=== PATIENT | female | born 1940 | race Caucasian/White ===

== ENCOUNTER → 2016-04-28 | Outpatient (CLI) | payer MEDICARE ==
[~2016-04-28] MED LIST: ATEN50TA2 PO; BUSP1TAB PO; CALC500T19 PO; CALC600T7 PO; FURO40TA2 PO; GLUC750C4 PO; LEVO25TA5 PO; PHEN200C PO; SPIR25TA2 PO; VIT D3
--- NOTE | 2016-04-28 14:57 | REP ---
WHOLE BODY BONE SCAN: Following the intravenous administration of 21.9 millicuries technetium 99m MDP, the patient's whole body is imaged in the anterior and posterior projections, with additional oblique images of the thoracic and pelvis regions performed as well as lateral views of the calvarium, knees and feet. There is increased periarticular uptake in both shoulders, elbows, wrists, knees, and ankles compatible with arthritic changes. There is curvature of the thoracolumbar spine. There is no scintigraphic evidence of osseous metastases. There is no definite evidence of Paget's disease. Renal and bladder activity are seen. IMPRESSION: Increased periarticular uptake in multiple joints compatible with arthritic changes. No compelling scintigraphic evidence of osseous metastases or Paget's disease. Signed by Rommel Szymanski MD 04/28/2016 04:15 P
== END ==
LOC: M RAD 09:56
PROVIDERS: ATTEND Internal Medicine Rheumatology
DX: R79.89 Other specified abnormal findings of blood chemistry (principal)
CPT/HCPCS: 78306; A9503

== ENCOUNTER → 2016-05-16 | Outpatient (CLI) | payer MEDICARE ==
[~2016-05-16] MED LIST changes: +GASTROGRAFIN SOLUTION 30ML (Q9963) As Ordered ONE; +ISOVUE-370 76% 100ML VIAL (Q9967) As Ordered ONE
--- NOTE | 2016-05-16 12:41 | REP ---
CT of the abdomen, multiphase imaging of the pelvis is excluded: Scanning is initially performed without IV contrast. This is followed by dual phase IV contrast enhanced scanning initially during the portal venous phase of enhancement and later during the delayed equilibrium phase of enhancement. There is bowel contrast on all phases of the study. Comparison is the abdominal ultrasound 04/22/2010. The visualized lung dixon are unremarkable. The hepatic parenchyma is homogeneous on all phases of the study. The hepatic parenchyma is similar density to the spleen. There is no CT evidence of hepato steatosis. No focal hepatic masses or cysts are identified. There is no intrahepatic or extrahepatic biliary duct dilatation. The pancreas is normal size and unremarkable. The spleen measures 14 centimeters craniocaudad. This is in the upper normal size range. Normal is 12-15 cm. The splenic parenchyma is homogeneous. The adrenals are unremarkable. The kidneys are unremarkable except for a small subcapsular cortical cyst in the left kidney measuring up to 15 mm at the upper pole posteriorly. The abdominal aorta is unremarkable except for occasional calcified atheroma. There are occasional normal-sized periaortic lymph nodes. The visualized bowel is unremarkable. There is apparent wall thickening of the gastric antrum. This is nonspecific and could be artifact from under distension or could represent inflammation or neoplasm. Please correlate clinically. Impression: The liver is unremarkable. Spleen is upper normal size but otherwise unremarkable. There is a left renal cyst. There is apparent thickening of the gastric antral wall, nonspecific, artifact from under distension versus inflammation versus neoplasm. There are no comparison studies. Signed by Rommel Soria MD 05/16/2016 12:32 P
== END ==
LOC: M RAD 11:06
PROVIDERS: ATTEND Internal Medicine Rheumatology
DX: R79.89 Other specified abnormal findings of blood chemistry (principal); N28.1 Cyst of kidney, acquired
CPT/HCPCS: 74170; Q9963; Q9967

== ENCOUNTER → 2016-08-01 | Outpatient (REF) | payer MEDICARE ==
[~2016-08-01] MED LIST changes: -GASTROGRAFIN SOLUTION 30ML (Q9963) As Ordered ONE; -ISOVUE-370 76% 100ML VIAL (Q9967) As Ordered ONE
[2016-08-01 13:26] LABS: BASO % 0.3 % (0.0-1.0); EOS % 0.4 % (0.0-3.0); LYMPH # 0.9 K/mm3 (1.5-4.5); LYMPH % 20.5 % (24.0-44.0); MEAN CORPUSCULAR HEMOGLOBIN 32.3 pg (27.0-33.0); MEAN CORPUSCULAR HGB CONC 33.1 g/dl (32.0-36.5); MEAN CORPUSCULAR VOLUME 97.6 fl (80.0-96.0); MONO # 0.4 K/mm3 (0.0-0.8); MONO % 9.5 % (0.0-5.0); NEUTROPHILS % 68.2 % (36.0-66.0); RED CELL DISTRIBUTION WIDTH 17.4 % (11.5-14.5); WHITE BLOOD COUNT 4.3 K/mm3 (4.0-10.0)
== END ==
LOC: M LABDRAW1 12:15
PROVIDERS: ATTEND Physician Assistant
DX: M05.79 Rheumatoid arthritis with rheumatoid factor of multiple sites without organ or systems involvement (principal); R79.89 Other specified abnormal findings of blood chemistry; Z79.899 Other long term (current) drug therapy

== ENCOUNTER → 2016-09-22 | Outpatient (REF) | payer MEDICARE ==
[2016-09-22 12:28] LABS: BASO % 0.8 % (0.0-1.0); EOS % 0.4 % (0.0-3.0); LYMPH # 0.9 K/mm3 (1.5-4.5); LYMPH % 19.7 % (24.0-44.0); MEAN CORPUSCULAR HEMOGLOBIN 33.5 pg (27.0-33.0); MEAN CORPUSCULAR HGB CONC 32.4 g/dl (32.0-36.5); MEAN CORPUSCULAR VOLUME 103.4 fl (80.0-96.0); MONO # 0.4 K/mm3 (0.0-0.8); MONO % 9.4 % (0.0-5.0); NEUTROPHILS # 2.8 K/mm3 (1.8-7.7); RED CELL DISTRIBUTION WIDTH 14.4 % (11.5-14.5)
[2016-09-22 14:49] LABS: ALBUMIN 3.5 GM/DL (3.2-5.2); CREATININE FOR GFR 1.02 MG/DL (0.55-1.02); GLOMERULAR FILTRATION RATE 55.8 (>39)
== END ==
LOC: M LABDRAW1 11:41
PROVIDERS: ATTEND Internal Medicine Rheumatology
DX: M05.79 Rheumatoid arthritis with rheumatoid factor of multiple sites without organ or systems involvement (principal); Z79.899 Other long term (current) drug therapy

== ENCOUNTER → 2016-11-12 | Outpatient (REF) | payer MEDICARE ==
[2016-11-12 12:13] LABS: BASO % 0.5 % (0.0-1.0); EOS % 0.5 % (0.0-3.0); LYMPH # 0.5 10^3/uL (1.5-4.5); LYMPH % 13.2 % (24.0-44.0); MEAN CORPUSCULAR HEMOGLOBIN 33.2 pg (27.0-33.0); MEAN CORPUSCULAR HGB CONC 32.7 g/dl (32.0-36.5); MEAN CORPUSCULAR VOLUME 101.5 fl (80.0-96.0); MONO # 0.4 10^3/uL (0.0-0.8); MONO % 10.5 % (0.0-5.0); NEUTROPHILS % 74.3 % (36.0-66.0); PLATELET COUNT, AUTOMATED 153 10^3/uL (150-450); RED CELL DISTRIBUTION WIDTH 13.2 % (11.5-14.5); WHITE BLOOD COUNT 4.1 10^3/uL (4.0-10.0)
[2016-11-12 12:19] LABS: ADD MANUAL DIFFER NO; DIFF SLIDE NUMBER 171
[2016-11-12 12:31] LABS: ALBUMIN/GLOBULIN RATIO 0.73 (1.00-1.93); ALKALINE PHOSPHATASE 246 U/L (45-117); ALT/SGPT 48 U/L (12-78); ANION GAP 7 MEQ/L (8-16); AST/SGOT 28 U/L (15-37); BILIRUBIN,TOTAL 0.3 MG/DL (0.2-1.0); BLOOD UREA NITROGEN 28 MG/DL (7-18); CALCIUM LEVEL 9.1 MG/DL (8.8-10.2); CARBON DIOXIDE LEVEL 29 MEQ/L (21-32); CHLORIDE LEVEL 104 MEQ/L (98-107); GLOMERULAR FILTRATION RATE > 60.0 (>39); GLUCOSE, FASTING 90 MG/DL (83-110); SODIUM LEVEL 140 MEQ/L (136-145); TOTAL PROTEIN 7.1 GM/DL (6.4-8.2)
== END ==
LOC: M LABDRAW1 10:05
PROVIDERS: ATTEND Family Medicine
DX: E03.9 Hypothyroidism, unspecified (principal); M05.79 Rheumatoid arthritis with rheumatoid factor of multiple sites without organ or systems involvement

== ENCOUNTER → 2016-11-12 | Outpatient (REF) | payer MEDICARE ==
[2016-11-12 12:16] LABS: ALBUMIN 3.2 GM/DL (3.2-5.2); ALKALINE PHOSPHATASE 262 U/L (45-117); ALT/SGPT 46 U/L (12-78); AST/SGOT 29 U/L (15-37); BLOOD UREA NITROGEN 26 MG/DL (7-18); CREATININE FOR GFR 0.85 MG/DL (0.55-1.02); GLOMERULAR FILTRATION RATE > 60.0 (>39)
[2016-11-12 12:22] LABS: BASO % 0.2 % (0.0-1.0); EOS % 0.5 % (0.0-3.0); IMMATURE GRANULOCYTE % 0.9 % (0-0); LYMPH # 0.6 10^3/uL (1.5-4.5); LYMPH % 13.6 % (24.0-44.0); MEAN CORPUSCULAR HGB CONC 32.6 g/dl (32.0-36.5); MEAN CORPUSCULAR VOLUME 101.2 fl (80.0-96.0); MONO # 0.4 10^3/uL (0.0-0.8); NEUTROPHILS # 3.2 10^3/uL (1.8-7.7); NEUTROPHILS % 74.8 % (36.0-66.0); RED CELL DISTRIBUTION WIDTH 13.2 % (11.5-14.5); WHITE BLOOD COUNT 4.3 10^3/uL (4.0-10.0)
== END ==
LOC: M LAB REF 11:48
PROVIDERS: ATTEND Internal Medicine Rheumatology
DX: M05.79 Rheumatoid arthritis with rheumatoid factor of multiple sites without organ or systems involvement (principal)

== ENCOUNTER 2017-01-14 07:11 | Day surgery (SDC) | payer MEDICARE ==
[~2017-01-14] VITALS: Ht 157.5 cm; Wt 57.2 kg
[~2017-01-14 07:11] MED LIST changes: +ACETAMINOPHEN 325 MG TAB PO PRN; +BSS with VANC/TOB/EPI for EYE CASES IR ONE; +CYCLOPENTOLATE 2% OPHTH SOLN 2ML BTL OS ONE; +LIDOCAINE 3.5 % 1ML OPHTH TOPICAL GEL OU ONE; +OFLOXACIN 0.3 % (OCUFLOX) OPTH SOL 5ML OS ONE; +PHENYLEPHRINE 2.5% OPHTH SOL 2ML OS ONE; +PROPARACAINE 0.5% OPHTH SOL 15ML XX PRN; +TROPICAMIDE 1% OPHTH SOLN 2ML OS ONE
[2017-01-14] MEDS ORDERED: PROPARACAINE 0.5% OPHTH SOL 15ML OS PRN (07:48)
[2017-01-14] MEDS ORDERED: TRIMETHOBENZAMIDE 300 MG CAP PO PRN (08:00)
[2017-01-14] MEDS ORDERED: MOXIFLOXACIN IN BSS 0.25MG/0.25ML INTRACAMERAL INJ (OR EYE ONLY)(J2280) As Ordered ONE (08:34)
[2017-01-14] MEDS ORDERED: HEALON DUET (HEALON 10MG/ML 0.55ML & HEALON ENDOCOAT 30MG/ML 0.85ML) As Ordered ONE (08:34)
[2017-01-14] MEDS ORDERED: LIDOCAINE 1% SDV 5 ML VIAL As Ordered ONE (08:34)
[2017-01-14] MEDS ORDERED: POVIDONE-IODINE 5% OPHTH PREP SOL 30ML As Ordered ONE (08:34)
[2017-01-14] MEDS ORDERED: TRIAMCINOLONE PRES FR 40 MG/ML 1ML(TRIESENCE)(OR EYE ONLY)(J3300 PER 1MG) As Ordered ONE (08:34)
[2017-01-14] MEDS ORDERED: fentaNYL 100 MCG/2 ML INJECTION (J3010) As Ordered ONE (08:52)
[2017-01-14] MEDS ORDERED: MIDAZOLAM INJ 2 MG/2 ML VIAL (J2250) As Ordered ONE (08:52)
[2017-01-14 10:00] VITALS: BP 116/63
== END 2017-01-14 10:07 | disposition home or self-care (01) ==
LOC: M SDC 07:11
PROVIDERS: ATTEND Ophthalmology
DX: H26.9 Unspecified cataract (principal); I10 Essential (primary) hypertension; E03.9 Hypothyroidism, unspecified; K21.9 Gastro-esophageal reflux disease without esophagitis; M05.70 Rheumatoid arthritis with rheumatoid factor of unspecified site without organ or systems involvement; G40.909 Epilepsy, unspecified, not intractable, without status epilepticus; Z79.899 Other long term (current) drug therapy; Z88.2 Allergy status to sulfonamides
CPT/HCPCS: 66984; J2250; J2280; J3010; J3300; V2632

== ENCOUNTER → 2017-06-15 | Outpatient (REF) | payer MEDICARE ==
[2017-06-15 12:45] LABS: BASO % 0.4 % (0.0-1.0); EOS % 0.7 % (0.0-3.0); HEMATOCRIT 34.2 % (36.0-47.0); HEMOGLOBIN 11.3 g/dl (12.0-15.5); IMMATURE GRANULOCYTE % 0.4 % (0-3.0); LYMPH # 0.9 10^3/uL (1.5-4.5); LYMPH % 30.7 % (24.0-44.0); MEAN CORPUSCULAR HEMOGLOBIN 33.3 pg (27.0-33.0); MEAN CORPUSCULAR VOLUME 100.9 fl (80.0-96.0); MONO # 0.5 10^3/uL (0.0-0.8); MONO % 16.8 % (0.0-5.0); NEUTROPHILS # 1.4 10^3/uL (1.8-7.7); PLATELET COUNT, AUTOMATED 111 10^3/uL (150-450); RED BLOOD COUNT 3.39 10^6/uL (4.00-5.40); RED CELL DISTRIBUTION WIDTH 14.1 % (11.5-14.5); WHITE BLOOD COUNT 2.8 10^3/uL (4.0-10.0)
== END ==
LOC: M LABDRAW1 09:11
DX: Z79.899 Other long term (current) drug therapy (principal)
CPT/HCPCS: 85027

== ENCOUNTER → 2017-07-09 | Outpatient (REF) | payer MEDICARE ==
[2017-07-09 09:32] LABS: BASO % 0.6 % (0.0-1.0); HEMATOCRIT 35.4 % (36.0-47.0); HEMOGLOBIN 11.8 g/dl (12.0-15.5); IMMATURE GRANULOCYTE % 0.3 % (0-3.0); LYMPH # 0.8 10^3/uL (1.5-4.5); LYMPH % 25.7 % (24.0-44.0); MEAN CORPUSCULAR HEMOGLOBIN 33.3 pg (27.0-33.0); MEAN CORPUSCULAR HGB CONC 33.3 g/dl (32.0-36.5); MONO # 0.5 10^3/uL (0.0-0.8); MONO % 16.2 % (0.0-5.0); NEUTROPHILS # 1.8 10^3/uL (1.8-7.7); NEUTROPHILS % 56.2 % (36.0-66.0); PLATELET COUNT, AUTOMATED 129 10^3/uL (150-450); RED BLOOD COUNT 3.54 10^6/uL (4.00-5.40); RED CELL DISTRIBUTION WIDTH 13.3 % (11.5-14.5); WHITE BLOOD COUNT 3.2 10^3/uL (4.0-10.0)
[2017-07-09 10:00] LABS: ALKALINE PHOSPHATASE 255 U/L (45-117); ALT/SGPT 23 U/L (12-78); AST/SGOT 20 U/L (7-37); C REACTIVE PROTEIN QUANTITATIV 5.98 MG/DL (0.00-0.30); CREATININE FOR GFR 1.05 MG/DL (0.55-1.30); GLOMERULAR FILTRATION RATE 53.8 (>39)
[2017-07-09 10:38] LABS: ERYTHROCYTE SEDIMENTATION RATE 82 mm/hr (0-30)
== END ==
LOC: M LABDRAW1 08:49
DX: M05.79 Rheumatoid arthritis with rheumatoid factor of multiple sites without organ or systems involvement (principal)
CPT/HCPCS: 84460

== ENCOUNTER → 2017-09-18 | Outpatient (REF) | payer MEDICARE ==
[2017-09-18 10:21] LABS: BASO % 0.2 % (0.0-1.0); EOS % 0.4 % (0.0-3.0); HEMATOCRIT 35.2 % (36.0-47.0); HEMOGLOBIN 11.4 g/dl (12.0-15.5); IMMATURE GRANULOCYTE % 0.4 % (0-3.0); LYMPH # 0.7 10^3/uL (1.5-4.5); LYMPH % 15.2 % (24.0-44.0); MEAN CORPUSCULAR HEMOGLOBIN 32.4 pg (27.0-33.0); MEAN CORPUSCULAR HGB CONC 32.4 g/dl (32.0-36.5); MONO # 0.4 10^3/uL (0.0-0.8); MONO % 9.4 % (0.0-5.0); NEUTROPHILS # 3.3 10^3/uL (1.8-7.7); NEUTROPHILS % 74.4 % (36.0-66.0); PLATELET COUNT, AUTOMATED 123 10^3/uL (150-450); RED BLOOD COUNT 3.52 10^6/uL (4.00-5.40); RED CELL DISTRIBUTION WIDTH 13.5 % (11.5-14.5); WHITE BLOOD COUNT 4.5 10^3/uL (4.0-10.0)
[2017-09-18 10:41] LABS: ERYTHROCYTE SEDIMENTATION RATE 63 mm/hr (0-30)
[2017-09-18 11:04] LABS: ALBUMIN 3.2 GM/DL (3.2-5.2); ALT/SGPT 34 U/L (12-78); AST/SGOT 20 U/L (7-37); C REACTIVE PROTEIN QUANTITATIV 4.94 MG/DL (0.00-0.30); CREATININE FOR GFR 1.05 MG/DL (0.55-1.30); GLOMERULAR FILTRATION RATE 53.8 (>39)
== END ==
LOC: M LABDRAW1 10:11
DX: Z79.899 Other long term (current) drug therapy (principal)
CPT/HCPCS: 84460

== ENCOUNTER → 2018-01-20 | Outpatient (REF) | payer MEDICARE ==
[2018-01-20 12:02] LABS: BASO % 0.2 % (0.0-1.0); EOS % 0.5 % (0.0-3.0); HEMATOCRIT 33.5 % (36.0-47.0); HEMOGLOBIN 10.6 g/dl (12.0-15.5); IMMATURE GRANULOCYTE % 0.5 % (0-3.0); LYMPH # 0.8 10^3/uL (1.5-4.5); MEAN CORPUSCULAR HEMOGLOBIN 32.1 pg (27.0-33.0); MEAN CORPUSCULAR HGB CONC 31.6 g/dl (32.0-36.5); MEAN CORPUSCULAR VOLUME 101.5 fl (80.0-96.0); MONO # 0.7 10^3/uL (0.0-0.8); MONO % 17.1 % (0.0-5.0); NEUTROPHILS # 2.7 10^3/uL (1.8-7.7); NEUTROPHILS % 63.7 % (36.0-66.0); PLATELET COUNT, AUTOMATED 218 10^3/uL (150-450); RED CELL DISTRIBUTION WIDTH 13.4 % (11.5-14.5); WHITE BLOOD COUNT 4.3 10^3/uL (4.0-10.0)
== END ==
LOC: M LABDRAW1 08:58
DX: R79.89 Other specified abnormal findings of blood chemistry (principal)
CPT/HCPCS: 85027

== ENCOUNTER → 2018-03-29 | Outpatient (REF) | payer MEDICARE ==
[~2018-03-29] MED LIST changes: -ACETAMINOPHEN 325 MG TAB PO PRN; -BSS with VANC/TOB/EPI for EYE CASES IR ONE; -CYCLOPENTOLATE 2% OPHTH SOLN 2ML BTL OS ONE; -LIDOCAINE 3.5 % 1ML OPHTH TOPICAL GEL OU ONE; -OFLOXACIN 0.3 % (OCUFLOX) OPTH SOL 5ML OS ONE; -PHENYLEPHRINE 2.5% OPHTH SOL 2ML OS ONE; -PROPARACAINE 0.5% OPHTH SOL 15ML XX PRN; +SPIR-10 PO; -SPIR25TA2 PO; -TROPICAMIDE 1% OPHTH SOLN 2ML OS ONE
[2018-03-29 15:59] LABS: BASO % 0.3 % (0.0-1.0); EOS % 0.3 % (0.0-3.0); HEMATOCRIT 35.3 % (36.0-47.0); HEMOGLOBIN 11.1 g/dl (12.0-15.5); LYMPH # 0.7 10^3/uL (1.5-4.5); LYMPH % 19.9 % (24.0-44.0); MEAN CORPUSCULAR HEMOGLOBIN 31.3 pg (27.0-33.0); MEAN CORPUSCULAR HGB CONC 31.4 g/dl (32.0-36.5); MEAN CORPUSCULAR VOLUME 99.4 fl (80.0-96.0); MONO # 0.4 10^3/uL (0.0-0.8); MONO % 11.1 % (0.0-5.0); NEUTROPHILS # 2.3 10^3/uL (1.8-7.7); NEUTROPHILS % 67.8 % (36.0-66.0); PLATELET COUNT, AUTOMATED 200 10^3/uL (150-450); RED BLOOD COUNT 3.55 10^6/uL (4.00-5.40); WHITE BLOOD COUNT 3.3 10^3/uL (4.0-10.0)
[2018-03-29 16:34] LABS: ERYTHROCYTE SEDIMENTATION RATE 85 mm/hr (0-30)
[2018-03-30 09:18] LABS: ALBUMIN 3.2 GM/DL (3.2-5.2); ALT/SGPT 46 U/L (12-78); BILIRUBIN,TOTAL 0.2 MG/DL (0.2-1.0); BLOOD UREA NITROGEN 25 MG/DL (7-18); C REACTIVE PROTEIN QUANTITATIV 9.22 MG/DL (0.00-0.30); CARBON DIOXIDE LEVEL 28 MEQ/L (21-32); CHLORIDE LEVEL 106 MEQ/L (98-107); CREATININE FOR GFR 0.87 MG/DL (0.55-1.30); GAMMA GLUTAMYLTRANSPEPTIDASE 71 U/L (5-55); GLOMERULAR FILTRATION RATE > 60.0 (>32); GLUCOSE, FASTING 84 MG/DL (70-100); POTASSIUM SERUM 4.8 MEQ/L (3.5-5.1); RHEUMATOID FACTOR QUANT < 10.0 IU/ML (<15.0); SODIUM LEVEL 138 MEQ/L (136-145); TOTAL PROTEIN 7.8 GM/DL (6.4-8.2)
== END ==
LOC: M SFHCPLAZ 12:11
PROVIDERS: ATTEND Internal Medicine Rheumatology
DX: K75.4 Autoimmune hepatitis (principal); M05.79 Rheumatoid arthritis with rheumatoid factor of multiple sites without organ or systems involvement

== ENCOUNTER → 2018-03-31 | Outpatient (CLI) | payer MEDICARE ==
--- NOTE | 2018-03-31 12:28 | REP ---
BILATERAL AP AND LATERAL WRIST, FOUR VIEWS: HISTORY: Pain. RIGHT WRIST: There is no acute fracture or dislocation. There is narrowing of the radiocarpal and first carpometacarpal joint space. The remaining joint spaces are normal in appearance. The bony structure is osteopenic. IMPRESSION: Degenerative change as described above. LEFT WRIST: There is no acute fracture or dislocation. There is narrowing of the radial carpal, ulnar carpal, and first carpometacarpal joint space. There is narrowing of the second through fifth metacarpal phalangeal joint spaces. The bony structure is osteopenic. IMPRESSION: Degenerative change as described above. Electronically Signed by Neal Gaston MD 03/31/2018 12:36 P
--- NOTE | 2018-03-31 16:05 | REP ---
BILATERAL HANDS, EIGHT VIEWS: HISTORY: Pain. RIGHT HAND: There is no acute fracture or dislocation. There is narrowing of the radiocarpal and first metacarpal joint space. The remaining joint spaces are normal in appearance. The bony structure is osteopenic. IMPRESSION: Degenerative change as described above. LEFT HAND: There is no acute fracture or dislocation. There is narrowing of the radiocarpal and first carpometacarpal joint space. The remaining joint spaces are normal in appearance. A subchondral cyst is present in the distal radius. The bony structure is osteopenic. IMPRESSION: Degenerative change as described above. Electronically Signed by Neal Gaston MD 03/31/2018 04:16 P
== END ==
LOC: M ADAMS 09:50
PROVIDERS: ATTEND Internal Medicine Rheumatology
DX: M05.79 Rheumatoid arthritis with rheumatoid factor of multiple sites without organ or systems involvement (principal); M19.031 Primary osteoarthritis, right wrist; M19.032 Primary osteoarthritis, left wrist; M19.041 Primary osteoarthritis, right hand; M19.042 Primary osteoarthritis, left hand

== ENCOUNTER 2018-05-19 07:56 | Day surgery (SDC) | payer MEDICARE ==
[~2018-05-19] VITALS: Ht 157.5 cm; Wt 49.4 kg
[~2018-05-19 07:56] MED LIST changes: +FOLI1TAB11 PO; +METH2.5T48 PO; +NS 1,000 ML IV ONE; +PRED25TA PO
[2018-05-19] MEDS ORDERED: D 101000 PO (08:37)
[2018-05-19] MEDS ORDERED: LIDOCAINE 2% INJ 100 MG/5 ML SDV (FOR ANES.) As Ordered ONE (08:53)
[2018-05-19] MEDS ORDERED: PROPOFOL 200 MG/20 ML VIAL As Ordered ONE ×2 (08:53→09:19)
--- NOTE | 2018-05-19 09:35 | ROOR ---
Patient Name: Ashlyn Cárdenas Procedure Date: 05/19/2018 8:41 AM Date of : 1940 Age: 78 Room: [facility] Gender: Female Note Status: Finalized Procedure: Colonoscopy Indications: Surveillance: Personal history of adenomatous polyps on last colonoscopy 5 years ago Providers: Rolando Kulkarni MD Referring MD: Sheree Bueno MD Requesting Provider: Medicines: Monitored Anesthesia Care Complications: No immediate complications. Procedure: Pre-Anesthesia Assessment: - Prior to the procedure, a History and Physical was performed, and patient medications and allergies were reviewed. The patient is competent. The risks and benefits of the procedure and the sedation options and risks were discussed with the patient. All questions were answered and informed consent was obtained. Patient identification and proposed procedure were verified by the physician, the nurse and the anesthesiologist in the endoscopy suite. Mental Status Examination: alert and oriented. Airway Examination: normal oropharyngeal airway and neck mobility. Respiratory Examination: clear to auscultation. CV Examination: normal. Prophylactic Antibiotics: The patient does not require prophylactic antibiotics. Prior Anticoagulants: The patient has taken no previous anticoagulant or antiplatelet agents. ASA Grade Assessment: III - A patient with severe systemic disease. After reviewing the risks and benefits, the patient was deemed in satisfactory condition to undergo the procedure. The anesthesia plan was to use monitored anesthesia care (MAC). Immediately prior to administration of medications, the patient was re-assessed for adequacy to receive sedatives. The heart rate, respiratory rate, oxygen saturations, blood pressure, adequacy of pulmonary ventilation, and response to care were monitored throughout the procedure. The physical status of the patient was re-assessed after the procedure. The Colonoscope was introduced through the anus and advanced to the cecum, identified by appendiceal orifice and ileocecal valve. The colonoscopy was technically difficult and complex due to a tortuous colon, inability to fully insufflate the rectum and sigmoid, need abdominal pressure to straighten the colon The quality of the bowel preparation was good. Findings: Skin tags were found on perianal exam. A few small-mouthed diverticula were found in the sigmoid colon. There was no evidence of diverticular bleeding. Five flat polyps were found in the hepatic flexure and ascending colon. The polyps were 1 to 4 mm in size. These polyps were removed with a cold snare. Resection and retrieval were complete. Estimated blood loss was minimal. The retroflexed view of the distal rectum and anal verge was normal and showed no anal or rectal abnormalities. Impression: - Perianal skin tags found on perianal exam. - Mild diverticulosis in the sigmoid colon. There was no evidence of diverticular bleeding. - Five 1 to 4 mm polyps at the hepatic flexure and in the ascending colon, removed with a cold snare. Resected and retrieved. - The distal rectum and anal verge are normal on retroflexion view. Recommendation: - Discharge patient to home (ambulatory). - - Repeat colonoscopy to be discussed with patient and provider depending on over all state of health Rolando Kulkarni MD Rolando Kulkarni MD 05/19/2018 9:35:19 AM Electronically signed by Rolando Kulkarni MD Number of Addenda: 0 Note Initiated On: 05/19/2018 8:41 AM Estimated Blood Loss: Estimated blood loss was minimal.
[2018-05-19 09:50] VITALS: BP 98/51
== END 2018-05-19 10:08 | disposition home or self-care (01) ==
LOC: M OPP 07:56
PROVIDERS: ATTEND Surgery
DX: D12.2 Benign neoplasm of ascending colon (principal); D12.3 Benign neoplasm of transverse colon; K64.4 Residual hemorrhoidal skin tags; K57.30 Diverticulosis of large intestine without perforation or abscess without bleeding; Z86.010 Personal history of colon polyps

== ENCOUNTER → 2018-05-25 | Outpatient (CLI) | payer MEDICARE ==
[~2018-05-25] MED LIST changes: +D 101000 PO; -NS 1,000 ML IV ONE
--- NOTE | 2018-05-25 09:37 | REP ---
Complete abdominal sonography: History: Thrombocytopenia. Assess liver and spleen size, rule out adenopathy. Comparison CT study is from May 16, 2016. Sonographic findings: Scanning through the right upper quadrant of the abdomen demonstrates multiple tiny gallbladder wall polyps. No stone is seen. No pericholecystic fluid is noted. Common bile duct is mildly prominent at 0.8 cm in greatest diameter. No focal liver lesion is appreciated. The liver does not appear to be enlarged measuring 13 cm in vertical span in the midclavicular line. No pancreatic abnormalities observed. The spleen is mildly prominent measuring 12.7 x 5.6 x 11.1 cm. It appears to have been larger at the time of the 2017 CT study. The main portal vein measures 14 mm in greatest diameter which is slightly prominent. A normal caliber aorta is seen with some atherosclerotic changes. 2.5 cm AP dimension. Renal cortical echogenicity pattern is increased bilaterally consistent with chronic medical renal disease. The right kidney measures 10.4 x 5.1 x 3.8 cm. Left renal dimensions are 11.8 x 3.9 x 3.9 cm. There is a 0.6 cm cyst in the upper pole of the left kidney. There are two lower pole cysts affecting the right kidney which measures 0.3 and 1.1 cm in greatest diameter respectively. Impression: Borderline CBD, 8 mm. Tiny gallbladder wall polyps. Hyperechoic renal cortex consistent with chronic medical renal disease. Mildly prominent spleen. Electronically Signed by Juanjo Lyon MD 05/25/2018 10:24 A
== END ==
LOC: M RAD 07:44
PROVIDERS: ATTEND Nurse Practitioner Family
DX: K82.4 Cholesterolosis of gallbladder (principal); D64.9 Anemia, unspecified; D72.819 Decreased white blood cell count, unspecified; D69.6 Thrombocytopenia, unspecified

== ENCOUNTER → 2018-08-19 | Outpatient (REF) | payer MEDICARE ==
[~2018-08-19] MED LIST changes: +B-1100TA2 PO; +BUSP15TA90 PO; +GLUC750C PO; +PYRI25TA3 PO
[2018-08-19 19:05] LABS: ALT/SGPT 40 U/L (12-78); BILIRUBIN,TOTAL 0.2 MG/DL (0.2-1.0); BLOOD UREA NITROGEN 28 MG/DL (7-18); CALCIUM LEVEL 9.1 MG/DL (8.8-10.2); CARBON DIOXIDE LEVEL 34 MEQ/L (21-32); CHLORIDE LEVEL 105 MEQ/L (98-107); COMPLEMENT C3 159 MG/DL (90-180); COMPLEMENT C4 17 MG/DL (10-40); CREATININE FOR GFR 0.97 MG/DL (0.55-1.30); GLOMERULAR FILTRATION RATE 58.8 (>32); GLUCOSE, FASTING 100 MG/DL (70-100); IMMUNOGLOBULIN G 2020 MG/DL (681-1648); IMMUNOGLOBULIN M 95.2 MG/DL (40-230); POTASSIUM SERUM 3.9 MEQ/L (3.5-5.1); RHEUMATOID FACTOR QUANT < 10.0 IU/ML (<15.0); SODIUM LEVEL 140 MEQ/L (136-145); TOTAL PROTEIN 8.3 GM/DL (6.4-8.2)
[2018-08-19 19:48] LABS: BASO % 0.3 % (0.0-1.0); EOS % 0.3 % (0.0-3.0); HEMATOCRIT 32.9 % (36.0-47.0); HEMOGLOBIN 10.7 g/dl (12.0-15.5); LYMPH # 0.9 10^3/uL (1.5-4.5); LYMPH % 24.5 % (24.0-44.0); MEAN CORPUSCULAR HEMOGLOBIN 31.1 pg (27.0-33.0); MEAN CORPUSCULAR HGB CONC 32.5 g/dl (32.0-36.5); MEAN CORPUSCULAR VOLUME 95.6 fl (80.0-96.0); MONO # 0.5 10^3/uL (0.0-0.8); MONO % 12.8 % (0.0-5.0); NEUTROPHILS # 2.3 10^3/uL (1.8-7.7); NEUTROPHILS % 61.6 % (36.0-66.0); PLATELET COUNT, AUTOMATED 251 10^3/uL (150-450); RED BLOOD COUNT 3.44 10^6/uL (4.00-5.40); WHITE BLOOD COUNT 3.8 10^3/uL (4.0-10.0)
[2018-08-19 20:11] LABS: ERYTHROCYTE SEDIMENTATION RATE 103 mm/hr (0-30)
== END ==
LOC: M LABDRAW1 14:46
PROVIDERS: ATTEND Internal Medicine Rheumatology
DX: M19.90 Unspecified osteoarthritis, unspecified site (principal); D72.819 Decreased white blood cell count, unspecified; K75.4 Autoimmune hepatitis

== ENCOUNTER → 2018-08-20 | Outpatient (REF) | payer MEDICARE ==
[2018-08-20 12:22] LABS: APPEARANCE, URINE CLEAR (CLEAR); BACTERIA, URINE AUTO 1+ (NEGATIVE); BILIRUBIN, URINE AUTO NEGATIVE (NEGATIVE); BLOOD, URINE BLOOD 1+ (NEGATIVE); COLOR, URINE YELLOW (YELLOW); GLUCOSE, URINE (UA) AUTO NEGATIVE (NEGATIVE); KETONE, URINE AUTO NEGATIVE (NEGATIVE); LEUKOCYTE ESTERASE, URINE AUTO 3+ (NEGATIVE); MUCUS, URINE SMALL (NEGATIVE); NITRITE, URINE AUTO POSITIVE (NEGATIVE); PROTEIN, URINE AUTO NEGATIVE (NEGATIVE); RBC, URINE AUTO 1 /HPF (0-3); SPECIFIC GRAVITY URINE AUTO 1.009 (1.002-1.035); SQUAMOUS EPITHELIAL CELL UR AU 4 /HPF (0-6); UROBILINOGEN, URINE AUTO 0.2 mg/dL (0.0-2.0); WBC, URINE AUTO 3 /HPF (0-3)
[2018-08-20 12:54] LABS: CREATININE,RANDOM URINE 27.9 MG/DL; TOTAL PROTEIN,RANDOM URINE 12.6 MG/DL (0.0-12.0)
== END ==
LOC: M SFHCPLAZ 11:26
PROVIDERS: ATTEND Internal Medicine Rheumatology
DX: M19.90 Unspecified osteoarthritis, unspecified site (principal); D72.819 Decreased white blood cell count, unspecified

== ENCOUNTER → 2018-09-15 | Outpatient (REF) | payer MEDICARE | LOC: M LABDRAW1 12:07 | PROVIDERS: ATTEND Internal Medicine Gastroenterology | DX: R94.5 Abnormal results of liver function studies (principal) ==

== ENCOUNTER → 2018-09-20 | Outpatient (CLI) | payer MEDICARE ==
--- NOTE | 2018-09-20 10:56 | REP ---
REASON: Increased LFTs. COMPARISON: 05/25/2108 showed gallbladder wall polyps and a mildly prominent CBD. Multiple ultrasonographic images of the liver show the hepatic parenchymal echo pattern to be within normal limits. There is no intrahepatic or extrahepatic ductal dilatation. The common bile duct measures 7 mm in its greatest dimension, which is within normal limits for the patient's age of 78 years. Multiple ultrasonographic images of the gallbladder again show echogenic foci adherent to the gallbladder wall, not casting comma-tail artifact or acoustic shadows measuring 2-3 mm and unchanged. There are no choleliths. The imaged portion of the pancreas and right kidney are unchanged. IMPRESSION: No significant change from 05/25/2018. Small gallbladder wall polyp. No acute disease. Electronically Signed by Amando Gordon DO 09/20/2018 12:27 P
== END ==
LOC: M RAD 07:54
PROVIDERS: ATTEND Internal Medicine Gastroenterology
DX: R94.5 Abnormal results of liver function studies (principal)

== ENCOUNTER → 2018-09-23 | Outpatient (REF) | payer MEDICARE ==
[2018-09-23 15:51] LABS: BASO % 0.2 % (0.0-1.0); HEMATOCRIT 35.4 % (36.0-47.0); HEMOGLOBIN 10.9 g/dl (12.0-15.5); LYMPH # 0.8 10^3/uL (1.5-4.5); LYMPH % 17.2 % (24.0-44.0); MEAN CORPUSCULAR HEMOGLOBIN 30.4 pg (27.0-33.0); MEAN CORPUSCULAR HGB CONC 30.8 g/dl (32.0-36.5); MEAN CORPUSCULAR VOLUME 98.9 fl (80.0-96.0); MONO # 0.4 10^3/uL (0.0-0.8); MONO % 9.4 % (0.0-5.0); NEUTROPHILS # 3.2 10^3/uL (1.8-7.7); NEUTROPHILS % 72.5 % (36.0-66.0); PLATELET COUNT, AUTOMATED 215 10^3/uL (150-450); RED BLOOD COUNT 3.58 10^6/uL (4.00-5.40); WHITE BLOOD COUNT 4.5 10^3/uL (4.0-10.0)
[2018-09-23 16:00] LABS: ALT/SGPT 47 U/L (12-78); BILIRUBIN,TOTAL 0.2 MG/DL (0.2-1.0); BLOOD UREA NITROGEN 28 MG/DL (7-18); CARBON DIOXIDE LEVEL 31 MEQ/L (21-32); CHLORIDE LEVEL 103 MEQ/L (98-107); CREATININE FOR GFR 0.77 MG/DL (0.55-1.30); GLOMERULAR FILTRATION RATE > 60.0 (>32); GLUCOSE, FASTING 91 MG/DL (70-100); POTASSIUM SERUM 4.6 MEQ/L (3.5-5.1); SODIUM LEVEL 139 MEQ/L (136-145); TOTAL PROTEIN 7.8 GM/DL (6.4-8.2)
[2018-09-23 16:43] LABS: ERYTHROCYTE SEDIMENTATION RATE 85 mm/hr (0-30)
== END ==
LOC: M LABDRAW1 11:28
PROVIDERS: ATTEND Internal Medicine Rheumatology
DX: M19.90 Unspecified osteoarthritis, unspecified site (principal)

== ENCOUNTER → 2018-11-10 | Outpatient (REF) | payer MEDICARE ==
[2018-11-10 19:33] LABS: ALBUMIN 2.9 GM/DL (3.2-5.2); BILIRUBIN,TOTAL 0.4 MG/DL (0.2-1.0); C REACTIVE PROTEIN QUANTITATIV 12.5 MG/DL (0.00-0.30); CALCIUM LEVEL 8.9 MG/DL (8.8-10.2); CREATININE FOR GFR 1.19 MG/DL (0.55-1.30); GLOMERULAR FILTRATION RATE 46.5 (>32); POTASSIUM SERUM 3.9 MEQ/L (3.5-5.1); TOTAL PROTEIN 7.7 GM/DL (6.4-8.2)
[2018-11-10 19:38] LABS: BASO % 0.3 % (0.0-1.0); EOS % 0.3 % (0.0-3.0); HEMATOCRIT 36.6 % (36.0-47.0); HEMOGLOBIN 11.2 g/dl (12.0-15.5); LYMPH # 0.9 10^3/uL (1.5-5.0); LYMPH % 25.1 % (24.0-44.0); MEAN CORPUSCULAR HEMOGLOBIN 29.6 pg (27.0-33.0); MEAN CORPUSCULAR HGB CONC 30.6 g/dl (32.0-36.5); MEAN CORPUSCULAR VOLUME 96.6 fl (80.0-96.0); MONO # 0.4 10^3/uL (0.0-0.8); MONO % 10.4 % (0.0-5.0); NEUTROPHILS # 2.4 10^3/uL (1.5-8.5); NEUTROPHILS % 63.4 % (36.0-66.0); PLATELET COUNT, AUTOMATED 222 10^3/uL (150-450); RED BLOOD COUNT 3.79 10^6/uL (4.00-5.40); WHITE BLOOD COUNT 3.7 10^3/uL (4.0-10.0)
[2018-11-10 20:10] LABS: ERYTHROCYTE SEDIMENTATION RATE 82 mm/hr (0-30)
== END ==
LOC: M SFHCADAM 15:16
PROVIDERS: ATTEND Internal Medicine Rheumatology
DX: M19.90 Unspecified osteoarthritis, unspecified site (principal); Z79.899 Other long term (current) drug therapy
CPT/HCPCS: 80053; 85025; 85652; 86140; G0463

== ENCOUNTER → 2018-12-28 | Outpatient (REF) | payer MEDICARE ==
[2018-12-28 20:09] LABS: BASO % 0.4 % (0.0-1.0); HEMATOCRIT 35.2 % (36.0-47.0); HEMOGLOBIN 10.9 g/dl (12.0-15.5); MEAN CORPUSCULAR HEMOGLOBIN 29.9 pg (27.0-33.0); MEAN CORPUSCULAR VOLUME 96.7 fl (80.0-96.0); MONO # 0.6 10^3/uL (0.0-0.8); MONO % 12.9 % (0.0-5.0); NEUTROPHILS % 64.3 % (36.0-66.0); PLATELET COUNT, AUTOMATED 269 10^3/uL (150-450); RED BLOOD COUNT 3.64 10^6/uL (4.00-5.40); WHITE BLOOD COUNT 4.6 10^3/uL (4.0-10.0)
[2018-12-28 20:25] LABS: ALBUMIN 2.8 GM/DL (3.2-5.2); BILIRUBIN,TOTAL 0.2 MG/DL (0.2-1.0); C REACTIVE PROTEIN QUANTITATIV 17.7 MG/DL (0.00-0.30); CALCIUM LEVEL 9.3 MG/DL (8.8-10.2); CREATININE FOR GFR 1.19 MG/DL (0.55-1.30); GLOMERULAR FILTRATION RATE 46.5 (>32); POTASSIUM SERUM 4.1 MEQ/L (3.5-5.1); TOTAL PROTEIN 8.2 GM/DL (6.4-8.2)
[2018-12-28 20:39] LABS: ERYTHROCYTE SEDIMENTATION RATE 102 mm/hr (0-30)
[2018-12-31 14:12] LABS: ANTI DS-DNA AB Positive (Negative)
== END ==
LOC: M LABDRWAD 19:17
PROVIDERS: ATTEND Internal Medicine Rheumatology
DX: M06.9 Rheumatoid arthritis, unspecified (principal)
CPT/HCPCS: 36415; 80053; 85025; 85652; 86140; 86160; 86225; G0463

== ENCOUNTER → 2018-12-30 | Outpatient (REF) | payer MEDICARE ==
[2018-12-30 19:35] LABS: APPEARANCE, URINE CLOUDY (CLEAR); BACTERIA, URINE AUTO NEGATIVE (NEGATIVE); BILIRUBIN, URINE AUTO NEGATIVE (NEGATIVE); BLOOD, URINE BLOOD 1+ (NEGATIVE); CALCIUM OXALATE CRYSTALS MODERATE; COLOR, URINE YELLOW (YELLOW); GLUCOSE, URINE (UA) AUTO NEGATIVE (NEGATIVE); KETONE, URINE AUTO NEGATIVE (NEGATIVE); LEUKOCYTE ESTERASE, URINE AUTO 3+ (NEGATIVE); MUCUS, URINE SMALL (NEGATIVE); NITRITE, URINE AUTO POSITIVE (NEGATIVE); PROTEIN, URINE AUTO NEGATIVE (NEGATIVE); RBC, URINE AUTO 22 /HPF (0-3); SPECIFIC GRAVITY URINE AUTO 1.018 (1.002-1.035); SQUAMOUS EPITHELIAL CELL UR AU 19 /HPF (0-6); UROBILINOGEN, URINE AUTO 0.2 mg/dL (0.0-2.0); WBC, URINE AUTO 22 /HPF (0-3)
== END ==
LOC: M SMT 18:26
PROVIDERS: ATTEND Internal Medicine Rheumatology
DX: M06.9 Rheumatoid arthritis, unspecified (principal)

== ENCOUNTER → 2019-01-22 | Outpatient (REF) | payer MEDICARE | LOC: M SFHCRHEU 12:07 | PROVIDERS: ATTEND Internal Medicine Rheumatology | DX: N30.01 Acute cystitis with hematuria (principal) ==

== ENCOUNTER → 2019-03-05 | Outpatient (REF) | payer MEDICARE ==
[2019-03-08 10:35] LABS: TOTAL PROTEIN 24 HOUR URINE 371.4 MG/24HR (50-150); URINE TOTAL PROTEIN 32.3 MG/DL (0-12)
== END ==
LOC: M LAB REF 09:40
PROVIDERS: ATTEND Internal Medicine Nephrology
DX: N18.3 Chronic kidney disease, stage 3 (moderate) (principal); M32.9 Systemic lupus erythematosus, unspecified; R80.9 Proteinuria, unspecified

== ENCOUNTER → 2019-03-11 | Outpatient (REF) | payer MEDICARE ==
[2019-03-11 19:32] LABS: PERCENT SATURATION 13.4 % (13.2-45.0)
== END ==
LOC: M LAB REF 10:18
PROVIDERS: ATTEND Internal Medicine Nephrology
DX: D64.9 Anemia, unspecified (principal)

== ENCOUNTER → 2019-04-01 | Outpatient (REF) | payer MEDICARE ==
[2019-04-01 12:51] LABS: BASO % 0.2 % (0.0-1.0); EOS % 0.2 % (0.0-3.0); HEMATOCRIT 35.4 % (36.0-47.0); HEMOGLOBIN 10.6 g/dl (12.0-15.5); LYMPH # 1.1 10^3/uL (1.5-5.0); LYMPH % 19.2 % (24.0-44.0); MEAN CORPUSCULAR HGB CONC 29.9 g/dl (32.0-36.5); MEAN CORPUSCULAR VOLUME 93.4 fl (80.0-96.0); MONO # 0.7 10^3/uL (0.0-0.8); MONO % 11.4 % (0.0-5.0); NEUTROPHILS # 3.9 10^3/uL (1.5-8.5); NEUTROPHILS % 68.6 % (36.0-66.0); PLATELET COUNT, AUTOMATED 312 10^3/uL (150-450); RED BLOOD COUNT 3.79 10^6/uL (4.00-5.40); WHITE BLOOD COUNT 5.7 10^3/uL (4.0-10.0)
[2019-04-01 13:03] LABS: ALBUMIN 2.8 GM/DL (3.2-5.2); ALT/SGPT 53 U/L (12-78); BILIRUBIN,TOTAL 0.2 MG/DL (0.2-1.0); BLOOD UREA NITROGEN 26 MG/DL (7-18); CARBON DIOXIDE LEVEL 30 MEQ/L (21-32); CHLORIDE LEVEL 105 MEQ/L (98-107); COMPLEMENT C3 156 MG/DL (90-180); COMPLEMENT C4 17 MG/DL (10-40); CREATININE FOR GFR 0.93 MG/DL (0.55-1.30); GLOMERULAR FILTRATION RATE > 60.0 (>32); GLUCOSE, FASTING 73 MG/DL (70-100); IMMUNOGLOBULIN G 1990 MG/DL (681-1648); IMMUNOGLOBULIN M 87.8 MG/DL (40-230); POTASSIUM SERUM 4.2 MEQ/L (3.5-5.1); SODIUM LEVEL 140 MEQ/L (136-145); TOTAL PROTEIN 8.4 GM/DL (6.4-8.2)
[2019-04-01 13:12] LABS: ERYTHROCYTE SEDIMENTATION RATE 104 mm/hr (0-30)
[2019-04-01 13:14] LABS: HEPATITIS B SURFACE ANTIGEN NEGATIVE (NEGATIVE)
[2019-04-05 00:06] LABS: ANTI DS-DNA AB Positive (Negative); ANTI-MITOCHONDRIAL ANTIBODY <20.0 Units (0.0-20.0); ANTI-SMOOTH MUSCLE ANTIBODY 30 Units (0-19); HEPATITIS B CORE ANTIBODY IGG Negative (Negative)
== END ==
LOC: M SFHCRHEU 10:41
PROVIDERS: ATTEND Internal Medicine
DX: M06.09 Rheumatoid arthritis without rheumatoid factor, multiple sites (principal); M32.14 Glomerular disease in systemic lupus erythematosus; K75.4 Autoimmune hepatitis
CPT/HCPCS: 36415; 80053; 82784; 85025; 85652; 86140; 86160; 86225; 86255; 86480; 86704; 86803; 87340; G0463

== ENCOUNTER → 2019-04-02 | Outpatient (CLI) | payer MEDICARE ==
--- NOTE | 2019-04-02 12:45 | REP ---
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 There is joint space narrowing at virtually no remaining articular cartilage of the medial lateral compartments. There is very little articular cartilage in the patellofemoral compartment. The patella is slightly subluxed laterally. There is questionably a joint effusion. There is demineralization. There is no fracture. No calcifications. Impression: Advanced tricompartment osteoarthritis and probable joint effusion. The patella is partially subluxed laterally. 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 There is marked joint space narrowing with virtually no remaining articular cartilage and medial lateral compartments and very little remaining cartilage in the patellofemoral compartment. There is no subluxation of the patella. There is no joint effusion. There is demineralization. Impression: Advanced tricompartment osteoarthritis. No joint effusion. No fracture or dislocation. Demineralization Electronically Signed by Rommel Soria MD 04/02/2019 12:37 P
--- NOTE | 2019-04-02 13:27 | REP ---
Bilateral feet: Right foot four views: There is demineralization. There is soft tissue edema over the dorsum. There is no fracture or dislocation. Joint spaces are unremarkable except for osteoarthritis at the great toe MTP articulation. Impression: Soft tissue edema over the dorsum. Demineralization. Great toe MTP osteoarthritis. There is a small calcaneal plantar spur. Left foot four views: There is soft tissue edema over the dorsum. Demineralization. Small calcaneal plantar spur. Joint spaces are unremarkable. Impression: Soft tissue edema over the dorsum. Demineralization. Electronically Signed by Rommel Soria MD 04/02/2019 01:18 P
[2019-04-02 18:23] LABS: CREATININE,RANDOM URINE 13.7 MG/DL; TOTAL PROTEIN,RANDOM URINE 8.8 MG/DL (0.0-12.0)
== END ==
LOC: M ADAMS 11:13
PROVIDERS: ATTEND Internal Medicine
DX: M24.562 Contracture, left knee (principal); M24.561 Contracture, right knee; M79.672 Pain in left foot; M79.671 Pain in right foot; M19.071 Primary osteoarthritis, right ankle and foot; M77.32 Calcaneal spur, left foot

== ENCOUNTER 2019-04-21 09:44 | Outpatient (CLI) | payer MEDICARE ==
[~2019-04-21] VITALS: Ht 154.9 cm; Wt 47.6 kg
[2019-04-21] MEDS ORDERED: NS IV ONE ×4 (10:00→11:00)
[2019-04-21] MEDS ORDERED: RITUXIMAB IV ONE ×4 (10:00→11:00)
[2019-04-21] MEDS ORDERED: diphenhydrAMINE INJ 50MG/ML VIAL (J1200) IV PRN (10:15)
[2019-04-21] MEDS ORDERED: ACETAMINOPHEN TAB 650MG DOSE (2X325MG) PO ONE (10:15)
[2019-04-21] MEDS ORDERED: methylPREDNISolone INJ 125 MG/2 ML VIAL (J2930) IV ONE (10:15)
[2019-04-21] MEDS ORDERED: EPINEPHrine INJ 1 MG/ML 1ML VIAL IM PRN (10:15)
[2019-04-21] MEDS ORDERED: ALBUTEROL SULFATE 2.5 MG/0.5 ML INH NEB SOLN INH PRN (10:15)
[2019-04-21] MEDS ORDERED: diphenhydrAMINE 25 MG CAP PO ONE (10:15)
[2019-04-21] MEDS ORDERED: methylPREDNISolone INJ 125 MG/2 ML VIAL (J2930) IV PRN (10:15)
[2019-04-21 10:30] VITALS: BP 119/73
== END 2019-04-21 15:30 | disposition home or self-care (01) ==
LOC: M INFU 09:44
PROVIDERS: ATTEND Internal Medicine
DX: M06.09 Rheumatoid arthritis without rheumatoid factor, multiple sites (principal); M32.12 Pericarditis in systemic lupus erythematosus; Z88.2 Allergy status to sulfonamides
CPT/HCPCS: 96375; 96413; J2930; J9312

== ENCOUNTER → 2019-04-29 | Outpatient (REF) | payer MEDICARE ==
[2019-04-29 15:41] LABS: BASO % 0.2 % (0.0-1.0); EOS % 0.2 % (0.0-3.0); HEMATOCRIT 35.4 % (36.0-47.0); HEMOGLOBIN 10.6 g/dl (12.0-15.5); LYMPH # 1.1 10^3/uL (1.5-5.0); LYMPH % 17.8 % (24.0-44.0); MEAN CORPUSCULAR HEMOGLOBIN 27.8 pg (27.0-33.0); MEAN CORPUSCULAR HGB CONC 29.9 g/dl (32.0-36.5); MEAN CORPUSCULAR VOLUME 92.9 fl (80.0-96.0); MONO # 0.7 10^3/uL (0.0-0.8); MONO % 11.9 % (0.0-5.0); NEUTROPHILS # 4.2 10^3/uL (1.5-8.5); NEUTROPHILS % 69.1 % (36.0-66.0); PLATELET COUNT, AUTOMATED 263 10^3/uL (150-450); RED BLOOD COUNT 3.81 10^6/uL (4.00-5.40); WHITE BLOOD COUNT 6.1 10^3/uL (4.0-10.0)
[2019-04-29 15:47] LABS: ALBUMIN 2.6 GM/DL (3.2-5.2); BILIRUBIN,TOTAL 0.2 MG/DL (0.2-1.0); C REACTIVE PROTEIN QUANTITATIV 11.9 MG/DL (0.00-0.30); CALCIUM LEVEL 8.7 MG/DL (8.8-10.2); CREATININE FOR GFR 1.05 MG/DL (0.55-1.30); GLOMERULAR FILTRATION RATE 53.5 (>32); POTASSIUM SERUM 4.6 MEQ/L (3.5-5.1); TOTAL PROTEIN 7.9 GM/DL (6.4-8.2)
[2019-04-29 15:59] LABS: ERYTHROCYTE SEDIMENTATION RATE 115 mm/hr (0-30)
== END ==
LOC: M SFHCADAM 13:12
PROVIDERS: ATTEND Internal Medicine
DX: M06.09 Rheumatoid arthritis without rheumatoid factor, multiple sites (principal)

== ENCOUNTER 2019-05-05 10:06 | Outpatient (CLI) | payer MEDICARE ==
[~2019-05-05] VITALS: Ht 154.9 cm; Wt 47.6 kg
[2019-05-05] VITALS (8 sets, daily range): BP systolic 98–129; BP diastolic 53–66
[2019-05-05] MEDS ORDERED: EPINEPHrine INJ 1 MG/ML 1ML VIAL IM PRN (11:00)
[2019-05-05] MEDS ORDERED: NS IV ONE (11:00)
[2019-05-05] MEDS ORDERED: ALBUTEROL SULFATE 2.5 MG/0.5 ML INH NEB SOLN INH PRN (11:00)
[2019-05-05] MEDS ORDERED: methylPREDNISolone INJ 125 MG/2 ML VIAL (J2930) IV PRN (11:00)
[2019-05-05] MEDS ORDERED: RITUXIMAB IV ONE (11:00)
[2019-05-05] MEDS ORDERED: diphenhydrAMINE INJ 50MG/ML VIAL (J1200) IV PRN (11:00)
[2019-05-05] MEDS ORDERED: diphenhydrAMINE 25 MG CAP PO ONE (11:00)
[2019-05-05] MEDS ORDERED: methylPREDNISolone INJ 125 MG/2 ML VIAL (J2930) IV ONE (11:00)
[2019-05-05] MEDS ORDERED: ACETAMINOPHEN TAB 650MG DOSE (2X325MG) PO ONE (11:00)
== END 2019-05-05 14:45 | disposition home or self-care (01) ==
LOC: M INFU 10:06
PROVIDERS: ATTEND Internal Medicine
DX: M06.09 Rheumatoid arthritis without rheumatoid factor, multiple sites (principal); M32.14 Glomerular disease in systemic lupus erythematosus; Z88.2 Allergy status to sulfonamides
CPT/HCPCS: 96365; 96366; 96375; J2930; J9312

== ENCOUNTER → 2019-07-07 | Outpatient (REF) | payer MEDICARE ==
[2019-07-07 18:39] LABS: BASO % 0.2 % (0.0-1.0); EOS % 0.2 % (0.0-3.0); HEMATOCRIT 35.5 % (36.0-47.0); HEMOGLOBIN 10.9 g/dl (12.0-15.5); LYMPH # 1.1 10^3/uL (1.5-5.0); LYMPH % 21.5 % (24.0-44.0); MEAN CORPUSCULAR HEMOGLOBIN 29.1 pg (27.0-33.0); MEAN CORPUSCULAR HGB CONC 30.7 g/dl (32.0-36.5); MEAN CORPUSCULAR VOLUME 94.7 fl (80.0-96.0); MONO # 0.8 10^3/uL (0.0-0.8); MONO % 14.8 % (0.0-5.0); NEUTROPHILS # 3.2 10^3/uL (1.5-8.5); NEUTROPHILS % 62.9 % (36.0-66.0); PLATELET COUNT, AUTOMATED 269 10^3/uL (150-450); RED BLOOD COUNT 3.75 10^6/uL (4.00-5.40); WHITE BLOOD COUNT 5.1 10^3/uL (4.0-10.0)
[2019-07-07 19:38] LABS: ERYTHROCYTE SEDIMENTATION RATE 94 mm/hr (0-30)
[2019-07-07 20:31] LABS: CREATININE,RANDOM URINE 21.5 MG/DL; TOTAL PROTEIN,RANDOM URINE 12.3 MG/DL (0.0-12.0)
[2019-07-07 20:37] LABS: ALBUMIN 2.9 GM/DL (3.2-5.2); BILIRUBIN,TOTAL 0.2 MG/DL (0.2-1.0); C REACTIVE PROTEIN QUANTITATIV 15.2 MG/DL (0.00-0.30); CALCIUM LEVEL 9.3 MG/DL (8.8-10.2); CREATININE FOR GFR 1.21 MG/DL (0.55-1.30); GLOMERULAR FILTRATION RATE 45.5 (>32); IMMUNOGLOBULIN M 58.5 MG/DL (40-230)
[2019-07-11 16:07] LABS: ANTI DS-DNA AB Positive (Negative)
== END ==
LOC: M SFHCADAM 15:21
PROVIDERS: ATTEND Internal Medicine
DX: M32.14 Glomerular disease in systemic lupus erythematosus (principal); M06.9 Rheumatoid arthritis, unspecified

== ENCOUNTER → 2019-08-11 | Outpatient (REF) | payer MEDICARE ==
[2019-08-11 13:35] LABS: CHOLESTEROL RISK RATIO 2.196 (<5); FREE T4 1.18 NG/DL (0.76-1.46); THYROID STIMULATING HORMONE 2.11 uIU/ML (0.358-3.740)
== END ==
LOC: M LABDRWAD 12:43
PROVIDERS: ATTEND Nurse Practitioner Family
DX: Z00.00 Encounter for general adult medical examination without abnormal findings (principal); M32.14 Glomerular disease in systemic lupus erythematosus

== ENCOUNTER → 2019-08-11 | Outpatient (REF) | payer MEDICARE ==
[2019-08-11 12:58] LABS: BASO % 0.3 % (0.0-1.0); EOS % 0.2 % (0.0-3.0); HEMATOCRIT 34.3 % (36.0-47.0); HEMOGLOBIN 10.7 g/dl (12.0-15.5); LYMPH # 0.7 10^3/uL (1.5-5.0); LYMPH % 12.2 % (24.0-44.0); MEAN CORPUSCULAR HGB CONC 31.2 g/dl (32.0-36.5); MEAN CORPUSCULAR VOLUME 96.1 fl (80.0-96.0); MONO # 0.7 10^3/uL (0.0-0.8); MONO % 12.4 % (0.0-5.0); NEUTROPHILS # 4.4 10^3/uL (1.5-8.5); NEUTROPHILS % 74.4 % (36.0-66.0); PLATELET COUNT, AUTOMATED 266 10^3/uL (150-450); RED BLOOD COUNT 3.57 10^6/uL (4.00-5.40); WHITE BLOOD COUNT 5.9 10^3/uL (4.0-10.0)
[2019-08-11 13:11] LABS: ALT/SGPT 31 U/L (12-78); BILIRUBIN,TOTAL 0.3 MG/DL (0.2-1.0); BLOOD UREA NITROGEN 28 MG/DL (7-18); CALCIUM LEVEL 9.4 MG/DL (8.8-10.2); CARBON DIOXIDE LEVEL 29 MEQ/L (21-32); CHLORIDE LEVEL 105 MEQ/L (98-107); CREATININE FOR GFR 0.87 MG/DL (0.55-1.30); GLOMERULAR FILTRATION RATE > 60.0 (>32); GLUCOSE, FASTING 89 MG/DL (70-100); POTASSIUM SERUM 4.4 MEQ/L (3.5-5.1); SODIUM LEVEL 138 MEQ/L (136-145); TOTAL PROTEIN 8.3 GM/DL (6.4-8.2)
[2019-08-11 13:22] LABS: ERYTHROCYTE SEDIMENTATION RATE 87 mm/hr (0-30)
[2019-08-16 08:09] LABS: ANTI DS-DNA AB Positive (Negative)
== END ==
LOC: M SFHCADAM 08:46
PROVIDERS: ATTEND Internal Medicine
DX: M32.14 Glomerular disease in systemic lupus erythematosus (principal)

== ENCOUNTER → 2019-09-13 | Outpatient (REF) | payer MEDICARE ==
[~2019-09-13] MED LIST changes: +CALC-212 PO; -CALC600T7 PO
[2019-10-10 11:04] LABS: ERYTHROCYTE SEDIMENTATION RATE 86 mm/hr (0-30)
[2019-10-10 20:28] LABS: BASO % 0.2 % (0.0-1.0); EOS % 0.2 % (0.0-3.0); HEMATOCRIT 36.8 % (36.0-47.0); HEMOGLOBIN 11.2 g/dl (12.0-15.5); LYMPH # 0.9 10^3/uL (1.5-5.0); MEAN CORPUSCULAR HEMOGLOBIN 29.7 pg (27.0-33.0); MEAN CORPUSCULAR HGB CONC 30.4 g/dl (32.0-36.5); MEAN CORPUSCULAR VOLUME 97.6 fl (80.0-96.0); MONO # 0.6 10^3/uL (0.0-0.8); MONO % 11.6 % (0.0-5.0); NEUTROPHILS # 3.3 10^3/uL (1.5-8.5); NEUTROPHILS % 68.8 % (36.0-66.0); PLATELET COUNT, AUTOMATED 277 10^3/uL (150-450); RED BLOOD COUNT 3.77 10^6/uL (4.00-5.40); WHITE BLOOD COUNT 4.8 10^3/uL (4.0-10.0)
[2019-10-20 09:56] LABS: ANTI DS-DNA AB SEE SEPARATE REPORT
[2019-10-26 10:34] LABS: ALBUMIN 3.1 GM/DL (3.2-5.2); BILIRUBIN,TOTAL 0.1 MG/DL (0.2-1.0); C REACTIVE PROTEIN QUANTITATIV 14.5 MG/DL (0.00-0.30); CALCIUM LEVEL 9.5 MG/DL (8.8-10.2); CREATININE FOR GFR 1.04 MG/DL (0.55-1.30); CREATININE,RANDOM URINE 52.3 MG/DL; GLOMERULAR FILTRATION RATE 54.1 (>32); POTASSIUM SERUM 4.4 MEQ/L (3.5-5.1); TOTAL PROTEIN 8.3 GM/DL (6.4-8.2); TOTAL PROTEIN,RANDOM URINE 17.5 MG/DL (0.0-12.0)
== END ==
LOC: M LABDRWAD 16:38
PROVIDERS: ATTEND Internal Medicine
DX: M32.14 Glomerular disease in systemic lupus erythematosus (principal)

== ENCOUNTER → 2019-10-24 | Outpatient (REF) | payer MEDICARE | LOC: M LABDRWAD 16:35 | PROVIDERS: ATTEND Nurse Practitioner Family | DX: E83.52 Hypercalcemia (principal) ==

== ENCOUNTER → 2019-10-24 | Outpatient (REF) | payer MEDICARE | LOC: M LABDRWAD 16:36 | PROVIDERS: ATTEND Internal Medicine Rheumatology | DX: M35.3 Polymyalgia rheumatica (principal); E83.52 Hypercalcemia ==

== ENCOUNTER → 2019-12-20 | Outpatient (REF) | payer MEDICARE ==
[2019-12-20 17:25] LABS: BASO % 0.2 % (0.0-1.0); HEMOGLOBIN 10.3 g/dl (12.0-15.5); LYMPH # 0.6 10^3/uL (1.5-5.0); LYMPH % 11.1 % (24.0-44.0); MEAN CORPUSCULAR HEMOGLOBIN 31.5 pg (27.0-33.0); MEAN CORPUSCULAR HGB CONC 31.2 g/dl (32.0-36.5); MEAN CORPUSCULAR VOLUME 100.9 fl (80.0-96.0); MONO # 0.7 10^3/uL (0.0-0.8); NEUTROPHILS # 4.3 10^3/uL (1.5-8.5); PLATELET COUNT, AUTOMATED 252 10^3/uL (150-450); RED BLOOD COUNT 3.27 10^6/uL (4.00-5.40); WHITE BLOOD COUNT 5.7 10^3/uL (4.0-10.0)
[2019-12-20 17:44] LABS: CREATININE,RANDOM URINE 31.3 MG/DL; TOTAL PROTEIN,RANDOM URINE 15.1 MG/DL (0.0-12.0)
[2019-12-20 17:51] LABS: ALBUMIN 3.1 GM/DL (3.2-5.2); BILIRUBIN,TOTAL 0.3 MG/DL (0.2-1.0); C REACTIVE PROTEIN QUANTITATIV 18.5 MG/DL (0.00-0.30); CALCIUM LEVEL 9.7 MG/DL (8.8-10.2); CREATININE FOR GFR 1.07 MG/DL (0.55-1.30); GLOMERULAR FILTRATION RATE 52.4 (>32); POTASSIUM SERUM 4.3 MEQ/L (3.5-5.1); TOTAL PROTEIN 7.1 GM/DL (6.4-8.2)
[2019-12-20 18:50] LABS: ERYTHROCYTE SEDIMENTATION RATE 93 mm/hr (0-30)
[2019-12-23 15:07] LABS: ANTI DS-DNA AB Positive (Negative)
== END ==
LOC: M SFHCADAM 11:06
PROVIDERS: ATTEND Internal Medicine
DX: M32.14 Glomerular disease in systemic lupus erythematosus (principal)

== ENCOUNTER → 2020-03-19 | Outpatient (REF) | payer MEDICARE ==
[2020-03-19 13:02] LABS: BASO % 0.2 % (0.0-1.0); HEMATOCRIT 35.2 % (36.0-47.0); HEMOGLOBIN 10.7 g/dl (12.0-15.5); LYMPH # 0.6 10^3/uL (1.5-5.0); LYMPH % 10.6 % (24.0-44.0); MEAN CORPUSCULAR HEMOGLOBIN 29.4 pg (27.0-33.0); MEAN CORPUSCULAR HGB CONC 30.4 g/dl (32.0-36.5); MEAN CORPUSCULAR VOLUME 96.7 fl (80.0-96.0); MONO # 0.5 10^3/uL (0.0-0.8); MONO % 9.4 % (0.0-5.0); NEUTROPHILS # 4.4 10^3/uL (1.5-8.5); NEUTROPHILS % 79.3 % (36.0-66.0); PLATELET COUNT, AUTOMATED 261 10^3/uL (150-450); RED BLOOD COUNT 3.64 10^6/uL (4.00-5.40); WHITE BLOOD COUNT 5.6 10^3/uL (4.0-10.0)
[2020-03-19 14:21] LABS: ERYTHROCYTE SEDIMENTATION RATE 77 mm/hr (0-30)
[2020-03-19 14:31] LABS: CREATININE,RANDOM URINE < 13.0 MG/DL; TOTAL PROTEIN,RANDOM URINE 8.6 MG/DL (0.0-12.0)
[2020-03-19 14:36] LABS: ALBUMIN 2.9 GM/DL (3.2-5.2); BILIRUBIN,TOTAL 0.2 MG/DL (0.2-1.0); CALCIUM LEVEL 9.6 MG/DL (8.8-10.2); CREATININE FOR GFR 1.05 MG/DL (0.55-1.30); GLOMERULAR FILTRATION RATE 53.4 (>32); POTASSIUM SERUM 4.2 MEQ/L (3.5-5.1); TOTAL PROTEIN 7.6 GM/DL (6.4-8.2)
[2020-03-19 14:37] LABS: C REACTIVE PROTEIN QUANTITATIV 19.4 MG/DL (0.00-0.30)
[2020-03-21 15:10] LABS: ANTI DS-DNA AB Positive (Negative)
== END ==
LOC: M SFHCADAM 11:01
PROVIDERS: ATTEND Internal Medicine
DX: M32.14 Glomerular disease in systemic lupus erythematosus (principal)

== ENCOUNTER → 2020-08-03 | Outpatient (CLI) | payer MEDICARE | LOC: M WHC 10:49 | PROVIDERS: ATTEND Nurse Practitioner Family | DX: Z12.31 Encounter for screening mammogram for malignant neoplasm of breast (principal); Z53.9 Procedure and treatment not carried out, unspecified reason ==

== ENCOUNTER → 2020-09-05 | Outpatient (REF) | payer MEDICARE ==
[2020-09-05 12:38] LABS: BASO % 0.2 % (0.0-1.0); HEMOGLOBIN 10.1 g/dl (12.0-15.5); LYMPH # 0.6 10^3/uL (1.5-5.0); MEAN CORPUSCULAR HEMOGLOBIN 28.9 pg (27.0-33.0); MEAN CORPUSCULAR HGB CONC 29.7 g/dl (32.0-36.5); MEAN CORPUSCULAR VOLUME 97.4 fl (80.0-96.0); MONO # 0.5 10^3/uL (0.0-0.8); NEUTROPHILS # 5.4 10^3/uL (1.5-8.5); NEUTROPHILS % 83.3 % (36.0-66.0); PLATELET COUNT, AUTOMATED 261 10^3/uL (150-450); RED BLOOD COUNT 3.49 10^6/uL (4.00-5.40); WHITE BLOOD COUNT 6.4 10^3/uL (4.0-10.0)
[2020-09-05 13:02] LABS: CREATININE,RANDOM URINE 34.2 MG/DL; TOTAL PROTEIN,RANDOM URINE 11.2 MG/DL (0.0-12.0)
[2020-09-05 13:23] LABS: ALBUMIN 2.9 GM/DL (3.2-5.2); BILIRUBIN,TOTAL 0.2 MG/DL (0.2-1.0); C REACTIVE PROTEIN QUANTITATIV 16.1 MG/DL (0.00-0.30); CALCIUM LEVEL 9.7 MG/DL (8.8-10.2); CREATININE FOR GFR 1.06 MG/DL (0.55-1.30); GLOMERULAR FILTRATION RATE 52.8 (>32); POTASSIUM SERUM 4.4 MEQ/L (3.5-5.1); TOTAL PROTEIN 7.5 GM/DL (6.4-8.2)
[2020-09-05 13:27] LABS: ERYTHROCYTE SEDIMENTATION RATE 106 mm/hr (0-30)
== END ==
LOC: M SFHCRHEU 10:26 → M SFHCADAM 10:27
PROVIDERS: ATTEND Internal Medicine Rheumatology
DX: M32.14 Glomerular disease in systemic lupus erythematosus (principal)

== ENCOUNTER 2020-10-03 11:14 | Emergency (ER) | payer MEDICARE ==
[~2020-10-03] VITALS: Ht 162.6 cm; Wt 52.3 kg
[2020-10-03 11:14] VITALS: BP 139/80
[2020-10-03] MEDS ORDERED: PHEN100C (11:36)
[2020-10-03] MEDS ORDERED: HYDR200T3 (11:36)
--- NOTE | 2020-10-03 13:12 | REP ---
INDICATION: cody hematuria COMPARISON: None TECHNIQUE: Axial noncontrast images from the lung bases to the pubic symphysis with coronal and sagittal reformations. This CT examination was performed using the following dose reduction techniques: Automated exposure control, adjustment of mA and/or kv according to the patient's size, and use of iterative reconstruction technique. FINDINGS: Lung bases are clear. Visualized heart and pericardium normal. Liver, spleen, pancreas, gallbladder, and bilateral adrenal glands are normal for noncontrast evaluation. Kidneys demonstrate age-related changes along with 2 mm nonobstructing right renal calculus and no evidence for perinephric stranding or hydroureteronephrosis. The enteric system is grossly unremarkable and without evidence for obstruction or acute inflammatory process. Moderate fecal stasis is suggested. Colonic and sigmoid diverticula noted without acute diverticulitis. Pelvis demonstrates distended bladder without wall thickening, perivesicular inflammatory stranding, or obvious intrinsic abnormality. Evidence for prior hysterectomy. No ascites. No free air. No adenopathy. No focal inflammatory stranding. Atherosclerotic changes to the aorta and branch vessels noted without aneurysm. Musculoskeletal structures demonstrate degenerative changes without acute process. IMPRESSION: 1. 2 mm nonobstructing right renal calculus. No further renal abnormality identified. 2. Moderate urinary bladder distention without further abnormality. 3. Nonacute findings as noted above. <Electronically signed by Guero Cornejo > 10/03/20 [id number]
[2020-10-03 14:15] LABS: BASO % 0.2 % (0.0-1.0); HEMATOCRIT 33.6 % (36.0-47.0); HEMOGLOBIN 10.2 g/dl (12.0-15.5); LYMPH # 0.8 10^3/uL (1.5-5.0); LYMPH % 12.9 % (24.0-44.0); MEAN CORPUSCULAR HEMOGLOBIN 28.9 pg (27.0-33.0); MEAN CORPUSCULAR HGB CONC 30.4 g/dl (32.0-36.5); MEAN CORPUSCULAR VOLUME 95.2 fl (80.0-96.0); MONO # 0.5 10^3/uL (0.0-0.8); MONO % 8.4 % (2.0-8.0); NEUTROPHILS # 4.7 10^3/uL (1.5-8.5); PLATELET COUNT, AUTOMATED 228 10^3/uL (150-450); RED BLOOD COUNT 3.53 10^6/uL (4.00-5.40); WHITE BLOOD COUNT 6.1 10^3/uL (4.0-10.0)
[2020-10-03 14:40] LABS: CALCIUM LEVEL 9.7 MG/DL (8.8-10.2); CREATININE FOR GFR 0.96 MG/DL (0.55-1.30); GLOMERULAR FILTRATION RATE 59.2 (>32); POTASSIUM SERUM 4.2 MEQ/L (3.5-5.1)
== END 2020-10-03 16:38 | disposition left against medical advice (07) ==
LOC: M ED 11:14
DX: R33.9 Retention of urine, unspecified (principal); R31.9 Hematuria, unspecified; Z53.9 Procedure and treatment not carried out, unspecified reason; N20.0 Calculus of kidney; I10 Essential (primary) hypertension; E03.9 Hypothyroidism, unspecified; G40.909 Epilepsy, unspecified, not intractable, without status epilepticus; M06.9 Rheumatoid arthritis, unspecified; Z79.899 Other long term (current) drug therapy; Z88.2 Allergy status to sulfonamides

== ENCOUNTER → 2020-10-09 | Outpatient (REF) | payer MEDICARE ==
[~2020-10-09] MED LIST changes: +HYDR200T3; +PHEN100C
[2020-10-09 14:33] LABS: HEMOGLOBIN A1c 5.5 %
== END ==
LOC: M LABDRWAD 12:32
PROVIDERS: ATTEND Family Medicine
DX: R73.01 Impaired fasting glucose (principal)

== ENCOUNTER → 2020-10-18 | Outpatient (CLI) | payer MEDICARE ==
--- NOTE | 2020-10-18 15:45 | REPMRS ---
Patient History The patient states she has not had a clinical breast exam in over a year. Patient is postmenopausal. Family history of breast cancer in niece, breast cancer in niece. Patient states no breast complaints today. Patient has signed MRS History Sheet. Digital Woman Screen Mammo: October 18, 2020 - Exam #: [id number] Bilateral CC and MLO view(s) were taken. Technologist: Jodee Brock Technologist Prior study comparison: September 01, 2019, bilateral digital mammo screening bilat, performed at [facility]. May 28, 2018, bilateral digital mammo screening bilat, performed at [facility]. June 12, 2015, bilateral digital mammo screening bilat, performed at [facility]. FINDINGS: The breast tissue is extremely dense which could obscure a lesion on mammography. Screening. Digital screening (2D) mammography was performed bilaterally in the CC and MLO projections. Additionally, breast tomosynthesis (3D mammography) was performed bilaterally in the CC and MLO projections. Todays exam was compared to the prior exam/exams. By history, the patient has no complaints of a palpable breast abnormality or other significant breast complaints. The breasts are unchanged in size and shape.Once again, dense heterogenous fibroglandular elements are seen bilaterally in a stable appearing pattern but to such a degree that the sensitivity of the mammogram in detecting cancer is decreased. There are no britt-soft tissue densities or spiculated masses. There is no internal architectural distortion. Once again, stable benign appearing calcifications are seen.There are no suspicious britt-calcific clusters. Skin thickening or nipple retraction is not present. IMPRESSION: BI-RADS Category 2- Benign Findings. There is no evidence of malignant alteration of the breasts. Followup examination recommended in one year. The [place] volumetric breast density category is D, the breasts are extremely dense which lowers the sensitivity of mammography. This mammogram was read with the assistance of [employer],an FDA approved computer aided detection system for mammography. The lifetime Tyrer-Cuzick score is 0,7 % Due to the density of the breasts or Tyrer Cuzick score of 20% or greater, MRI/whole breast screening ultrasound is warranted. Negative x-ray reports should not delay surgical consultation if a dominant or clinically suspicious mass is present. Not all breast cancers can be identified by mammography. Therefore, we recommend that you continue to perform regular breast self-examination and physical examination and then promptly contact your physician of any concerns or changes. Adenosis and dense breasts may obscure an underlying neoplasm. Assessment: BI-RADS/ACR category 2 mammogram. Benign Findings. Recommendation Routine screening mammogram of both breasts in 1 year. Electronically Signed By: Amando Gordon DO 10/18/20 [id number]
== END ==
LOC: M WHC 14:20
PROVIDERS: ATTEND Nurse Practitioner Family
DX: Z12.31 Encounter for screening mammogram for malignant neoplasm of breast (principal); Z80.3 Family history of malignant neoplasm of breast; R92.1 Mammographic calcification found on diagnostic imaging of breast

== ENCOUNTER → 2020-12-24 | Outpatient (REF) | payer MEDICARE ==
[2020-12-24 13:33] LABS: APPEARANCE, URINE HAZY (CLEAR); BACTERIA, URINE AUTO NEGATIVE (NEGATIVE); BILIRUBIN, URINE AUTO NEGATIVE (NEGATIVE); BLOOD, URINE BLOOD NEGATIVE (NEGATIVE); COLOR, URINE YELLOW (YELLOW); GLUCOSE, URINE (UA) AUTO NEGATIVE (NEGATIVE); KETONE, URINE AUTO NEGATIVE (NEGATIVE); LEUKOCYTE ESTERASE, URINE AUTO 3+ (NEGATIVE); MUCUS, URINE SMALL (NEGATIVE); NITRITE, URINE AUTO NEGATIVE (NEGATIVE); PROTEIN, URINE AUTO NEGATIVE (NEGATIVE); RBC, URINE AUTO 0 /HPF (0-3); SPECIFIC GRAVITY URINE AUTO 1.013 (1.002-1.035); SQUAMOUS EPITHELIAL CELL UR AU 5 /HPF (0-6); UROBILINOGEN, URINE AUTO 0.2 mg/dL (0.0-2.0); WBC, URINE AUTO 3 /HPF (0-3)
[2020-12-24 13:38] LABS: BASO % 0.3 % (0.0-1.0); EOS % 0.1 % (0.0-3.0); HEMATOCRIT 33.3 % (36.0-47.0); LYMPH # 0.8 10^3/uL (1.5-5.0); LYMPH % 11.1 % (24.0-44.0); MEAN CORPUSCULAR HEMOGLOBIN 28.7 pg (27.0-33.0); MEAN CORPUSCULAR VOLUME 95.4 fl (80.0-96.0); MONO # 0.7 10^3/uL (0.0-0.8); MONO % 10.2 % (2.0-8.0); NEUTROPHILS # 5.6 10^3/uL (1.5-8.5); NEUTROPHILS % 77.6 % (36.0-66.0); PLATELET COUNT, AUTOMATED 278 10^3/uL (150-450); RED BLOOD COUNT 3.49 10^6/uL (4.00-5.40); WHITE BLOOD COUNT 7.3 10^3/uL (4.0-10.0)
[2020-12-24 14:02] LABS: ERYTHROCYTE SEDIMENTATION RATE 109 mm/hr (0-30)
[2020-12-24 14:10] LABS: ALBUMIN 2.7 GM/DL (3.2-5.2); BILIRUBIN,TOTAL 0.3 MG/DL (0.2-1.0); C REACTIVE PROTEIN QUANTITATIV 14.4 MG/DL (0.00-0.30); CALCIUM LEVEL 9.4 MG/DL (8.8-10.2); CREATININE FOR GFR 1.1 MG/DL (0.55-1.30); GLOMERULAR FILTRATION RATE 50.6 (>32); POTASSIUM SERUM 4.7 MEQ/L (3.5-5.1); TOTAL PROTEIN 7.9 GM/DL (6.4-8.2)
[2020-12-24 14:24] LABS: CREATININE,RANDOM URINE 65.8 MG/DL; TOTAL PROTEIN,RANDOM URINE 18.4 MG/DL (0.0-12.0)
[2020-12-26 15:09] LABS: ANTI DS-DNA AB Positive (Negative)
== END ==
LOC: M SFHCRHEU 11:41 → M SFHCADAM 11:42
PROVIDERS: ATTEND Internal Medicine Rheumatology
DX: M32.14 Glomerular disease in systemic lupus erythematosus (principal); M06.09 Rheumatoid arthritis without rheumatoid factor, multiple sites; K75.4 Autoimmune hepatitis; Z79.899 Other long term (current) drug therapy

== ENCOUNTER 2021-04-03 12:24 | Inpatient (IN) | payer MEDICARE ==
[~2021-04-03] VITALS: Ht 157.5 cm; Wt 47.0 kg
[~2021-04-03 12:24] MED LIST changes: -HYDR200T3; +HYDR200T3 PO; -PHEN100C; +PHEN100C PO
[2021-04-03] MEDS ORDERED: VALA1TAB5 PO (12:57)
[2021-04-03] MEDS ORDERED: TRAM50TA2 PO (12:57)
[2021-04-03 14:40] LABS: HEMATOCRIT 33.6 % (36.0-47.0); HEMOGLOBIN 10.8 g/dl (12.0-15.5); MEAN CORPUSCULAR HGB CONC 32.1 g/dl (32.0-36.5); MEAN CORPUSCULAR VOLUME 93.3 fl (80.0-96.0); WHITE BLOOD COUNT 2.1 10^3/uL (4.0-10.0)
[2021-04-03 14:52] LABS: INR 1.19; PROTHROMBIN TIME 15.5 SECONDS (12.7-14.5)
[2021-04-03 14:53] LABS: PARTIAL THROMBOPLASTIN TIME 38.6 SECONDS (25.9-37.0)
[2021-04-03 14:59] LABS: PLATELET COUNT, AUTOMATED 99 10^3/uL (150-450)
[2021-04-03 15:01] LABS: ERYTHROCYTE SEDIMENTATION RATE 49 mm/hr (0-30); MB/CK RELATIVE INDEX 3.03 (< OR =4)
[2021-04-03 15:05] LABS: ATYPICAL LYMPH 3 % (0-5); EOSINOPHILS 1 % (0-3); LYMPHOCYTES 18 % (16-44); METAMYELOCYTES 2 % (0-0); MONOCYTES 7 % (0-5); MYELOCYTES 3 % (0-0); NEUTROPHILS 58 % (28-66)
[2021-04-03 15:06] LABS: OVALOCYTES 2+; PLATELET ESTIMATE DECREASED (NORMAL); TEAR DROP CELLS 1+
[2021-04-03 15:08] LABS: ALBUMIN 2.8 GM/DL (3.2-5.2); BILIRUBIN,DIRECT 0.1 MG/DL (0.0-0.2); BILIRUBIN,TOTAL 0.4 MG/DL (0.2-1.0); C REACTIVE PROTEIN QUANTITATIV 12.6 MG/DL (0.00-0.30); CALCIUM LEVEL 8.6 MG/DL (8.8-10.2); CREATININE FOR GFR 1.73 MG/DL (0.55-1.30); FREE T4 1.06 NG/DL (0.76-1.46); GLOMERULAR FILTRATION RATE 29.9 (>32); POTASSIUM SERUM 4.5 MEQ/L (3.5-5.1); THYROID STIMULATING HORMONE 2.04 uIU/ML (0.358-3.740)
[2021-04-03] MEDS ORDERED: ACET500T15 PO (17:51)
[2021-04-03] MEDS ORDERED: LEVO50TA5 PO (17:51)
[2021-04-03] MEDS ORDERED: PYRI25TA2 PO (17:51)
[2021-04-03] MEDS ORDERED: RA N1TAB PO (17:51)
[2021-04-03] MEDS ORDERED: THIA100T7 PO (17:51)
[2021-04-03] MEDS ORDERED: GLUCTAB6 PO (17:51)
[2021-04-03] MEDS ORDERED: PRED10TA2 PO (17:51)
[2021-04-03] MEDS ORDERED: HOME MED LIST COMPLETE! XX SCH (17:55)
[2021-04-03] MEDS ORDERED: MAGNESIUM OXIDE 400MG TAB (MAG-OX) PO ONE (18:45)
[2021-04-03] MEDS ORDERED: PILL CUTTER 1 EACH XX PRN (18:50)
[2021-04-03] MEDS: PERCOCET 5MG/325MG TAB PO PRN (19:41)
[2021-04-03] MEDS: NS 1,000 ML IV SCH (19:42)
[2021-04-03 21:00] VITALS: BP 123/68
[2021-04-03] MEDS: ACETAMINOPHEN TAB 650MG DOSE (2X325MG) PO PRN (22:35)
[2021-04-03] MEDS: HEPARIN SOD (PORCINE) 5000UNITS/ML 1ML VIAL/SYRINGE SQ SCH (22:35)
[2021-04-03] MEDS: busPIRone 5 MG TAB PO SCH (22:36)
[2021-04-03] MEDS: atenoloL 25 MG TAB PO SCH (22:36)
[2021-04-03] MEDS: ACYCLOVIR 500 MG in D5W MINI-BAG PLUS 100 ML IV SCH (22:37)
[2021-04-03] MEDS: PHENYTOIN ER 100 MG CAP PO SCH (23:23)
[2021-04-04] MEDS: PERCOCET 5MG/325MG TAB PO PRN ×2 (04:02→22:44)
[2021-04-04 06:00] VITALS: BP 120/69
[2021-04-04 06:00] LABS: HEMATOCRIT 32.4 % (36.0-47.0); HEMOGLOBIN 10.1 g/dl (12.0-15.5); MEAN CORPUSCULAR HEMOGLOBIN 29.5 pg (27.0-33.0); MEAN CORPUSCULAR HGB CONC 31.2 g/dl (32.0-36.5); MEAN CORPUSCULAR VOLUME 94.7 fl (80.0-96.0); RED BLOOD COUNT 3.42 10^6/uL (4.00-5.40); WHITE BLOOD COUNT 2.4 10^3/uL (4.0-10.0)
[2021-04-04 06:03] LABS: PLATELET COUNT, AUTOMATED 93 10^3/uL (150-450)
[2021-04-04] MEDS: LEVOTHYROXINE 50MCG TABLET (0.05MG) PO SCH (06:14)
[2021-04-04 06:28] LABS: ALBUMIN 2.6 GM/DL (3.2-5.2); BILIRUBIN,TOTAL 0.3 MG/DL (0.2-1.0); CALCIUM LEVEL 8.1 MG/DL (8.8-10.2); CREATININE FOR GFR 1.35 MG/DL (0.55-1.30); GLOMERULAR FILTRATION RATE 39.9 (>32); POTASSIUM SERUM 4.3 MEQ/L (3.5-5.1); TOTAL PROTEIN 6.5 GM/DL (6.4-8.2)
[2021-04-04] MEDS: HEPARIN SOD (PORCINE) 5000UNITS/ML 1ML VIAL/SYRINGE SQ SCH ×2 (09:00→22:43)
[2021-04-04] MEDS: NS 1,000 ML IV SCH ×2 (10:07→22:38)
[2021-04-04] MEDS: predniSONE 10 MG TAB PO SCH (10:08)
[2021-04-04] MEDS: PHENYTOIN ER 100 MG CAP PO SCH ×3 (10:08→22:45)
[2021-04-04] MEDS: THIAMINE 100 MG TAB PO SCH (10:08)
[2021-04-04] MEDS: FUROSEMIDE 40 MG TAB PO SCH (10:08)
[2021-04-04 14:00] VITALS: BP 99/63
[2021-04-04] MEDS: PYRIDOXINE 50 MG TAB PO SCH (14:30)
[2021-04-04] MEDS: ACETAMINOPHEN TAB 650MG DOSE (2X325MG) PO PRN ×2 (14:30→22:45)
[2021-04-04 22:00] VITALS: BP 115/77
[2021-04-04] MEDS: ACYCLOVIR 500 MG in D5W MINI-BAG PLUS 100 ML IV SCH (22:38)
[2021-04-04] MEDS: busPIRone 5 MG TAB PO SCH (22:44)
[2021-04-04] MEDS: atenoloL 25 MG TAB PO SCH (22:45)
[2021-04-05] MEDS ORDERED: diphenhydrAMINE 50MG/ML VIAL (J1200) IV ONE (02:00)
[2021-04-05] MEDS: LEVOTHYROXINE 50MCG TABLET (0.05MG) PO SCH (05:40)
[2021-04-05 06:00] VITALS: BP 119/52
[2021-04-05 09:08] LABS: HEMATOCRIT 29.7 % (36.0-47.0); HEMOGLOBIN 9.4 g/dl (12.0-15.5); MEAN CORPUSCULAR HGB CONC 31.6 g/dl (32.0-36.5); MEAN CORPUSCULAR VOLUME 94.9 fl (80.0-96.0); PLATELET COUNT, AUTOMATED 93 10^3/uL (150-450); RED BLOOD COUNT 3.13 10^6/uL (4.00-5.40)
[2021-04-05] MEDS: HEPARIN SOD (PORCINE) 5000UNITS/ML 1ML VIAL/SYRINGE SQ SCH ×2 (09:28→21:52)
[2021-04-05] MEDS: HYDROXYCHLOROQUINE 200 MG TAB PO SCH (09:28)
[2021-04-05] MEDS: PYRIDOXINE 50 MG TAB PO SCH (09:29)
[2021-04-05] MEDS: PHENYTOIN ER 100 MG CAP PO SCH ×3 (09:29→21:52)
[2021-04-05] MEDS: THIAMINE 100 MG TAB PO SCH (09:29)
[2021-04-05] MEDS: SPIRONOLACTONE 25 MG TAB PO SCH (09:29)
[2021-04-05] MEDS: predniSONE 10 MG TAB PO SCH (09:30)
[2021-04-05] MEDS: FUROSEMIDE 40 MG TAB PO SCH (09:30)
[2021-04-05 09:43] LABS: ALBUMIN 2.4 GM/DL (3.2-5.2); BILIRUBIN,TOTAL 0.2 MG/DL (0.2-1.0); CALCIUM LEVEL 7.9 MG/DL (8.8-10.2); CREATININE FOR GFR 1.03 MG/DL (0.55-1.30); GLOMERULAR FILTRATION RATE 54.5 (>32); POTASSIUM SERUM 4.4 MEQ/L (3.5-5.1); TOTAL PROTEIN 6.2 GM/DL (6.4-8.2)
[2021-04-05] MEDS: NS 1,000 ML IV SCH ×2 (12:57→21:56)
[2021-04-05] MEDS: PERCOCET 5MG/325MG TAB PO PRN ×2 (13:19→21:55)
[2021-04-05 13:48] VITALS: BP 101/59
[2021-04-05] MEDS: ACYCLOVIR 500 MG in D5W MINI-BAG PLUS 100 ML IV SCH (16:34)
[2021-04-05] MEDS: atenoloL 25 MG TAB PO SCH (21:00)
[2021-04-05] MEDS: busPIRone 5 MG TAB PO SCH (21:54)
[2021-04-05 22:00] VITALS: BP 108/61
[2021-04-06] MEDS: ACYCLOVIR 500 MG in D5W MINI-BAG PLUS 100 ML IV SCH ×2 (04:08→15:04)
[2021-04-06] MEDS: ACETAMINOPHEN TAB 650MG DOSE (2X325MG) PO PRN ×3 (04:08→23:50)
[2021-04-06] MEDS: LEVOTHYROXINE 50MCG TABLET (0.05MG) PO SCH (04:09)
[2021-04-06 06:00] VITALS: BP 133/66
[2021-04-06 06:24] LABS: HEMATOCRIT 28.8 % (36.0-47.0); HEMOGLOBIN 9.1 g/dl (12.0-15.5); MEAN CORPUSCULAR HEMOGLOBIN 30.1 pg (27.0-33.0); MEAN CORPUSCULAR HGB CONC 31.6 g/dl (32.0-36.5); MEAN CORPUSCULAR VOLUME 95.4 fl (80.0-96.0); PLATELET COUNT, AUTOMATED 117 10^3/uL (150-450); RED BLOOD COUNT 3.02 10^6/uL (4.00-5.40); WHITE BLOOD COUNT 4.2 10^3/uL (4.0-10.0)
[2021-04-06 06:54] LABS: ALBUMIN 2.3 GM/DL (3.2-5.2); BILIRUBIN,TOTAL 0.2 MG/DL (0.2-1.0); CALCIUM LEVEL 7.6 MG/DL (8.8-10.2); CREATININE FOR GFR 0.98 MG/DL (0.55-1.30); GLOMERULAR FILTRATION RATE 57.7 (>32); POTASSIUM SERUM 4.1 MEQ/L (3.5-5.1)
[2021-04-06] MEDS: HEPARIN SOD (PORCINE) 5000UNITS/ML 1ML VIAL/SYRINGE SQ SCH ×2 (09:47→20:14)
[2021-04-06] MEDS: PHENYTOIN ER 100 MG CAP PO SCH ×3 (09:48→20:04)
[2021-04-06] MEDS: PYRIDOXINE 50 MG TAB PO SCH (09:48)
[2021-04-06] MEDS: HYDROXYCHLOROQUINE 200 MG TAB PO SCH (09:48)
[2021-04-06] MEDS: FUROSEMIDE 40 MG TAB PO SCH (09:49)
[2021-04-06] MEDS: SPIRONOLACTONE 25 MG TAB PO SCH (09:50)
[2021-04-06] MEDS: predniSONE 10 MG TAB PO SCH (09:50)
[2021-04-06] MEDS: THIAMINE 100 MG TAB PO SCH (09:50)
[2021-04-06 14:00] VITALS: BP 124/65
[2021-04-06] MEDS: PERCOCET 5MG/325MG TAB PO PRN ×2 (17:46→20:07)
[2021-04-06] MEDS: atenoloL 25 MG TAB PO SCH (20:05)
[2021-04-06] MEDS: busPIRone 5 MG TAB PO SCH (20:06)
[2021-04-06 22:00] VITALS: BP 123/65
[2021-04-07] MEDS: PERCOCET 5MG/325MG TAB PO PRN ×2 (02:06→21:09)
[2021-04-07] MEDS: ACYCLOVIR 500 MG in D5W MINI-BAG PLUS 100 ML IV SCH ×2 (03:28→16:13)
[2021-04-07] MEDS: LEVOTHYROXINE 50MCG TABLET (0.05MG) PO SCH (05:17)
[2021-04-07 06:00] VITALS: BP 121/65
[2021-04-07 07:04] LABS: HEMATOCRIT 28.5 % (36.0-47.0); HEMOGLOBIN 8.9 g/dl (12.0-15.5); MEAN CORPUSCULAR HEMOGLOBIN 29.8 pg (27.0-33.0); MEAN CORPUSCULAR HGB CONC 31.2 g/dl (32.0-36.5); MEAN CORPUSCULAR VOLUME 95.3 fl (80.0-96.0); PLATELET COUNT, AUTOMATED 107 10^3/uL (150-450); RED BLOOD COUNT 2.99 10^6/uL (4.00-5.40); WHITE BLOOD COUNT 4.3 10^3/uL (4.0-10.0)
[2021-04-07 07:29] LABS: ALBUMIN 2.3 GM/DL (3.2-5.2); BILIRUBIN,TOTAL 0.2 MG/DL (0.2-1.0); CALCIUM LEVEL 8.1 MG/DL (8.8-10.2); CREATININE FOR GFR 0.99 MG/DL (0.55-1.30); POTASSIUM SERUM 3.9 MEQ/L (3.5-5.1); TOTAL PROTEIN 6.3 GM/DL (6.4-8.2)
[2021-04-07] MEDS: HEPARIN SOD (PORCINE) 5000UNITS/ML 1ML VIAL/SYRINGE SQ SCH ×2 (09:25→21:08)
[2021-04-07] MEDS: PHENYTOIN ER 100 MG CAP PO SCH ×3 (09:25→21:08)
[2021-04-07] MEDS: predniSONE 10 MG TAB PO SCH (09:26)
[2021-04-07] MEDS: THIAMINE 100 MG TAB PO SCH (09:26)
[2021-04-07] MEDS: FUROSEMIDE 40 MG TAB PO SCH (09:26)
[2021-04-07] MEDS: HYDROXYCHLOROQUINE 200 MG TAB PO SCH (09:26)
[2021-04-07] MEDS: PYRIDOXINE 50 MG TAB PO SCH (09:27)
[2021-04-07] MEDS: SPIRONOLACTONE 25 MG TAB PO SCH (09:27)
[2021-04-07] MEDS: ACETAMINOPHEN TAB 650MG DOSE (2X325MG) PO PRN (09:31)
[2021-04-07 14:00] VITALS: BP 120/64
[2021-04-07] MEDS: busPIRone 5 MG TAB PO SCH (21:08)
[2021-04-07] MEDS: atenoloL 25 MG TAB PO SCH (21:08)
[2021-04-07 22:00] VITALS: BP 121/73
[2021-04-08] MEDS: ACYCLOVIR 500 MG in D5W MINI-BAG PLUS 100 ML IV SCH ×2 (03:48→16:55)
[2021-04-08] MEDS: PERCOCET 5MG/325MG TAB PO PRN ×2 (03:49→20:45)
[2021-04-08 06:00] VITALS: BP 104/61
[2021-04-08 06:09] LABS: HEMATOCRIT 29.7 % (36.0-47.0); HEMOGLOBIN 9.2 g/dl (12.0-15.5); MEAN CORPUSCULAR HEMOGLOBIN 29.6 pg (27.0-33.0); MEAN CORPUSCULAR VOLUME 95.5 fl (80.0-96.0); PLATELET COUNT, AUTOMATED 144 10^3/uL (150-450); RED BLOOD COUNT 3.11 10^6/uL (4.00-5.40); WHITE BLOOD COUNT 5.3 10^3/uL (4.0-10.0)
[2021-04-08] MEDS: LEVOTHYROXINE 50MCG TABLET (0.05MG) PO SCH (06:29)
[2021-04-08 06:40] LABS: ALBUMIN 2.3 GM/DL (3.2-5.2); BILIRUBIN,TOTAL 0.2 MG/DL (0.2-1.0); CALCIUM LEVEL 7.9 MG/DL (8.8-10.2); CREATININE FOR GFR 0.96 MG/DL (0.55-1.30); GLOMERULAR FILTRATION RATE 59.1 (>32); POTASSIUM SERUM 4.1 MEQ/L (3.5-5.1); TOTAL PROTEIN 6.2 GM/DL (6.4-8.2)
[2021-04-08] MEDS: PHENYTOIN ER 100 MG CAP PO SCH ×3 (10:30→20:44)
[2021-04-08] MEDS: PYRIDOXINE 50 MG TAB PO SCH (10:30)
[2021-04-08] MEDS: FUROSEMIDE 40 MG TAB PO SCH (10:30)
[2021-04-08] MEDS: THIAMINE 100 MG TAB PO SCH (10:30)
[2021-04-08] MEDS: HYDROXYCHLOROQUINE 200 MG TAB PO SCH (10:30)
[2021-04-08] MEDS: predniSONE 10 MG TAB PO SCH (10:31)
[2021-04-08] MEDS: SPIRONOLACTONE 25 MG TAB PO SCH (10:31)
[2021-04-08] MEDS: HEPARIN SOD (PORCINE) 5000UNITS/ML 1ML VIAL/SYRINGE SQ SCH ×2 (10:31→20:45)
[2021-04-08] MEDS: ACETAMINOPHEN TAB 650MG DOSE (2X325MG) PO PRN (10:41)
[2021-04-08 14:00] VITALS: BP 120/73
[2021-04-08] MEDS: atenoloL 25 MG TAB PO SCH (20:44)
[2021-04-08] MEDS: busPIRone 5 MG TAB PO SCH (20:45)
[2021-04-09] MEDS: ACYCLOVIR 500 MG in D5W MINI-BAG PLUS 100 ML IV SCH ×2 (03:34→16:10)
[2021-04-09] MEDS: LEVOTHYROXINE 50MCG TABLET (0.05MG) PO SCH (05:13)
[2021-04-09 06:00] VITALS: BP 127/77
[2021-04-09 06:23] LABS: HEMATOCRIT 30.4 % (36.0-47.0); HEMOGLOBIN 9.6 g/dl (12.0-15.5); MEAN CORPUSCULAR HEMOGLOBIN 29.5 pg (27.0-33.0); MEAN CORPUSCULAR HGB CONC 31.6 g/dl (32.0-36.5); MEAN CORPUSCULAR VOLUME 93.5 fl (80.0-96.0); PLATELET COUNT, AUTOMATED 175 10^3/uL (150-450); RED BLOOD COUNT 3.25 10^6/uL (4.00-5.40); WHITE BLOOD COUNT 6.3 10^3/uL (4.0-10.0)
[2021-04-09 06:44] LABS: BLOOD UREA NITROGEN 16 MG/DL (7-18); CALCIUM LEVEL 8.2 MG/DL (8.8-10.2); CARBON DIOXIDE LEVEL 29 MEQ/L (21-32); CHLORIDE LEVEL 107 MEQ/L (98-107); GLOMERULAR FILTRATION RATE > 60.0 (>32); GLUCOSE, FASTING 91 MG/DL (70-100); SODIUM LEVEL 139 MEQ/L (136-145)
[2021-04-09] MEDS: SPIRONOLACTONE 25 MG TAB PO SCH (09:01)
[2021-04-09] MEDS: PHENYTOIN ER 100 MG CAP PO SCH ×3 (09:01→21:45)
[2021-04-09] MEDS: HYDROXYCHLOROQUINE 200 MG TAB PO SCH (09:01)
[2021-04-09] MEDS: THIAMINE 100 MG TAB PO SCH (09:01)
[2021-04-09] MEDS: predniSONE 10 MG TAB PO SCH (09:02)
[2021-04-09] MEDS: FUROSEMIDE 40 MG TAB PO SCH (09:02)
[2021-04-09] MEDS: PYRIDOXINE 50 MG TAB PO SCH (09:02)
[2021-04-09] MEDS: ACETAMINOPHEN TAB 650MG DOSE (2X325MG) PO PRN (09:03)
[2021-04-09] MEDS: HEPARIN SOD (PORCINE) 5000UNITS/ML 1ML VIAL/SYRINGE SQ SCH ×2 (09:04→21:44)
[2021-04-09] MEDS: PERCOCET 5MG/325MG TAB PO PRN ×2 (12:06→21:48)
[2021-04-09 14:00] VITALS: BP 102/58
[2021-04-09] MEDS: busPIRone 5 MG TAB PO SCH (21:45)
[2021-04-09] MEDS: TAMSULOSIN 0.4 MG CAP PO SCH (21:45)
[2021-04-09] MEDS: atenoloL 25 MG TAB PO SCH (21:47)
[2021-04-09 22:00] VITALS: BP 120/75
[2021-04-10] MEDS: LEVOTHYROXINE 50MCG TABLET (0.05MG) PO SCH (05:03)
[2021-04-10] MEDS: PERCOCET 5MG/325MG TAB PO PRN ×3 (05:04→21:35)
[2021-04-10] MEDS: ACYCLOVIR 500 MG in D5W MINI-BAG PLUS 100 ML IV SCH (05:04)
[2021-04-10 06:00] VITALS: BP 117/74
[2021-04-10] MEDS: PYRIDOXINE 50 MG TAB PO SCH (08:28)
[2021-04-10] MEDS: TAMSULOSIN 0.4 MG CAP PO SCH ×2 (08:29→21:34)
[2021-04-10] MEDS: FUROSEMIDE 40 MG TAB PO SCH (08:29)
[2021-04-10] MEDS: PHENYTOIN ER 100 MG CAP PO SCH ×3 (08:29→21:33)
[2021-04-10] MEDS: MOM 30ML SUSPENSION UDC PO SCH (08:29)
[2021-04-10] MEDS: HYDROXYCHLOROQUINE 200 MG TAB PO SCH (08:30)
[2021-04-10] MEDS: SPIRONOLACTONE 25 MG TAB PO SCH (08:30)
[2021-04-10] MEDS: predniSONE 10 MG TAB PO SCH (08:30)
[2021-04-10] MEDS: THIAMINE 100 MG TAB PO SCH (08:30)
[2021-04-10] MEDS: HEPARIN SOD (PORCINE) 5000UNITS/ML 1ML VIAL/SYRINGE SQ SCH ×2 (08:32→21:33)
[2021-04-10] MEDS: ACETAMINOPHEN TAB 650MG DOSE (2X325MG) PO PRN ×2 (08:36→16:18)
[2021-04-10] MEDS ORDERED: GABAPENTIN 100 MG CAP PO SCH (21:00)
[2021-04-10] MEDS: valACYclovir HCL 500 MG TAB PO SCH (21:33)
[2021-04-10] MEDS: atenoloL 25 MG TAB PO SCH (21:34)
[2021-04-10] MEDS: busPIRone 5 MG TAB PO SCH (21:35)
[2021-04-10] MEDS: GABAPENTIN 100 MG CAP PO SCH (21:35)
[2021-04-10 22:00] VITALS: BP 111/67
[2021-04-11] MEDS: LEVOTHYROXINE 50MCG TABLET (0.05MG) PO SCH (05:37)
[2021-04-11] MEDS: PERCOCET 5MG/325MG TAB PO PRN ×3 (05:38→20:16)
[2021-04-11 06:00] VITALS: BP 93/61
[2021-04-11] MEDS: ACETAMINOPHEN TAB 650MG DOSE (2X325MG) PO PRN ×2 (09:58→17:56)
[2021-04-11] MEDS: PHENYTOIN ER 100 MG CAP PO SCH ×3 (09:59→20:15)
[2021-04-11] MEDS: valACYclovir HCL 500 MG TAB PO SCH ×2 (09:59→20:12)
[2021-04-11] MEDS: THIAMINE 100 MG TAB PO SCH (10:00)
[2021-04-11] MEDS: PYRIDOXINE 50 MG TAB PO SCH (10:00)
[2021-04-11] MEDS: predniSONE 10 MG TAB PO SCH (10:00)
[2021-04-11] MEDS: FUROSEMIDE 40 MG TAB PO SCH (10:00)
[2021-04-11] MEDS: HYDROXYCHLOROQUINE 200 MG TAB PO SCH (10:01)
[2021-04-11] MEDS: MOM 30ML SUSPENSION UDC PO SCH (10:01)
[2021-04-11] MEDS: TAMSULOSIN 0.4 MG CAP PO SCH ×2 (10:01→20:14)
[2021-04-11] MEDS: SPIRONOLACTONE 25 MG TAB PO SCH (10:02)
[2021-04-11] MEDS: HEPARIN SOD (PORCINE) 5000UNITS/ML 1ML VIAL/SYRINGE SQ SCH ×2 (10:02→20:12)
[2021-04-11 10:10] LABS: HEMATOCRIT 32.5 % (36.0-47.0); HEMOGLOBIN 10.3 g/dl (12.0-15.5); MEAN CORPUSCULAR HEMOGLOBIN 30.7 pg (27.0-33.0); MEAN CORPUSCULAR HGB CONC 31.7 g/dl (32.0-36.5); MEAN CORPUSCULAR VOLUME 96.7 fl (80.0-96.0); PLATELET COUNT, AUTOMATED 254 10^3/uL (150-450); RED BLOOD COUNT 3.36 10^6/uL (4.00-5.40); WHITE BLOOD COUNT 6.6 10^3/uL (4.0-10.0)
[2021-04-11 10:31] LABS: CALCIUM LEVEL 8.9 MG/DL (8.8-10.2); CREATININE FOR GFR 1.09 MG/DL (0.55-1.30); POTASSIUM SERUM 4.4 MEQ/L (3.5-5.1)
[2021-04-11 14:00] VITALS: BP 102/62
[2021-04-11] MEDS: busPIRone 5 MG TAB PO SCH (20:12)
[2021-04-11] MEDS: GABAPENTIN 100 MG CAP PO SCH (20:15)
[2021-04-11] MEDS: atenoloL 25 MG TAB PO SCH (20:16)
[2021-04-11 22:00] VITALS: BP 105/56
[2021-04-12] MEDS: LEVOTHYROXINE 50MCG TABLET (0.05MG) PO SCH (05:59)
[2021-04-12] MEDS: PERCOCET 5MG/325MG TAB PO PRN ×3 (05:59→20:07)
[2021-04-12 06:00] VITALS: BP 144/73
[2021-04-12 06:29] LABS: HEMATOCRIT 33.1 % (36.0-47.0); HEMOGLOBIN 10.4 g/dl (12.0-15.5); MEAN CORPUSCULAR HEMOGLOBIN 30.4 pg (27.0-33.0); MEAN CORPUSCULAR HGB CONC 31.4 g/dl (32.0-36.5); MEAN CORPUSCULAR VOLUME 96.8 fl (80.0-96.0); PLATELET COUNT, AUTOMATED 217 10^3/uL (150-450); RED BLOOD COUNT 3.42 10^6/uL (4.00-5.40)
[2021-04-12 06:49] LABS: CALCIUM LEVEL 8.7 MG/DL (8.8-10.2); CREATININE FOR GFR 1.12 MG/DL (0.55-1.30); GLOMERULAR FILTRATION RATE 49.5 (>32); POTASSIUM SERUM 4.2 MEQ/L (3.5-5.1)
[2021-04-12] MEDS: MOM 30ML SUSPENSION UDC PO SCH (09:00)
[2021-04-12] MEDS: THIAMINE 100 MG TAB PO SCH (09:24)
[2021-04-12] MEDS: PYRIDOXINE 50 MG TAB PO SCH (09:25)
[2021-04-12] MEDS: valACYclovir HCL 500 MG TAB PO SCH ×2 (09:25→20:11)
[2021-04-12] MEDS: SPIRONOLACTONE 25 MG TAB PO SCH (09:26)
[2021-04-12] MEDS: TAMSULOSIN 0.4 MG CAP PO SCH ×2 (09:26→20:11)
[2021-04-12] MEDS: ACETAMINOPHEN TAB 650MG DOSE (2X325MG) PO PRN ×2 (09:26→16:16)
[2021-04-12] MEDS: HYDROXYCHLOROQUINE 200 MG TAB PO SCH (09:26)
[2021-04-12] MEDS: predniSONE 10 MG TAB PO SCH (09:27)
[2021-04-12] MEDS: FUROSEMIDE 40 MG TAB PO SCH (09:27)
[2021-04-12] MEDS: PHENYTOIN ER 100 MG CAP PO SCH ×3 (09:27→20:10)
[2021-04-12] MEDS: HEPARIN SOD (PORCINE) 5000UNITS/ML 1ML VIAL/SYRINGE SQ SCH ×2 (09:28→20:12)
[2021-04-12 14:00] VITALS: BP 97/57
[2021-04-12] MEDS: atenoloL 25 MG TAB PO SCH (20:09)
[2021-04-12] MEDS: busPIRone 5 MG TAB PO SCH (20:10)
[2021-04-12] MEDS: GABAPENTIN 100 MG CAP PO SCH (20:11)
[2021-04-12 22:00] VITALS: BP 113/63
[2021-04-13] MEDS: LEVOTHYROXINE 50MCG TABLET (0.05MG) PO SCH (05:09)
[2021-04-13] MEDS: PERCOCET 5MG/325MG TAB PO PRN ×3 (05:11→20:11)
[2021-04-13 05:54] VITALS: BP 115/63
[2021-04-13 06:09] LABS: HEMATOCRIT 30.8 % (36.0-47.0); HEMOGLOBIN 9.5 g/dl (12.0-15.5); MEAN CORPUSCULAR HGB CONC 30.8 g/dl (32.0-36.5); MEAN CORPUSCULAR VOLUME 97.2 fl (80.0-96.0); PLATELET COUNT, AUTOMATED 219 10^3/uL (150-450); RED BLOOD COUNT 3.17 10^6/uL (4.00-5.40); WHITE BLOOD COUNT 5.9 10^3/uL (4.0-10.0)
[2021-04-13 06:33] LABS: CALCIUM LEVEL 8.8 MG/DL (8.8-10.2); CREATININE FOR GFR 1.01 MG/DL (0.55-1.30); GLOMERULAR FILTRATION RATE 55.7 (>32); POTASSIUM SERUM 4.6 MEQ/L (3.5-5.1)
[2021-04-13] MEDS: PHENYTOIN ER 100 MG CAP PO SCH ×3 (08:52→20:12)
[2021-04-13] MEDS: MOM 30ML SUSPENSION UDC PO SCH (08:52)
[2021-04-13] MEDS: THIAMINE 100 MG TAB PO SCH (08:52)
[2021-04-13] MEDS: TAMSULOSIN 0.4 MG CAP PO SCH ×2 (08:52→20:11)
[2021-04-13] MEDS: HYDROXYCHLOROQUINE 200 MG TAB PO SCH (08:53)
[2021-04-13] MEDS: ACETAMINOPHEN TAB 650MG DOSE (2X325MG) PO PRN ×3 (08:53→23:07)
[2021-04-13] MEDS: PYRIDOXINE 50 MG TAB PO SCH (08:53)
[2021-04-13] MEDS: predniSONE 10 MG TAB PO SCH (08:53)
[2021-04-13] MEDS: SPIRONOLACTONE 25 MG TAB PO SCH (08:53)
[2021-04-13] MEDS: valACYclovir HCL 500 MG TAB PO SCH ×2 (08:53→20:11)
[2021-04-13] MEDS: HEPARIN SOD (PORCINE) 5000UNITS/ML 1ML VIAL/SYRINGE SQ SCH ×2 (08:54→20:10)
[2021-04-13 14:00] VITALS: BP 110/66
[2021-04-13] MEDS: busPIRone 5 MG TAB PO SCH (20:12)
[2021-04-13] MEDS: GABAPENTIN 100 MG CAP PO SCH (20:12)
[2021-04-13] MEDS: atenoloL 25 MG TAB PO SCH (20:13)
[2021-04-13 22:00] VITALS: BP 112/63
[2021-04-14] MEDS: PERCOCET 5MG/325MG TAB PO PRN ×3 (02:48→20:03)
[2021-04-14] MEDS: LEVOTHYROXINE 50MCG TABLET (0.05MG) PO SCH (05:50)
[2021-04-14 06:00] VITALS: BP 111/63
[2021-04-14 07:15] LABS: HEMOGLOBIN 9.7 g/dl (12.0-15.5); MEAN CORPUSCULAR HEMOGLOBIN 30.7 pg (27.0-33.0); MEAN CORPUSCULAR HGB CONC 31.3 g/dl (32.0-36.5); MEAN CORPUSCULAR VOLUME 98.1 fl (80.0-96.0); PLATELET COUNT, AUTOMATED 225 10^3/uL (150-450); RED BLOOD COUNT 3.16 10^6/uL (4.00-5.40); WHITE BLOOD COUNT 5.6 10^3/uL (4.0-10.0)
[2021-04-14 07:30] LABS: CALCIUM LEVEL 8.5 MG/DL (8.8-10.2); CREATININE FOR GFR 1.11 MG/DL (0.55-1.30)
[2021-04-14] MEDS: TAMSULOSIN 0.4 MG CAP PO SCH ×2 (08:29→20:01)
[2021-04-14] MEDS: HYDROXYCHLOROQUINE 200 MG TAB PO SCH (08:29)
[2021-04-14] MEDS: predniSONE 10 MG TAB PO SCH (08:29)
[2021-04-14] MEDS: MOM 30ML SUSPENSION UDC PO SCH (08:29)
[2021-04-14] MEDS: valACYclovir HCL 500 MG TAB PO SCH (08:29)
[2021-04-14] MEDS: PHENYTOIN ER 100 MG CAP PO SCH ×3 (08:29→20:01)
[2021-04-14] MEDS: PYRIDOXINE 50 MG TAB PO SCH (08:29)
[2021-04-14] MEDS: SPIRONOLACTONE 25 MG TAB PO SCH (08:29)
[2021-04-14] MEDS: ACETAMINOPHEN TAB 650MG DOSE (2X325MG) PO PRN ×2 (08:30→17:31)
[2021-04-14] MEDS: THIAMINE 100 MG TAB PO SCH (08:30)
[2021-04-14] MEDS: HEPARIN SOD (PORCINE) 5000UNITS/ML 1ML VIAL/SYRINGE SQ SCH ×2 (08:30→20:00)
[2021-04-14] MEDS: LACTOBACILLUS ACIDOPHILUS CAP (BACID) PO SCH (12:41)
[2021-04-14] MEDS: MIRALAX *UNIT DOSE* 17GM PACKET PO SCH (12:41)
[2021-04-14] MEDS ORDERED: FLEET ENEMA PR ONE (19:00)
[2021-04-14] MEDS: RAMELTEON 8 MG TAB (ROZEREM) PO SCH (20:02)
[2021-04-14] MEDS: GABAPENTIN 100 MG CAP PO SCH (20:02)
[2021-04-14] MEDS: busPIRone 5 MG TAB PO SCH (20:02)
[2021-04-14] MEDS: ACETAMINOPHEN TAB 650MG DOSE (2X325MG) PO SCH (20:02)
[2021-04-14] MEDS: atenoloL 25 MG TAB PO SCH (20:03)
[2021-04-15] MEDS: PERCOCET 5MG/325MG TAB PO PRN ×2 (02:11→21:19)
[2021-04-15 05:15] LABS: HEMATOCRIT 29.6 % (36.0-47.0); HEMOGLOBIN 9.3 g/dl (12.0-15.5); MEAN CORPUSCULAR HEMOGLOBIN 30.9 pg (27.0-33.0); MEAN CORPUSCULAR HGB CONC 31.4 g/dl (32.0-36.5); MEAN CORPUSCULAR VOLUME 98.3 fl (80.0-96.0); PLATELET COUNT, AUTOMATED 211 10^3/uL (150-450); RED BLOOD COUNT 3.01 10^6/uL (4.00-5.40)
[2021-04-15 05:40] LABS: CALCIUM LEVEL 8.2 MG/DL (8.8-10.2); CREATININE FOR GFR 1.1 MG/DL (0.55-1.30); GLOMERULAR FILTRATION RATE 50.5 (>32)
[2021-04-15 06:00] VITALS: BP 114/65
[2021-04-15] MEDS: LEVOTHYROXINE 50MCG TABLET (0.05MG) PO SCH (06:13)
[2021-04-15] MEDS: HEPARIN SOD (PORCINE) 5000UNITS/ML 1ML VIAL/SYRINGE SQ SCH ×2 (09:23→21:01)
[2021-04-15] MEDS: ACETAMINOPHEN TAB 650MG DOSE (2X325MG) PO SCH ×2 (09:23→21:00)
[2021-04-15] MEDS: LACTOBACILLUS ACIDOPHILUS CAP (BACID) PO SCH (09:23)
[2021-04-15] MEDS: PHENYTOIN ER 100 MG CAP PO SCH ×3 (09:23→21:01)
[2021-04-15] MEDS: predniSONE 10 MG TAB PO SCH (09:24)
[2021-04-15] MEDS: MIRALAX *UNIT DOSE* 17GM PACKET PO SCH (09:24)
[2021-04-15] MEDS: HYDROXYCHLOROQUINE 200 MG TAB PO SCH (09:24)
[2021-04-15] MEDS: valACYclovir HCL 500 MG TAB PO SCH (09:24)
[2021-04-15] MEDS: TAMSULOSIN 0.4 MG CAP PO SCH ×2 (09:24→21:00)
[2021-04-15] MEDS: THIAMINE 100 MG TAB PO SCH (09:24)
[2021-04-15] MEDS: MOM 30ML SUSPENSION UDC PO SCH (09:24)
[2021-04-15] MEDS: SPIRONOLACTONE 25 MG TAB PO SCH (09:25)
[2021-04-15] MEDS: PYRIDOXINE 50 MG TAB PO SCH (09:25)
[2021-04-15 20:00] VITALS: BP 112/61
[2021-04-15 20:56] VITALS: BP 111/61
[2021-04-15] MEDS: atenoloL 25 MG TAB PO SCH (20:58)
[2021-04-15] MEDS: GABAPENTIN 100 MG CAP PO SCH (20:58)
[2021-04-15] MEDS: RAMELTEON 8 MG TAB (ROZEREM) PO SCH (20:58)
[2021-04-15] MEDS: busPIRone 5 MG TAB PO SCH (20:59)
[2021-04-16] MEDS: PERCOCET 5MG/325MG TAB PO PRN ×2 (05:01→20:48)
[2021-04-16] MEDS: LEVOTHYROXINE 50MCG TABLET (0.05MG) PO SCH (05:01)
[2021-04-16 05:08] VITALS: BP 99/60
[2021-04-16 06:21] LABS: HEMATOCRIT 28.4 % (36.0-47.0); HEMOGLOBIN 8.8 g/dl (12.0-15.5); MEAN CORPUSCULAR HEMOGLOBIN 30.2 pg (27.0-33.0); MEAN CORPUSCULAR VOLUME 97.6 fl (80.0-96.0); PLATELET COUNT, AUTOMATED 215 10^3/uL (150-450); RED BLOOD COUNT 2.91 10^6/uL (4.00-5.40); WHITE BLOOD COUNT 6.1 10^3/uL (4.0-10.0)
[2021-04-16 06:39] LABS: CALCIUM LEVEL 8.3 MG/DL (8.8-10.2); CREATININE FOR GFR 1.11 MG/DL (0.55-1.30)
[2021-04-16] MEDS: MIRALAX *UNIT DOSE* 17GM PACKET PO SCH (08:21)
[2021-04-16] MEDS: SPIRONOLACTONE 25 MG TAB PO SCH (08:21)
[2021-04-16] MEDS: PHENYTOIN ER 100 MG CAP PO SCH ×3 (08:21→20:44)
[2021-04-16] MEDS: HEPARIN SOD (PORCINE) 5000UNITS/ML 1ML VIAL/SYRINGE SQ SCH ×2 (08:21→20:44)
[2021-04-16] MEDS: valACYclovir HCL 500 MG TAB PO SCH (08:22)
[2021-04-16] MEDS: predniSONE 10 MG TAB PO SCH (08:22)
[2021-04-16] MEDS: THIAMINE 100 MG TAB PO SCH (08:22)
[2021-04-16] MEDS: PYRIDOXINE 50 MG TAB PO SCH (08:22)
[2021-04-16] MEDS: HYDROXYCHLOROQUINE 200 MG TAB PO SCH (08:22)
[2021-04-16] MEDS: TAMSULOSIN 0.4 MG CAP PO SCH ×2 (08:22→20:47)
[2021-04-16] MEDS: MOM 30ML SUSPENSION UDC PO SCH (08:23)
[2021-04-16] MEDS: ACETAMINOPHEN TAB 650MG DOSE (2X325MG) PO SCH ×2 (08:23→20:46)
[2021-04-16] MEDS: LACTOBACILLUS ACIDOPHILUS CAP (BACID) PO SCH (08:23)
[2021-04-16 12:57] LABS: TOTAL 25(OH) VITAMIN D 46.9 NG/ML (30.0-100.0)
[2021-04-16] MEDS: ACETAMINOPHEN TAB 650MG DOSE (2X325MG) PO PRN (18:10)
[2021-04-16] MEDS: atenoloL 25 MG TAB PO SCH (20:46)
[2021-04-16] MEDS: busPIRone 5 MG TAB PO SCH (20:47)
[2021-04-16] MEDS: GABAPENTIN 100 MG CAP PO SCH (20:47)
[2021-04-16] MEDS: RAMELTEON 8 MG TAB (ROZEREM) PO SCH (20:47)
[2021-04-17] MEDS: PERCOCET 5MG/325MG TAB PO PRN ×2 (03:09→22:45)
[2021-04-17] MEDS: LEVOTHYROXINE 50MCG TABLET (0.05MG) PO SCH (05:02)
[2021-04-17 05:30] VITALS: BP 102/57
[2021-04-17] MEDS: MOM 30ML SUSPENSION UDC PO SCH (09:00)
[2021-04-17] MEDS: MIRALAX *UNIT DOSE* 17GM PACKET PO SCH (09:00)
[2021-04-17] MEDS: PYRIDOXINE 50 MG TAB PO SCH (09:40)
[2021-04-17] MEDS: TAMSULOSIN 0.4 MG CAP PO SCH ×2 (09:40→20:40)
[2021-04-17] MEDS: valACYclovir HCL 500 MG TAB PO SCH (09:41)
[2021-04-17] MEDS: ACETAMINOPHEN TAB 650MG DOSE (2X325MG) PO SCH ×2 (09:41→20:40)
[2021-04-17] MEDS: LACTOBACILLUS ACIDOPHILUS CAP (BACID) PO SCH (09:41)
[2021-04-17] MEDS: THIAMINE 100 MG TAB PO SCH (09:41)
[2021-04-17] MEDS: SPIRONOLACTONE 25 MG TAB PO SCH (09:42)
[2021-04-17] MEDS: PHENYTOIN ER 100 MG CAP PO SCH ×3 (09:42→20:42)
[2021-04-17] MEDS: predniSONE 10 MG TAB PO SCH (09:42)
[2021-04-17] MEDS: HYDROXYCHLOROQUINE 200 MG TAB PO SCH (09:42)
[2021-04-17] MEDS: HEPARIN SOD (PORCINE) 5000UNITS/ML 1ML VIAL/SYRINGE SQ SCH ×2 (09:43→20:39)
[2021-04-17] MEDS: busPIRone 5 MG TAB PO SCH (20:40)
[2021-04-17] MEDS: GABAPENTIN 100 MG CAP PO SCH (20:40)
[2021-04-17] MEDS: RAMELTEON 8 MG TAB (ROZEREM) PO SCH (20:40)
[2021-04-17] MEDS: atenoloL 25 MG TAB PO SCH (20:42)
[2021-04-18] MEDS: LEVOTHYROXINE 50MCG TABLET (0.05MG) PO SCH (05:18)
[2021-04-18 05:42] VITALS: BP 119/59
[2021-04-18 06:41] LABS: BASO % 0.4 % (0.0-1.0); EOS % 0.4 % (0.0-3.0); HEMOGLOBIN 9.2 g/dl (12.0-15.5); LYMPH # 0.8 10^3/uL (1.5-5.0); LYMPH % 17.8 % (24.0-44.0); MEAN CORPUSCULAR HEMOGLOBIN 30.4 pg (27.0-33.0); MEAN CORPUSCULAR HGB CONC 31.7 g/dl (32.0-36.5); MEAN CORPUSCULAR VOLUME 95.7 fl (80.0-96.0); MONO # 0.6 10^3/uL (0.0-0.8); MONO % 12.6 % (2.0-8.0); NEUTROPHILS # 3.1 10^3/uL (1.5-8.5); NEUTROPHILS % 67.9 % (36.0-66.0); PLATELET COUNT, AUTOMATED 210 10^3/uL (150-450); RED BLOOD COUNT 3.03 10^6/uL (4.00-5.40); WHITE BLOOD COUNT 4.5 10^3/uL (4.0-10.0)
[2021-04-18 07:09] LABS: CALCIUM LEVEL 8.9 MG/DL (8.8-10.2); CREATININE FOR GFR 1.02 MG/DL (0.55-1.30); GLOMERULAR FILTRATION RATE 55.1 (>32); POTASSIUM SERUM 4.5 MEQ/L (3.5-5.1)
[2021-04-18] MEDS: MIRALAX *UNIT DOSE* 17GM PACKET PO SCH (09:10)
[2021-04-18] MEDS: PHENYTOIN ER 100 MG CAP PO SCH ×3 (09:11→20:03)
[2021-04-18] MEDS: CEPHALEXIN 500 MG CAP PO SCH ×2 (09:11→20:02)
[2021-04-18] MEDS: ACETAMINOPHEN TAB 650MG DOSE (2X325MG) PO SCH ×2 (09:12→20:02)
[2021-04-18] MEDS: LACTOBACILLUS ACIDOPHILUS CAP (BACID) PO SCH (09:13)
[2021-04-18] MEDS: THIAMINE 100 MG TAB PO SCH (09:13)
[2021-04-18] MEDS: valACYclovir HCL 500 MG TAB PO SCH (09:14)
[2021-04-18] MEDS: TAMSULOSIN 0.4 MG CAP PO SCH ×2 (09:14→20:02)
[2021-04-18] MEDS: HYDROXYCHLOROQUINE 200 MG TAB PO SCH (09:15)
[2021-04-18] MEDS: predniSONE 10 MG TAB PO SCH (09:16)
[2021-04-18] MEDS: PYRIDOXINE 50 MG TAB PO SCH (09:16)
[2021-04-18] MEDS: SPIRONOLACTONE 25 MG TAB PO SCH (09:17)
[2021-04-18] MEDS: MOM 30ML SUSPENSION UDC PO SCH (09:18)
[2021-04-18] MEDS: HEPARIN SOD (PORCINE) 5000UNITS/ML 1ML VIAL/SYRINGE SQ SCH ×2 (09:21→20:09)
[2021-04-18] MEDS ORDERED: NS 1,000 ML IV SCH (12:55)
[2021-04-18] MEDS: RAMELTEON 8 MG TAB (ROZEREM) PO SCH (20:02)
[2021-04-18] MEDS: GABAPENTIN 100 MG CAP PO SCH (20:02)
[2021-04-18] MEDS: busPIRone 5 MG TAB PO SCH (20:02)
[2021-04-18] MEDS: atenoloL 25 MG TAB PO SCH (20:05)
[2021-04-18] MEDS: PERCOCET 5MG/325MG TAB PO PRN (21:11)
[2021-04-18] MEDS: ACETAMINOPHEN TAB 650MG DOSE (2X325MG) PO PRN (23:47)
[2021-04-19] MEDS: PERCOCET 5MG/325MG TAB PO PRN ×3 (03:55→21:43)
[2021-04-19] MEDS: LEVOTHYROXINE 50MCG TABLET (0.05MG) PO SCH (05:42)
[2021-04-19 06:00] VITALS: BP 118/61
[2021-04-19] MEDS: HYDROXYCHLOROQUINE 200 MG TAB PO SCH (08:34)
[2021-04-19] MEDS: TAMSULOSIN 0.4 MG CAP PO SCH ×2 (08:35→20:52)
[2021-04-19] MEDS: PHENYTOIN ER 100 MG CAP PO SCH ×3 (08:35→20:53)
[2021-04-19] MEDS: CEPHALEXIN 500 MG CAP PO SCH ×2 (08:35→20:51)
[2021-04-19] MEDS: THIAMINE 100 MG TAB PO SCH (08:35)
[2021-04-19] MEDS: HEPARIN SOD (PORCINE) 5000UNITS/ML 1ML VIAL/SYRINGE SQ SCH ×2 (08:36→20:53)
[2021-04-19] MEDS: predniSONE 10 MG TAB PO SCH (08:36)
[2021-04-19] MEDS: LACTOBACILLUS ACIDOPHILUS CAP (BACID) PO SCH (08:36)
[2021-04-19] MEDS: PYRIDOXINE 50 MG TAB PO SCH (08:37)
[2021-04-19] MEDS: ACETAMINOPHEN TAB 650MG DOSE (2X325MG) PO SCH ×2 (08:39→20:52)
[2021-04-19] MEDS: MOM 30ML SUSPENSION UDC PO SCH (08:39)
[2021-04-19] MEDS: MIRALAX *UNIT DOSE* 17GM PACKET PO SCH (08:39)
[2021-04-19] MEDS: ACETAMINOPHEN TAB 650MG DOSE (2X325MG) PO PRN (13:48)
[2021-04-19] MEDS: busPIRone 5 MG TAB PO SCH (20:50)
[2021-04-19 20:51] VITALS: BP 115/63
[2021-04-19] MEDS: atenoloL 25 MG TAB PO SCH (20:51)
[2021-04-19] MEDS: GABAPENTIN 100 MG CAP PO SCH (20:51)
[2021-04-19] MEDS: RAMELTEON 8 MG TAB (ROZEREM) PO SCH (20:52)
[2021-04-20] MEDS: PERCOCET 5MG/325MG TAB PO PRN ×2 (04:06→10:46)
[2021-04-20] MEDS: LEVOTHYROXINE 50MCG TABLET (0.05MG) PO SCH (05:55)
[2021-04-20 06:00] VITALS: BP 106/57
[2021-04-20 06:15] LABS: HEMATOCRIT 28.1 % (36.0-47.0); HEMOGLOBIN 8.8 g/dl (12.0-15.5); MEAN CORPUSCULAR HEMOGLOBIN 30.3 pg (27.0-33.0); MEAN CORPUSCULAR HGB CONC 31.3 g/dl (32.0-36.5); MEAN CORPUSCULAR VOLUME 96.9 fl (80.0-96.0); PLATELET COUNT, AUTOMATED 189 10^3/uL (150-450)
[2021-04-20 06:37] LABS: BLOOD UREA NITROGEN 17 MG/DL (7-18); CALCIUM LEVEL 8.6 MG/DL (8.8-10.2); CARBON DIOXIDE LEVEL 26 MEQ/L (21-32); CHLORIDE LEVEL 107 MEQ/L (98-107); GLOMERULAR FILTRATION RATE > 60.0 (>32); GLUCOSE, FASTING 88 MG/DL (70-100); POTASSIUM SERUM 4.5 MEQ/L (3.5-5.1); SODIUM LEVEL 138 MEQ/L (136-145)
[2021-04-20] MEDS ORDERED: GABA-1171 PO (08:51)
[2021-04-20] MEDS ORDERED: RISATAB3 PO (08:51)
[2021-04-20] MEDS ORDERED: PERCOCET PO (08:51)
[2021-04-20] MEDS ORDERED: CEPH500C PO (08:51)
[2021-04-20] MEDS ORDERED: MIRA1POW3 PO (08:51)
[2021-04-20] MEDS ORDERED: FLOM0.4C39 PO (08:51)
[2021-04-20] MEDS: MOM 30ML SUSPENSION UDC PO SCH ×2 (09:00→09:09)
[2021-04-20] MEDS: MIRALAX *UNIT DOSE* 17GM PACKET PO SCH (09:00)
[2021-04-20] MEDS: HEPARIN SOD (PORCINE) 5000UNITS/ML 1ML VIAL/SYRINGE SQ SCH (09:09)
[2021-04-20] MEDS: PHENYTOIN ER 100 MG CAP PO SCH (09:09)
[2021-04-20] MEDS: ACETAMINOPHEN TAB 650MG DOSE (2X325MG) PO SCH (09:10)
[2021-04-20] MEDS: CEPHALEXIN 500 MG CAP PO SCH (09:10)
[2021-04-20] MEDS: PYRIDOXINE 50 MG TAB PO SCH (09:10)
[2021-04-20] MEDS: TAMSULOSIN 0.4 MG CAP PO SCH (09:11)
[2021-04-20] MEDS: THIAMINE 100 MG TAB PO SCH (09:11)
[2021-04-20] MEDS: HYDROXYCHLOROQUINE 200 MG TAB PO SCH (09:11)
[2021-04-20] MEDS: predniSONE 10 MG TAB PO SCH (09:11)
[2021-04-20] MEDS: LACTOBACILLUS ACIDOPHILUS CAP (BACID) PO SCH (09:11)
== END 2021-04-20 14:05 | disposition home health service (06) | DRG 866 ==
LOC: EDBD 12:24 → M ED 12:24 → M ED INP 16:29 → M MS5PR 21:00
PROVIDERS: ADMIT Internal Medicine; ATTEND Internal Medicine
DX: B02.7 Disseminated zoster (principal); D84.9 Immunodeficiency, unspecified; N17.9 Acute kidney failure, unspecified; T83.511A Infection and inflammatory reaction due to indwelling urethral catheter, initial encounter; N39.0 Urinary tract infection, site not specified; I50.9 Heart failure, unspecified; F03.90 Unspecified dementia, unspecified severity, without behavioral disturbance, psychotic disturbance, mood disturbance, and anxiety; M06.9 Rheumatoid arthritis, unspecified; E03.9 Hypothyroidism, unspecified; I11.0 Hypertensive heart disease with heart failure; G40.909 Epilepsy, unspecified, not intractable, without status epilepticus; F41.9 Anxiety disorder, unspecified; F42.9 Obsessive-compulsive disorder, unspecified; Z90.79 Acquired absence of other genital organ(s); Z79.52 Long term (current) use of systemic steroids; Z79.899 Other long term (current) drug therapy; Z88.2 Allergy status to sulfonamides; Z20.822 Contact with and (suspected) exposure to COVID-19; R33.9 Retention of urine, unspecified; Z72.3 Lack of physical exercise; B96.89 Other specified bacterial agents as the cause of diseases classified elsewhere

== ENCOUNTER → 2021-05-08 | Outpatient (REF) | payer MEDICARE ==
[~2021-05-08] MED LIST changes: +ACET500T15 PO; +CEPH500C PO; +FLOM0.4C39 PO; +GABA-1171 PO; +GLUCTAB6 PO; +LEVO50TA5 PO; +MIRA1POW3 PO; +PERCOCET PO; +PRED10TA2 PO; +PYRI25TA2 PO; +RA N1TAB PO; +RISATAB3 PO; +THIA100T7 PO; +TRAM50TA2 PO; +VALA1TAB5 PO
[2021-05-08 16:10] LABS: APPEARANCE, URINE CLEAR (CLEAR); BACTERIA, URINE AUTO NEGATIVE (NEGATIVE); BILIRUBIN, URINE AUTO NEGATIVE (NEGATIVE); BLOOD, URINE BLOOD 1+ (NEGATIVE); COLOR, URINE STRAW (YELLOW); GLUCOSE, URINE (UA) AUTO NEGATIVE (NEGATIVE); KETONE, URINE AUTO NEGATIVE (NEGATIVE); LEUKOCYTE ESTERASE, URINE AUTO 2+ (NEGATIVE); MUCUS, URINE SMALL (NEGATIVE); NITRITE, URINE AUTO NEGATIVE (NEGATIVE); PROTEIN, URINE AUTO NEGATIVE (NEGATIVE); RBC, URINE AUTO 4 /HPF (0-3); SPECIFIC GRAVITY URINE AUTO 1.008 (1.002-1.035); SQUAMOUS EPITHELIAL CELL UR AU 2 /HPF (0-6); UROBILINOGEN, URINE AUTO 0.2 mg/dL (0.0-2.0); WBC, URINE AUTO 26 /HPF (0-3)
== END ==
LOC: M LAB REF 15:50
PROVIDERS: ATTEND Nurse Practitioner Family
DX: R35.0 Frequency of micturition (principal)

== ENCOUNTER 2021-05-09 14:54 | Emergency (ER) | payer MEDICARE ==
[~2021-05-09] VITALS: Ht 157.5 cm; Wt 47.0 kg
[2021-05-09 17:08] LABS: BASO % 0.2 % (0.0-1.0); EOS % 0.3 % (0.0-3.0); HEMATOCRIT 31.3 % (36.0-47.0); HEMOGLOBIN 10.1 g/dl (12.0-15.5); LYMPH % 14.4 % (24.0-44.0); MEAN CORPUSCULAR HEMOGLOBIN 31.2 pg (27.0-33.0); MEAN CORPUSCULAR HGB CONC 32.3 g/dl (32.0-36.5); MEAN CORPUSCULAR VOLUME 96.6 fl (80.0-96.0); MONO # 0.6 10^3/uL (0.0-0.8); MONO % 9.6 % (2.0-8.0); NEUTROPHILS % 75.2 % (36.0-66.0); PLATELET COUNT, AUTOMATED 196 10^3/uL (150-450); RED BLOOD COUNT 3.24 10^6/uL (4.00-5.40); WHITE BLOOD COUNT 6.6 10^3/uL (4.0-10.0)
[2021-05-09] MEDS ORDERED: LORazepam 1 MG TAB PO ONE (17:15)
[2021-05-09 17:57] LABS: BILIRUBIN,TOTAL 0.2 MG/DL (0.2-1.0); CALCIUM LEVEL 9.2 MG/DL (8.8-10.2); CREATININE FOR GFR 1.04 MG/DL (0.55-1.30); GLOMERULAR FILTRATION RATE 53.9 (>32); POTASSIUM SERUM 4.4 MEQ/L (3.5-5.1)
[2021-05-09 19:19] VITALS: BP 146/78
== END 2021-05-09 21:00 | disposition home or self-care (01) ==
LOC: M ED 14:54
DX: I89.0 Lymphedema, not elsewhere classified (principal); B02.9 Zoster without complications; I50.9 Heart failure, unspecified; I10 Essential (primary) hypertension; N18.9 Chronic kidney disease, unspecified; G40.909 Epilepsy, unspecified, not intractable, without status epilepticus; Z87.442 Personal history of urinary calculi; K21.9 Gastro-esophageal reflux disease without esophagitis; M19.90 Unspecified osteoarthritis, unspecified site; F03.90 Unspecified dementia, unspecified severity, without behavioral disturbance, psychotic disturbance, mood disturbance, and anxiety; E03.9 Hypothyroidism, unspecified; D64.9 Anemia, unspecified; M06.9 Rheumatoid arthritis, unspecified; Z79.899 Other long term (current) drug therapy; Z88.2 Allergy status to sulfonamides

== ENCOUNTER → 2021-06-28 | Outpatient (REF) | payer MEDICARE ==
[~2021-06-28] MED LIST changes: +ACET650T61 PO; +BACITAB PO; +BENA25CA4 PO; +FURO40TA2; -GLUCTAB6 PO; +GLUCTAB7 PO; +MAGN250T11 PO; +MELA3TAB30 PO; +MELATAB3 PO; +MONI4CRE3 PV; +OXYB5TAB10; +OXYB5TAB10 PO; +OXYC1TAB23 PO; +PRED5TA PO; +SERT25TA21; +SERT25TA21 PO; +VITA100093 PO
[2021-06-28 18:45] LABS: ALBUMIN 3.3 GM/DL (3.2-5.2); BILIRUBIN,TOTAL 0.3 MG/DL (0.2-1.0); CALCIUM LEVEL 9.4 MG/DL (8.8-10.2); CREATININE FOR GFR 0.97 MG/DL (0.55-1.30); FREE T4 1.09 NG/DL (0.76-1.46); GLOMERULAR FILTRATION RATE 58.4 (>32); MAGNESIUM LEVEL 2.2 MG/DL (1.8-2.4); POTASSIUM SERUM 4.4 MEQ/L (3.5-5.1); THYROID STIMULATING HORMONE 2.11 uIU/ML (0.358-3.740); TOTAL PROTEIN 7.5 GM/DL (6.4-8.2)
[2021-06-28 18:55] LABS: TOTAL 25(OH) VITAMIN D 51.2 NG/ML (30.0-100.0)
[2021-06-29 00:48] LABS: BASO % 0.3 % (0.0-1.0); EOS % 0.3 % (0.0-3.0); HEMOGLOBIN 10.9 g/dl (12.0-15.5); LYMPH % 15.8 % (24.0-44.0); MEAN CORPUSCULAR HEMOGLOBIN 31.6 pg (27.0-33.0); MEAN CORPUSCULAR VOLUME 95.7 fl (80.0-96.0); MONO # 0.7 10^3/uL (0.0-0.8); MONO % 10.8 % (2.0-8.0); NEUTROPHILS # 4.5 10^3/uL (1.5-8.5); NEUTROPHILS % 72.3 % (36.0-66.0); PLATELET COUNT, AUTOMATED 279 10^3/uL (150-450); RED BLOOD COUNT 3.45 10^6/uL (4.00-5.40); WHITE BLOOD COUNT 6.2 10^3/uL (4.0-10.0)
[2021-07-15 15:09] LABS: VITAMIN B6,PYRIDOXAL PHOSPHATE 49.5 ug/L (3.4-65.2)
== END ==
LOC: M LAB REF 17:52
PROVIDERS: ATTEND Nurse Practitioner Family
DX: R41.82 Altered mental status, unspecified (principal); M32.14 Glomerular disease in systemic lupus erythematosus; Z79.899 Other long term (current) drug therapy

== ENCOUNTER → 2021-06-28 | Outpatient (REF) | payer MEDICARE ==
[2021-06-28 18:38] LABS: ALBUMIN 3.3 GM/DL (3.2-5.2); BILIRUBIN,TOTAL 0.3 MG/DL (0.2-1.0); C REACTIVE PROTEIN QUANTITATIV 8.53 MG/DL (0.00-0.30); CALCIUM LEVEL 9.6 MG/DL (8.8-10.2); CREATININE FOR GFR 1.02 MG/DL (0.55-1.30); GLOMERULAR FILTRATION RATE 55.1 (>32); POTASSIUM SERUM 4.4 MEQ/L (3.5-5.1); TOTAL PROTEIN 7.6 GM/DL (6.4-8.2)
[2021-06-28 18:45] LABS: BASO % 0.3 % (0.0-1.0); EOS % 0.3 % (0.0-3.0); HEMOGLOBIN 10.9 g/dl (12.0-15.5); LYMPH % 16.4 % (24.0-44.0); MEAN CORPUSCULAR HEMOGLOBIN 30.5 pg (27.0-33.0); MEAN CORPUSCULAR HGB CONC 32.1 g/dl (32.0-36.5); MEAN CORPUSCULAR VOLUME 95.2 fl (80.0-96.0); MONO # 0.7 10^3/uL (0.0-0.8); MONO % 10.7 % (2.0-8.0); NEUTROPHILS # 4.4 10^3/uL (1.5-8.5); NEUTROPHILS % 71.7 % (36.0-66.0); PLATELET COUNT, AUTOMATED 273 10^3/uL (150-450); RED BLOOD COUNT 3.57 10^6/uL (4.00-5.40); WHITE BLOOD COUNT 6.2 10^3/uL (4.0-10.0)
[2021-06-28 20:35] LABS: ERYTHROCYTE SEDIMENTATION RATE 53 mm/hr (0-30)
[2021-07-02 16:24] LABS: ANTI DS-DNA AB Positive (Negative)
== END ==
LOC: M SFHCRHEU 14:57
PROVIDERS: ATTEND Internal Medicine Rheumatology
DX: M32.14 Glomerular disease in systemic lupus erythematosus (principal); R41.82 Altered mental status, unspecified; Z79.899 Other long term (current) drug therapy
CPT/HCPCS: 80053; 82306; 83735; 84207; 84425; 84439; 84443; 85025; 85652; 86140; 86160; 86225; G0463

== ENCOUNTER → 2021-07-01 | Outpatient (REF) | payer MEDICARE ==
[~2021-07-01] MED LIST changes: +GLUCTAB6 PO; -GLUCTAB7 PO
[2021-07-01 13:51] LABS: APPEARANCE, URINE HAZY (CLEAR); BACTERIA, URINE AUTO NEGATIVE (NEGATIVE); BILIRUBIN, URINE AUTO NEGATIVE (NEGATIVE); BLOOD, URINE BLOOD 1+ (NEGATIVE); COLOR, URINE STRAW (YELLOW); GLUCOSE, URINE (UA) AUTO NEGATIVE (NEGATIVE); KETONE, URINE AUTO NEGATIVE (NEGATIVE); LEUKOCYTE ESTERASE, URINE AUTO 3+ (NEGATIVE); NITRITE, URINE AUTO NEGATIVE (NEGATIVE); PROTEIN, URINE AUTO NEGATIVE (NEGATIVE); RBC, URINE AUTO 16 /HPF (0-3); SPECIFIC GRAVITY URINE AUTO 1.009 (1.002-1.035); SQUAMOUS EPITHELIAL CELL UR AU 3 /HPF (0-6); UROBILINOGEN, URINE AUTO 0.2 mg/dL (0.0-2.0); WBC, URINE AUTO 35 /HPF (0-3)
== END ==
LOC: M LAB REF 12:40
PROVIDERS: ATTEND Nurse Practitioner Family
DX: R41.82 Altered mental status, unspecified (principal)

== ENCOUNTER 2021-07-02 17:48 | Inpatient (IN) | payer MEDICARE ==
[~2021-07-02] VITALS: Ht 160 cm; Wt 52.3 kg
[~2021-07-02 17:48] MED LIST changes: -ACET650T61 PO; -BACITAB PO; -BENA25CA4 PO; -FURO40TA2; -GLUCTAB6 PO; +GLUCTAB7 PO; -MAGN250T11 PO; -MELA3TAB30 PO; -MELATAB3 PO; -MONI4CRE3 PV; -OXYB5TAB10; -OXYB5TAB10 PO; -OXYC1TAB23 PO; -PRED5TA PO; -SERT25TA21; -SERT25TA21 PO; -VITA100093 PO
[2021-07-02] MEDS ORDERED: SERT25TA21 (18:08)
[2021-07-02] MEDS ORDERED: MONI4CRE3 PV (18:08)
[2021-07-02] MEDS ORDERED: FURO40TA2 (18:08)
[2021-07-02] MEDS ORDERED: OXYB5TAB10 (18:08)
[2021-07-02] MEDS ORDERED: NS 1,000 ML IV ONE (23:15)
[2021-07-02] MEDS ORDERED: AMPICILLIN SOD 500 MG in D5W 50 ML IV ONE (23:15)
[2021-07-03 00:27] LABS: BASO % 0.4 % (0.0-1.0); EOS % 0.5 % (0.0-3.0); HEMATOCRIT 35.8 % (36.0-47.0); HEMOGLOBIN 11.4 g/dl (12.0-15.5); LYMPH # 1.3 10^3/uL (1.5-5.0); LYMPH % 16.7 % (24.0-44.0); MEAN CORPUSCULAR HEMOGLOBIN 30.7 pg (27.0-33.0); MEAN CORPUSCULAR HGB CONC 31.8 g/dl (32.0-36.5); MEAN CORPUSCULAR VOLUME 96.5 fl (80.0-96.0); MONO # 0.6 10^3/uL (0.0-0.8); MONO % 7.8 % (2.0-8.0); NEUTROPHILS # 5.9 10^3/uL (1.5-8.5); NEUTROPHILS % 73.7 % (36.0-66.0); PLATELET COUNT, AUTOMATED 263 10^3/uL (150-450); RED BLOOD COUNT 3.71 10^6/uL (4.00-5.40)
[2021-07-03 00:34] LABS: ALBUMIN 3.3 GM/DL (3.2-5.2); ALT/SGPT 53 U/L (12-78); BILIRUBIN,DIRECT < 0.1 MG/DL (0.0-0.2); BILIRUBIN,TOTAL 0.2 MG/DL (0.2-1.0); BLOOD UREA NITROGEN 36 MG/DL (7-18); CALCIUM LEVEL 9.4 MG/DL (8.8-10.2); CARBON DIOXIDE LEVEL 27 MEQ/L (21-32); CHLORIDE LEVEL 103 MEQ/L (98-107); CREATININE FOR GFR 1.27 MG/DL (0.55-1.30); GLOMERULAR FILTRATION RATE 42.8 (>32); GLUCOSE, FASTING 109 MG/DL (70-100); LIPASE 130 U/L (73-393); POTASSIUM SERUM 4.4 MEQ/L (3.5-5.1); SODIUM LEVEL 137 MEQ/L (136-145); TOTAL PROTEIN 7.7 GM/DL (6.4-8.2)
[2021-07-03 00:45] LABS: RSV AMPLIFICATION NEGATIVE (NEGATIVE)
[2021-07-03] MEDS ORDERED: MOM 30ML SUSPENSION UDC PO PRN (02:00)
[2021-07-03] MEDS ORDERED: ACETAMINOPHEN TAB 650MG DOSE (2X325MG) PO PRN (02:00)
[2021-07-03] MEDS ORDERED: MAALOX 30 ML SUSP *UDC PO PRN (02:00)
[2021-07-03 02:11] LABS: INR 1.11; PROTHROMBIN TIME 14.7 SECONDS (12.7-14.5)
[2021-07-03 02:12] LABS: PARTIAL THROMBOPLASTIN TIME 44.7 SECONDS (25.9-37.0)
[2021-07-03] MEDS ORDERED: VITA100093 PO (03:51)
[2021-07-03] MEDS ORDERED: BACITAB PO (03:51)
[2021-07-03] MEDS ORDERED: OXYB5TAB10 PO (03:51)
[2021-07-03] MEDS ORDERED: MELA3TAB30 PO (03:51)
[2021-07-03] MEDS ORDERED: BENA25CA4 PO (03:51)
[2021-07-03] MEDS ORDERED: SERT25TA21 PO (03:51)
[2021-07-03] MEDS ORDERED: PYRI25TA2 PO (03:51)
[2021-07-03] MEDS ORDERED: ACET650T61 PO (03:51)
[2021-07-03] MEDS ORDERED: MAGN250T11 PO (03:51)
[2021-07-03] MEDS ORDERED: OXYC1TAB23 PO (03:51)
[2021-07-03] MEDS ORDERED: MELATAB3 PO (03:51)
[2021-07-03] MEDS ORDERED: B-1100TA2 PO (03:51)
[2021-07-03] MEDS ORDERED: PRED5TA PO (03:51)
[2021-07-03] MEDS ORDERED: HOME MED LIST COMPLETE! XX SCH (03:55)
[2021-07-03] MEDS ORDERED: PERCOCET 5MG/325MG TAB PO PRN (04:05)
[2021-07-03] MEDS ORDERED: PILL CUTTER 1 EACH XX PRN (04:20)
[2021-07-03] MEDS: LEVOTHYROXINE 50MCG TABLET (0.05MG) PO SCH (06:00)
[2021-07-03] MEDS: AMPICILLIN SOD/SULBACTAM SOD 3 GM in D5W MINI-BAG PLUS 100 ML IV SCH ×3 (06:00→18:34)
[2021-07-03] MEDS: ACETAMINOPHEN 650MG ER TAB (TYLENOL ARTHRITIS) PO SCH ×3 (06:00→20:47)
[2021-07-03 07:45] LABS: HEMATOCRIT 31.1 % (36.0-47.0); HEMOGLOBIN 10.1 g/dl (12.0-15.5); MEAN CORPUSCULAR HEMOGLOBIN 31.7 pg (27.0-33.0); MEAN CORPUSCULAR HGB CONC 32.5 g/dl (32.0-36.5); MEAN CORPUSCULAR VOLUME 97.5 fl (80.0-96.0); PLATELET COUNT, AUTOMATED 204 10^3/uL (150-450); RED BLOOD COUNT 3.19 10^6/uL (4.00-5.40); WHITE BLOOD COUNT 6.9 10^3/uL (4.0-10.0)
[2021-07-03 08:01] LABS: CALCIUM LEVEL 9.1 MG/DL (8.8-10.2); CREATININE FOR GFR 1.01 MG/DL (0.55-1.30); GLOMERULAR FILTRATION RATE 55.7 (>32)
[2021-07-03] MEDS: VITAMIN D 1,000 INTERNATIONAL UNITS TABLET PO SCH (08:16)
[2021-07-03] MEDS: busPIRone 5 MG TAB PO SCH ×2 (08:16→20:46)
[2021-07-03] MEDS: ENOXAPARIN 30MG/0.3ML SYRINGE (J1650 PER 10MG) SC SCH (08:16)
[2021-07-03] MEDS: LACTOBACILLUS ACIDOPHILUS CAP (BACID) PO SCH (08:16)
[2021-07-03] MEDS: DOCUSATE SODIUM 100MG CAPSULE PO SCH ×2 (08:16→20:49)
[2021-07-03] MEDS: predniSONE 10 MG TAB PO SCH (08:16)
[2021-07-03] MEDS: THIAMINE 100 MG TAB PO SCH ×2 (08:16→20:47)
[2021-07-03 08:58] VITALS: BP 145/65
[2021-07-03] MEDS: PHENYTOIN ER 100 MG CAP PO SCH ×2 (09:00→16:39)
[2021-07-03] MEDS: SPIRONOLACTONE 50 MG TAB PO SCH (13:45)
[2021-07-03] MEDS: HYDROXYCHLOROQUINE 200 MG TAB PO SCH (13:46)
[2021-07-03] MEDS: SERTRALINE HCL 25 MG TABLET PO SCH (16:39)
[2021-07-03 20:00] VITALS: BP 115/82
[2021-07-03] MEDS: diphenhydrAMINE 25MG CAP PO SCH (20:45)
[2021-07-03] MEDS: RAMELTEON 8 MG TAB (ROZEREM) PO SCH (20:47)
[2021-07-03] MEDS: atenoloL 25 MG TAB PO SCH (20:49)
[2021-07-04] MEDS: oxyBUTYnin 5 MG TAB PO SCH ×2 (00:45→21:31)
[2021-07-04] MEDS: AMPICILLIN SOD/SULBACTAM SOD 3 GM in D5W MINI-BAG PLUS 100 ML IV SCH ×2 (00:45→05:34)
[2021-07-04] MEDS: PHENYTOIN ER 100 MG CAP PO SCH ×4 (00:45→20:23)
[2021-07-04 04:00] VITALS: BP 134/72
[2021-07-04] MEDS: LEVOTHYROXINE 50MCG TABLET (0.05MG) PO SCH (05:34)
[2021-07-04] MEDS: ACETAMINOPHEN 650MG ER TAB (TYLENOL ARTHRITIS) PO SCH ×3 (05:34→20:25)
[2021-07-04 06:21] LABS: HEMATOCRIT 30.1 % (36.0-47.0); HEMOGLOBIN 9.4 g/dl (12.0-15.5); MEAN CORPUSCULAR HEMOGLOBIN 30.3 pg (27.0-33.0); MEAN CORPUSCULAR HGB CONC 31.2 g/dl (32.0-36.5); MEAN CORPUSCULAR VOLUME 97.1 fl (80.0-96.0); PLATELET COUNT, AUTOMATED 170 10^3/uL (150-450); WHITE BLOOD COUNT 4.6 10^3/uL (4.0-10.0)
[2021-07-04 06:50] LABS: BLOOD UREA NITROGEN 21 MG/DL (7-18); CALCIUM LEVEL 8.8 MG/DL (8.8-10.2); CARBON DIOXIDE LEVEL 27 MEQ/L (21-32); CHLORIDE LEVEL 107 MEQ/L (98-107); CREATININE FOR GFR 0.94 MG/DL (0.55-1.30); GLOMERULAR FILTRATION RATE > 60.0 (>32); GLUCOSE, FASTING 109 MG/DL (70-100); SODIUM LEVEL 139 MEQ/L (136-145)
[2021-07-04] MEDS: SPIRONOLACTONE 50 MG TAB PO SCH (08:21)
[2021-07-04] MEDS: busPIRone 5 MG TAB PO SCH ×2 (08:22→20:25)
[2021-07-04] MEDS: LACTOBACILLUS ACIDOPHILUS CAP (BACID) PO SCH (08:22)
[2021-07-04] MEDS: predniSONE 10 MG TAB PO SCH (08:23)
[2021-07-04] MEDS: VITAMIN D 1,000 INTERNATIONAL UNITS TABLET PO SCH (08:24)
[2021-07-04] MEDS: THIAMINE 100 MG TAB PO SCH ×2 (08:24→20:24)
[2021-07-04] MEDS: HYDROXYCHLOROQUINE 200 MG TAB PO SCH (08:24)
[2021-07-04] MEDS: ENOXAPARIN 30MG/0.3ML SYRINGE (J1650 PER 10MG) SC SCH (08:25)
[2021-07-04] MEDS: DOCUSATE SODIUM 100MG CAPSULE PO SCH ×2 (08:26→20:25)
[2021-07-04] MEDS: AUGMENTIN 875 MG TAB PO SCH ×2 (08:57→20:24)
[2021-07-04 14:00] VITALS: BP 118/63
[2021-07-04] MEDS: SERTRALINE HCL 25 MG TABLET PO SCH (16:27)
[2021-07-04 20:00] VITALS: BP 131/77
[2021-07-04] MEDS: diphenhydrAMINE 25MG CAP PO SCH (20:23)
[2021-07-04] MEDS: atenoloL 25 MG TAB PO SCH (20:24)
[2021-07-04] MEDS: RAMELTEON 8 MG TAB (ROZEREM) PO SCH (20:25)
[2021-07-05 04:00] VITALS: BP 146/75
[2021-07-05] MEDS: LEVOTHYROXINE 50MCG TABLET (0.05MG) PO SCH (05:13)
[2021-07-05] MEDS: ACETAMINOPHEN 650MG ER TAB (TYLENOL ARTHRITIS) PO SCH ×3 (05:13→21:19)
[2021-07-05 07:48] LABS: CALCIUM LEVEL 9.1 MG/DL (8.8-10.2); GLOMERULAR FILTRATION RATE 56.4 (>32); HEMATOCRIT 32.9 % (36.0-47.0); HEMOGLOBIN 10.6 g/dl (12.0-15.5); MEAN CORPUSCULAR HEMOGLOBIN 31.8 pg (27.0-33.0); MEAN CORPUSCULAR HGB CONC 32.2 g/dl (32.0-36.5); MEAN CORPUSCULAR VOLUME 98.8 fl (80.0-96.0); PLATELET COUNT, AUTOMATED 210 10^3/uL (150-450); RED BLOOD COUNT 3.33 10^6/uL (4.00-5.40); WHITE BLOOD COUNT 6.4 10^3/uL (4.0-10.0)
[2021-07-05] MEDS: AUGMENTIN 875 MG TAB PO SCH ×2 (08:22→21:19)
[2021-07-05] MEDS: predniSONE 10 MG TAB PO SCH (08:23)
[2021-07-05] MEDS: HYDROXYCHLOROQUINE 200 MG TAB PO SCH (08:24)
[2021-07-05] MEDS: PHENYTOIN ER 100 MG CAP PO SCH ×3 (08:24→21:19)
[2021-07-05] MEDS: SPIRONOLACTONE 50 MG TAB PO SCH (08:24)
[2021-07-05] MEDS: busPIRone 5 MG TAB PO SCH ×2 (08:25→21:19)
[2021-07-05] MEDS: LACTOBACILLUS ACIDOPHILUS CAP (BACID) PO SCH (08:26)
[2021-07-05] MEDS: VITAMIN D 1,000 INTERNATIONAL UNITS TABLET PO SCH (08:26)
[2021-07-05] MEDS: THIAMINE 100 MG TAB PO SCH ×2 (08:26→21:19)
[2021-07-05] MEDS: ENOXAPARIN 30MG/0.3ML SYRINGE (J1650 PER 10MG) SC SCH (08:27)
[2021-07-05] MEDS: DOCUSATE SODIUM 100MG CAPSULE PO SCH ×2 (08:28→21:15)
[2021-07-05 14:00] VITALS: BP 108/59
[2021-07-05] MEDS: SERTRALINE HCL 25 MG TABLET PO SCH (16:19)
[2021-07-05 20:00] VITALS: BP 119/58
[2021-07-05] MEDS: diphenhydrAMINE 25MG CAP PO SCH (21:15)
[2021-07-05] MEDS: RAMELTEON 8 MG TAB (ROZEREM) PO SCH (21:18)
[2021-07-05] MEDS: atenoloL 25 MG TAB PO SCH (21:18)
[2021-07-05] MEDS: oxyBUTYnin 5 MG TAB PO SCH (21:19)
[2021-07-06] MEDS: ACETAMINOPHEN 650MG ER TAB (TYLENOL ARTHRITIS) PO SCH ×3 (05:49→20:56)
[2021-07-06] MEDS: LEVOTHYROXINE 50MCG TABLET (0.05MG) PO SCH (05:49)
[2021-07-06 06:00] VITALS: BP 127/88
[2021-07-06] MEDS: HYDROXYCHLOROQUINE 200 MG TAB PO SCH (08:16)
[2021-07-06] MEDS: THIAMINE 100 MG TAB PO SCH ×2 (08:16→20:56)
[2021-07-06] MEDS: LACTOBACILLUS ACIDOPHILUS CAP (BACID) PO SCH (08:16)
[2021-07-06] MEDS: DOCUSATE SODIUM 100MG CAPSULE PO SCH ×2 (08:16→20:56)
[2021-07-06] MEDS: predniSONE 10 MG TAB PO SCH (08:16)
[2021-07-06] MEDS: SPIRONOLACTONE 50 MG TAB PO SCH (08:17)
[2021-07-06] MEDS: VITAMIN D 1,000 INTERNATIONAL UNITS TABLET PO SCH (08:17)
[2021-07-06] MEDS: PHENYTOIN ER 100 MG CAP PO SCH ×3 (08:17→20:54)
[2021-07-06] MEDS: busPIRone 5 MG TAB PO SCH ×2 (08:17→20:57)
[2021-07-06] MEDS: AUGMENTIN 875 MG TAB PO SCH ×2 (08:17→20:56)
[2021-07-06] MEDS: ENOXAPARIN 30MG/0.3ML SYRINGE (J1650 PER 10MG) SC SCH (08:18)
[2021-07-06 14:00] VITALS: BP 125/72
[2021-07-06] MEDS: SERTRALINE HCL 25 MG TABLET PO SCH (16:14)
[2021-07-06 17:15] VITALS: BP 114/59
[2021-07-06 20:00] VITALS: BP 114/60
[2021-07-06] MEDS: diphenhydrAMINE 25MG CAP PO SCH (20:54)
[2021-07-06] MEDS: oxyBUTYnin 5 MG TAB PO SCH (20:55)
[2021-07-06] MEDS: atenoloL 25 MG TAB PO SCH (20:55)
[2021-07-06] MEDS: RAMELTEON 8 MG TAB (ROZEREM) PO SCH (20:56)
[2021-07-06 22:00] VITALS: BP 114/60
[2021-07-07] MEDS: ACETAMINOPHEN 650MG ER TAB (TYLENOL ARTHRITIS) PO SCH ×3 (05:55→20:41)
[2021-07-07] MEDS: LEVOTHYROXINE 50MCG TABLET (0.05MG) PO SCH (05:55)
[2021-07-07] MEDS: ENOXAPARIN 30MG/0.3ML SYRINGE (J1650 PER 10MG) SC SCH (09:50)
[2021-07-07] MEDS: LACTOBACILLUS ACIDOPHILUS CAP (BACID) PO SCH (09:50)
[2021-07-07] MEDS: busPIRone 5 MG TAB PO SCH ×2 (09:51→20:37)
[2021-07-07] MEDS: SPIRONOLACTONE 50 MG TAB PO SCH (09:52)
[2021-07-07] MEDS: VITAMIN D 1,000 INTERNATIONAL UNITS TABLET PO SCH (09:53)
[2021-07-07] MEDS: DOCUSATE SODIUM 100MG CAPSULE PO SCH ×2 (09:53→20:38)
[2021-07-07] MEDS: THIAMINE 100 MG TAB PO SCH ×2 (09:53→20:37)
[2021-07-07] MEDS: AUGMENTIN 875 MG TAB PO SCH ×2 (09:54→20:35)
[2021-07-07] MEDS: HYDROXYCHLOROQUINE 200 MG TAB PO SCH (09:54)
[2021-07-07] MEDS: predniSONE 10 MG TAB PO SCH (09:54)
[2021-07-07] MEDS: PHENYTOIN ER 100 MG CAP PO SCH ×3 (10:23→20:39)
[2021-07-07 14:00] VITALS: BP 113/59
[2021-07-07] MEDS: SERTRALINE HCL 25 MG TABLET PO SCH (16:59)
[2021-07-07] MEDS: diphenhydrAMINE 25MG CAP PO SCH (20:35)
[2021-07-07] MEDS: oxyBUTYnin 5 MG TAB PO SCH (20:36)
[2021-07-07] MEDS: RAMELTEON 8 MG TAB (ROZEREM) PO SCH (20:38)
[2021-07-07] MEDS: atenoloL 25 MG TAB PO SCH (20:39)
[2021-07-07 22:00] VITALS: BP 104/52
[2021-07-08] MEDS: LEVOTHYROXINE 50MCG TABLET (0.05MG) PO SCH (06:27)
[2021-07-08] MEDS: ACETAMINOPHEN 650MG ER TAB (TYLENOL ARTHRITIS) PO SCH ×3 (06:27→21:37)
[2021-07-08] MEDS: predniSONE 10 MG TAB PO SCH (09:16)
[2021-07-08] MEDS: HYDROXYCHLOROQUINE 200 MG TAB PO SCH (09:17)
[2021-07-08] MEDS: THIAMINE 100 MG TAB PO SCH ×2 (09:17→21:35)
[2021-07-08] MEDS: DOCUSATE SODIUM 100MG CAPSULE PO SCH ×2 (09:17→21:00)
[2021-07-08] MEDS: PHENYTOIN ER 100 MG CAP PO SCH ×3 (09:17→21:36)
[2021-07-08] MEDS: busPIRone 5 MG TAB PO SCH ×2 (09:17→21:36)
[2021-07-08] MEDS: VITAMIN D 1,000 INTERNATIONAL UNITS TABLET PO SCH (09:17)
[2021-07-08] MEDS: SPIRONOLACTONE 50 MG TAB PO SCH (09:17)
[2021-07-08] MEDS: AUGMENTIN 875 MG TAB PO SCH ×2 (09:17→21:34)
[2021-07-08] MEDS: LACTOBACILLUS ACIDOPHILUS CAP (BACID) PO SCH (09:17)
[2021-07-08] MEDS: ENOXAPARIN 30MG/0.3ML SYRINGE (J1650 PER 10MG) SC SCH (09:18)
[2021-07-08] MEDS: SERTRALINE HCL 25 MG TABLET PO SCH (15:52)
[2021-07-08] MEDS: diphenhydrAMINE 25MG CAP PO SCH (21:33)
[2021-07-08] MEDS: RAMELTEON 8 MG TAB (ROZEREM) PO SCH (21:34)
[2021-07-08] MEDS: oxyBUTYnin 5 MG TAB PO SCH (21:34)
[2021-07-08] MEDS: atenoloL 25 MG TAB PO SCH (21:35)
[2021-07-09 04:25] VITALS: BP 113/55
[2021-07-09] MEDS: LEVOTHYROXINE 50MCG TABLET (0.05MG) PO SCH (06:12)
[2021-07-09] MEDS: ACETAMINOPHEN 650MG ER TAB (TYLENOL ARTHRITIS) PO SCH ×3 (06:12→22:00)
[2021-07-09] MEDS: LACTOBACILLUS ACIDOPHILUS CAP (BACID) PO SCH (09:01)
[2021-07-09] MEDS: THIAMINE 100 MG TAB PO SCH ×2 (09:01→20:55)
[2021-07-09] MEDS: SPIRONOLACTONE 50 MG TAB PO SCH (09:01)
[2021-07-09] MEDS: predniSONE 10 MG TAB PO SCH (09:01)
[2021-07-09] MEDS: VITAMIN D 1,000 INTERNATIONAL UNITS TABLET PO SCH (09:01)
[2021-07-09] MEDS: PHENYTOIN ER 100 MG CAP PO SCH ×3 (09:01→20:54)
[2021-07-09] MEDS: DOCUSATE SODIUM 100MG CAPSULE PO SCH ×2 (09:01→20:55)
[2021-07-09] MEDS: AUGMENTIN 875 MG TAB PO SCH ×2 (09:01→20:53)
[2021-07-09] MEDS: HYDROXYCHLOROQUINE 200 MG TAB PO SCH (09:01)
[2021-07-09] MEDS: busPIRone 5 MG TAB PO SCH ×2 (09:01→20:55)
[2021-07-09] MEDS: ENOXAPARIN 30MG/0.3ML SYRINGE (J1650 PER 10MG) SC SCH (09:02)
[2021-07-09 13:52] VITALS: BP 108/66
[2021-07-09] MEDS: SERTRALINE HCL 25 MG TABLET PO SCH (16:08)
[2021-07-09] MEDS: diphenhydrAMINE 25MG CAP PO SCH (20:52)
[2021-07-09] MEDS: atenoloL 25 MG TAB PO SCH (20:53)
[2021-07-09] MEDS: RAMELTEON 8 MG TAB (ROZEREM) PO SCH (20:53)
[2021-07-09] MEDS: oxyBUTYnin 5 MG TAB PO SCH (20:54)
[2021-07-10] MEDS: LEVOTHYROXINE 50MCG TABLET (0.05MG) PO SCH (05:06)
[2021-07-10] MEDS: ACETAMINOPHEN 650MG ER TAB (TYLENOL ARTHRITIS) PO SCH ×3 (05:06→22:00)
[2021-07-10 06:00] VITALS: BP 119/64
[2021-07-10] MEDS: THIAMINE 100 MG TAB PO SCH ×2 (09:22→20:00)
[2021-07-10] MEDS: predniSONE 10 MG TAB PO SCH (09:22)
[2021-07-10] MEDS: SPIRONOLACTONE 50 MG TAB PO SCH (09:22)
[2021-07-10] MEDS: PHENYTOIN ER 100 MG CAP PO SCH ×3 (09:22→20:00)
[2021-07-10] MEDS: ENOXAPARIN 30MG/0.3ML SYRINGE (J1650 PER 10MG) SC SCH (09:22)
[2021-07-10] MEDS: busPIRone 5 MG TAB PO SCH ×2 (09:22→20:01)
[2021-07-10] MEDS: HYDROXYCHLOROQUINE 200 MG TAB PO SCH (09:22)
[2021-07-10] MEDS: VITAMIN D 1,000 INTERNATIONAL UNITS TABLET PO SCH (09:22)
[2021-07-10] MEDS: DOCUSATE SODIUM 100MG CAPSULE PO SCH ×2 (09:23→20:00)
[2021-07-10] MEDS: LACTOBACILLUS ACIDOPHILUS CAP (BACID) PO SCH (09:23)
[2021-07-10] MEDS: SERTRALINE HCL 25 MG TABLET PO SCH (15:02)
[2021-07-10] MEDS: diphenhydrAMINE 25MG CAP PO SCH (20:00)
[2021-07-10] MEDS: RAMELTEON 8 MG TAB (ROZEREM) PO SCH (20:00)
[2021-07-10] MEDS: oxyBUTYnin 5 MG TAB PO SCH (20:01)
[2021-07-10] MEDS: atenoloL 25 MG TAB PO SCH (20:02)
[2021-07-11] MEDS: LEVOTHYROXINE 50MCG TABLET (0.05MG) PO SCH (05:27)
[2021-07-11] MEDS: ACETAMINOPHEN 650MG ER TAB (TYLENOL ARTHRITIS) PO SCH ×3 (05:27→20:39)
[2021-07-11 06:00] VITALS: BP 126/71
[2021-07-11] MEDS: LACTOBACILLUS ACIDOPHILUS CAP (BACID) PO SCH (08:24)
[2021-07-11] MEDS: PHENYTOIN ER 100 MG CAP PO SCH ×3 (08:24→20:34)
[2021-07-11] MEDS: SPIRONOLACTONE 50 MG TAB PO SCH (08:24)
[2021-07-11] MEDS: VITAMIN D 1,000 INTERNATIONAL UNITS TABLET PO SCH (08:24)
[2021-07-11] MEDS: busPIRone 5 MG TAB PO SCH ×2 (08:24→20:35)
[2021-07-11] MEDS: DOCUSATE SODIUM 100MG CAPSULE PO SCH ×2 (08:24→20:34)
[2021-07-11] MEDS: predniSONE 10 MG TAB PO SCH (08:24)
[2021-07-11] MEDS: ENOXAPARIN 30MG/0.3ML SYRINGE (J1650 PER 10MG) SC SCH (08:24)
[2021-07-11] MEDS: HYDROXYCHLOROQUINE 200 MG TAB PO SCH (08:24)
[2021-07-11] MEDS: THIAMINE 100 MG TAB PO SCH ×2 (08:25→20:36)
[2021-07-11] MEDS: SERTRALINE HCL 25 MG TABLET PO SCH (15:12)
[2021-07-11 20:30] VITALS: BP 118/67
[2021-07-11] MEDS: diphenhydrAMINE 25MG CAP PO SCH (20:34)
[2021-07-11] MEDS: RAMELTEON 8 MG TAB (ROZEREM) PO SCH (20:34)
[2021-07-11 20:39] VITALS: BP 126/71
[2021-07-11] MEDS: oxyBUTYnin 5 MG TAB PO SCH (20:39)
[2021-07-11] MEDS: atenoloL 25 MG TAB PO SCH (20:39)
[2021-07-12] MEDS: ACETAMINOPHEN 650MG ER TAB (TYLENOL ARTHRITIS) PO SCH (06:03)
[2021-07-12] MEDS: LEVOTHYROXINE 50MCG TABLET (0.05MG) PO SCH (06:03)
== END 2021-07-12 07:45 | DRG 690 ==
LOC: M ED 17:48 → M ED INP 07-03 01:58 → ENRESERV 07-03 07:53 → M 4MAIN 07-03 08:58 → M MS5PR 07-06 17:15
PROVIDERS: ADMIT Family Medicine; ATTEND Family Medicine
DX: N39.0 Urinary tract infection, site not specified (principal); F03.91 Unspecified dementia, unspecified severity, with behavioral disturbance; M06.9 Rheumatoid arthritis, unspecified; G40.909 Epilepsy, unspecified, not intractable, without status epilepticus; I50.9 Heart failure, unspecified; I11.0 Hypertensive heart disease with heart failure; K21.9 Gastro-esophageal reflux disease without esophagitis; E03.9 Hypothyroidism, unspecified; Z98.41 Cataract extraction status, right eye; Z98.42 Cataract extraction status, left eye; Z90.49 Acquired absence of other specified parts of digestive tract; Z90.79 Acquired absence of other genital organ(s); Z20.822 Contact with and (suspected) exposure to COVID-19; Z86.16 Personal history of COVID-19; R62.7 Adult failure to thrive; F41.9 Anxiety disorder, unspecified; N32.81 Overactive bladder; Z79.52 Long term (current) use of systemic steroids; Z79.899 Other long term (current) drug therapy; Z88.2 Allergy status to sulfonamides; F32.A Depression, unspecified; B96.20 Unspecified Escherichia coli [E. coli] as the cause of diseases classified elsewhere; B96.4 Proteus (mirabilis) (morganii) as the cause of diseases classified elsewhere; B95.8 Unspecified staphylococcus as the cause of diseases classified elsewhere; Z74.01 Bed confinement status

== ENCOUNTER → 2021-07-22 | Outpatient (REF) ==
[~2021-07-22] MED LIST changes: +ACET650T61 PO; +BACITAB PO; +BENA25CA4 PO; +FURO40TA2; +MAGN250T11 PO; +MELA3TAB30 PO; +MELATAB3 PO; +MONI4CRE3 PV; +OXYB5TAB10; +OXYB5TAB10 PO; +OXYC1TAB23 PO; +PRED5TA PO; +SERT25TA21; +SERT25TA21 PO; +VITA100093 PO
[2021-07-22 10:41] LABS: HEMOGLOBIN 9.9 g/dl (12.0-15.5); MEAN CORPUSCULAR HEMOGLOBIN 29.6 pg (27.0-33.0); MEAN CORPUSCULAR HGB CONC 30.9 g/dl (32.0-36.5); MEAN CORPUSCULAR VOLUME 95.5 fl (80.0-96.0); PLATELET COUNT, AUTOMATED 262 10^3/uL (150-450); RED BLOOD COUNT 3.35 10^6/uL (4.00-5.40); WHITE BLOOD COUNT 5.5 10^3/uL (4.0-10.0)
[2021-07-22 11:12] LABS: BLOOD UREA NITROGEN 14 MG/DL (7-18); CALCIUM LEVEL 9.1 MG/DL (8.8-10.2); CARBON DIOXIDE LEVEL 25 MEQ/L (21-32); CHLORIDE LEVEL 102 MEQ/L (98-107); CREATININE FOR GFR 0.81 MG/DL (0.55-1.30); GLOMERULAR FILTRATION RATE > 60.0 (>32); GLUCOSE, FASTING 84 MG/DL (70-100); NT-PRO BNP 445 PG/ML (<450); POTASSIUM SERUM 5.4 MEQ/L (3.5-5.1); SODIUM LEVEL 134 MEQ/L (136-145)
== END ==
PROVIDERS: ATTEND Internal Medicine
DX: I50.9 Heart failure, unspecified (principal)

== ENCOUNTER → 2021-07-26 | Outpatient (REF) ==
[2021-07-26 20:02] LABS: BLOOD UREA NITROGEN 18 MG/DL (7-18); CREATININE FOR GFR 0.75 MG/DL (0.55-1.30); GLOMERULAR FILTRATION RATE > 60.0 (>32); GLUCOSE, FASTING 81 MG/DL (70-100)
[2021-07-26 20:03] LABS: CALCIUM LEVEL 8.9 MG/DL (8.8-10.2); CARBON DIOXIDE LEVEL 26 mmol/L (20-29); CHLORIDE LEVEL 99 MEQ/L (98-107); POTASSIUM SERUM 5.2 MEQ/L (3.5-5.1); SODIUM LEVEL 132 MEQ/L (136-145)
== END ==
PROVIDERS: ATTEND Internal Medicine
DX: E87.5 Hyperkalemia (principal)

== ENCOUNTER → 2021-07-29 | Outpatient (REF) | payer MEDICARE ==
[2021-07-29 11:24] LABS: HEMATOCRIT 30.1 % (36.0-47.0); HEMOGLOBIN 9.5 g/dl (12.0-15.5); MEAN CORPUSCULAR HEMOGLOBIN 30.2 pg (27.0-33.0); MEAN CORPUSCULAR HGB CONC 31.6 g/dl (32.0-36.5); MEAN CORPUSCULAR VOLUME 95.6 fl (80.0-96.0); PLATELET COUNT, AUTOMATED 229 10^3/uL (150-450); RED BLOOD COUNT 3.15 10^6/uL (4.00-5.40); WHITE BLOOD COUNT 5.5 10^3/uL (4.0-10.0)
[2021-07-29 12:01] LABS: BLOOD UREA NITROGEN 16 MG/DL (7-18); CALCIUM LEVEL 9.1 MG/DL (8.8-10.2); CARBON DIOXIDE LEVEL 28 MEQ/L (21-32); CHLORIDE LEVEL 98 MEQ/L (98-107); CREATININE FOR GFR 0.74 MG/DL (0.55-1.30); GLOMERULAR FILTRATION RATE > 60.0 (>32); GLUCOSE, FASTING 89 MG/DL (70-100); NT-PRO BNP 390 PG/ML (<450); POTASSIUM SERUM 4.5 MEQ/L (3.5-5.1); SODIUM LEVEL 135 MEQ/L (136-145)
== END ==
PROVIDERS: ATTEND Internal Medicine
DX: I50.9 Heart failure, unspecified (principal)

== ENCOUNTER → 2021-07-29 | Outpatient (REF) | payer MEDICARE | PROVIDERS: ATTEND Physician Assistant | DX: I50.9 Heart failure, unspecified (principal); Z53.9 Procedure and treatment not carried out, unspecified reason ==

== ENCOUNTER → 2021-08-05 | Outpatient (REF) | payer MEDICARE ==
[2021-08-05 09:55] LABS: HEMATOCRIT 31.9 % (36.0-47.0); HEMOGLOBIN 10.2 g/dl (12.0-15.5); MEAN CORPUSCULAR HEMOGLOBIN 29.2 pg (27.0-33.0); MEAN CORPUSCULAR VOLUME 91.4 fl (80.0-96.0); PLATELET COUNT, AUTOMATED 274 10^3/uL (150-450); RED BLOOD COUNT 3.49 10^6/uL (4.00-5.40); WHITE BLOOD COUNT 8.8 10^3/uL (4.0-10.0)
[2021-08-05 10:25] LABS: BLOOD UREA NITROGEN 18 MG/DL (7-18); CALCIUM LEVEL 9.8 MG/DL (8.8-10.2); CARBON DIOXIDE LEVEL 25 MEQ/L (21-32); CHLORIDE LEVEL 92 MEQ/L (98-107); CREATININE FOR GFR 0.87 MG/DL (0.55-1.30); GLOMERULAR FILTRATION RATE > 60.0 (>32); GLUCOSE, FASTING 165 MG/DL (70-100); NT-PRO BNP 353 PG/ML (<450); POTASSIUM SERUM 4.5 MEQ/L (3.5-5.1); SODIUM LEVEL 126 MEQ/L (136-145)
== END ==
PROVIDERS: ATTEND Internal Medicine
DX: I50.9 Heart failure, unspecified (principal)

== ENCOUNTER → 2021-08-07 | Outpatient (REF) | payer MEDICARE ==
[2021-08-07 11:32] LABS: BLOOD UREA NITROGEN 19 MG/DL (7-18); CALCIUM LEVEL 8.7 MG/DL (8.8-10.2); CARBON DIOXIDE LEVEL 26 MEQ/L (21-32); CHLORIDE LEVEL 93 MEQ/L (98-107); CREATININE FOR GFR 0.85 MG/DL (0.55-1.30); GLOMERULAR FILTRATION RATE > 60.0 (>32); GLUCOSE, FASTING 89 MG/DL (70-100); POTASSIUM SERUM 5.1 MEQ/L (3.5-5.1); SODIUM LEVEL 128 MEQ/L (136-145)
== END ==
PROVIDERS: ATTEND Internal Medicine
DX: E87.1 Hypo-osmolality and hyponatremia (principal)

== ENCOUNTER → 2021-08-14 | Outpatient (REF) | payer MEDICARE ==
[2021-08-14 13:26] LABS: HEMATOCRIT 32.7 % (36.0-47.0); HEMOGLOBIN 10.4 g/dl (12.0-15.5); MEAN CORPUSCULAR HEMOGLOBIN 29.5 pg (27.0-33.0); MEAN CORPUSCULAR HGB CONC 31.8 g/dl (32.0-36.5); MEAN CORPUSCULAR VOLUME 92.9 fl (80.0-96.0); PLATELET COUNT, AUTOMATED 291 10^3/uL (150-450); RED BLOOD COUNT 3.52 10^6/uL (4.00-5.40); WHITE BLOOD COUNT 6.9 10^3/uL (4.0-10.0)
[2021-08-14 14:57] LABS: ALBUMIN 3.1 GM/DL (3.2-5.2); BILIRUBIN,TOTAL 0.3 MG/DL (0.2-1.0); CALCIUM LEVEL 9.3 MG/DL (8.8-10.2); CREATININE FOR GFR 0.98 MG/DL (0.55-1.30); GLOMERULAR FILTRATION RATE 57.7 (>32); POTASSIUM SERUM 4.2 MEQ/L (3.5-5.1); TOTAL PROTEIN 7.5 GM/DL (6.4-8.2)
[2021-08-14 15:44] LABS: ALBUMIN 3.2 GM/DL (3.2-5.2); ALT/SGPT 36 U/L (12-78); BILIRUBIN,DIRECT 0.2 MG/DL (0.0-0.2); BILIRUBIN,TOTAL 0.3 MG/DL (0.2-1.0); BLOOD UREA NITROGEN 22 MG/DL (7-18); CALCIUM LEVEL 9.3 MG/DL (8.8-10.2); CARBON DIOXIDE LEVEL 27 MEQ/L (21-32); CHLORIDE LEVEL 95 MEQ/L (98-107); CREATININE FOR GFR 0.97 MG/DL (0.55-1.30); GLOMERULAR FILTRATION RATE 58.4 (>32); GLUCOSE, FASTING 150 MG/DL (70-100); NT-PRO BNP 212 PG/ML (<450); PHENYTOIN (DILANTIN) 4.9 UG/ML (10.0-20.0); POTASSIUM SERUM 4.2 MEQ/L (3.5-5.1); SODIUM LEVEL 130 MEQ/L (136-145); TOTAL PROTEIN 7.5 GM/DL (6.4-8.2)
[2021-08-14 16:11] LABS: TOTAL 25(OH) VITAMIN D 60.3 NG/ML (30.0-100.0); VITAMIN B12 LEVEL > 2000 PG/ML (247-911)
[2021-08-14 16:35] LABS: HEMOGLOBIN A1c 4.9 %
== END ==
PROVIDERS: ATTEND Internal Medicine
DX: I50.9 Heart failure, unspecified (principal); Z79.899 Other long term (current) drug therapy

== ENCOUNTER → 2021-09-09 | Outpatient (REF) | payer MEDICARE ==
[2021-09-09 10:51] LABS: BASO % 0.3 % (0.0-1.0); EOS % 0.3 % (0.0-3.0); HEMOGLOBIN 10.5 g/dl (12.0-15.5); LYMPH # 0.8 10^3/uL (1.5-5.0); LYMPH % 8.2 % (24.0-44.0); MEAN CORPUSCULAR HEMOGLOBIN 29.2 pg (27.0-33.0); MEAN CORPUSCULAR HGB CONC 31.8 g/dl (32.0-36.5); MEAN CORPUSCULAR VOLUME 91.7 fl (80.0-96.0); MONO # 0.9 10^3/uL (0.0-0.8); MONO % 9.6 % (2.0-8.0); NEUTROPHILS # 7.9 10^3/uL (1.5-8.5); PLATELET COUNT, AUTOMATED 300 10^3/uL (150-450); WHITE BLOOD COUNT 9.7 10^3/uL (4.0-10.0)
[2021-09-09 11:12] LABS: ALBUMIN 2.9 GM/DL (3.2-5.2); CREATININE FOR GFR 1.35 MG/DL (0.55-1.30); GLOMERULAR FILTRATION RATE 39.9 (>32); MAGNESIUM LEVEL 1.6 MG/DL (1.8-2.4); PHOSPHORUS LEVEL 4.2 MG/DL (2.5-4.9); POTASSIUM SERUM 3.9 MEQ/L (3.5-5.1)
[2021-09-09 11:41] LABS: PTH INTACT 10.4 PG/ML (18.5-88.0)
[2021-09-09 16:26] LABS: APPEARANCE, URINE CLOUDY (CLEAR); BACTERIA, URINE AUTO 2+ (NEGATIVE); BILIRUBIN, URINE AUTO NEGATIVE (NEGATIVE); BLOOD, URINE BLOOD 1+ (NEGATIVE); CALCIUM OXALATE CRYSTALS SMALL; COLOR, URINE AMBER (YELLOW); GLUCOSE, URINE (UA) AUTO NEGATIVE (NEGATIVE); KETONE, URINE AUTO NEGATIVE (NEGATIVE); LEUKOCYTE ESTERASE, URINE AUTO 3+ (NEGATIVE); MUCUS, URINE SMALL (NEGATIVE); NITRITE, URINE AUTO NEGATIVE (NEGATIVE); PROTEIN, URINE AUTO 1+ mg/dL (NEGATIVE); RBC, URINE AUTO 15 /HPF (0-3); SPECIFIC GRAVITY URINE AUTO 1.017 (1.002-1.035); SQUAMOUS EPITHELIAL CELL UR AU 1 /HPF (0-6); UROBILINOGEN, URINE AUTO 0.2 mg/dL (0.0-2.0); WBC, URINE AUTO TNTC /HPF (0-3)
== END ==
PROVIDERS: ATTEND Physician Assistant
DX: N18.9 Chronic kidney disease, unspecified (principal); N39.0 Urinary tract infection, site not specified

== ENCOUNTER → 2021-09-10 | Outpatient (REF) | payer MEDICARE ==
[2021-09-10 16:00] LABS: HEMATOCRIT 34.2 % (36.0-47.0); HEMOGLOBIN 10.6 g/dl (12.0-15.5); MEAN CORPUSCULAR HEMOGLOBIN 28.5 pg (27.0-33.0); MEAN CORPUSCULAR VOLUME 91.9 fl (80.0-96.0); PLATELET COUNT, AUTOMATED 309 10^3/uL (150-450); RED BLOOD COUNT 3.72 10^6/uL (4.00-5.40); WHITE BLOOD COUNT 8.7 10^3/uL (4.0-10.0)
[2021-09-10 16:18] LABS: ALBUMIN 2.8 GM/DL (3.2-5.2); BILIRUBIN,TOTAL 0.2 MG/DL (0.2-1.0); CALCIUM LEVEL 9.4 MG/DL (8.8-10.2); CREATININE FOR GFR 1.13 MG/DL (0.55-1.30); PHENYTOIN (DILANTIN) 30.4 UG/ML (10.0-20.0); POTASSIUM SERUM 4.1 MEQ/L (3.5-5.1); TOTAL PROTEIN 7.2 GM/DL (6.4-8.2)
== END ==
PROVIDERS: ATTEND Physician Assistant
DX: R89.2 Abnormal level of other drugs, medicaments and biological substances in specimens from other organs, systems and tissues (principal); Z79.899 Other long term (current) drug therapy

== ENCOUNTER → 2021-09-11 | Outpatient (REF) | payer MEDICARE ==
[2021-09-11 12:01] LABS: HEMATOCRIT 32.1 % (36.0-47.0); HEMOGLOBIN 10.3 g/dl (12.0-15.5); MEAN CORPUSCULAR HEMOGLOBIN 29.8 pg (27.0-33.0); MEAN CORPUSCULAR HGB CONC 32.1 g/dl (32.0-36.5); MEAN CORPUSCULAR VOLUME 92.8 fl (80.0-96.0); PLATELET COUNT, AUTOMATED 290 10^3/uL (150-450); RED BLOOD COUNT 3.46 10^6/uL (4.00-5.40); WHITE BLOOD COUNT 6.8 10^3/uL (4.0-10.0)
[2021-09-11 14:27] LABS: ALBUMIN 2.8 GM/DL (3.2-5.2); BILIRUBIN,TOTAL 0.3 MG/DL (0.2-1.0); CALCIUM LEVEL 9.2 MG/DL (8.8-10.2); CREATININE FOR GFR 1.03 MG/DL (0.55-1.30); GLOMERULAR FILTRATION RATE 54.5 (>32); PHENYTOIN (DILANTIN) 21.2 UG/ML (10.0-20.0); TOTAL PROTEIN 6.9 GM/DL (6.4-8.2)
== END ==
PROVIDERS: ATTEND Physician Assistant
DX: Z79.899 Other long term (current) drug therapy (principal); G40.909 Epilepsy, unspecified, not intractable, without status epilepticus

== ENCOUNTER → 2021-09-12 | Outpatient (REF) | payer MEDICARE ==
[2021-09-12 15:25] LABS: HEMATOCRIT 34.6 % (36.0-47.0); HEMOGLOBIN 10.9 g/dl (12.0-15.5); MEAN CORPUSCULAR HEMOGLOBIN 28.9 pg (27.0-33.0); MEAN CORPUSCULAR HGB CONC 31.5 g/dl (32.0-36.5); MEAN CORPUSCULAR VOLUME 91.8 fl (80.0-96.0); PLATELET COUNT, AUTOMATED 310 10^3/uL (150-450); RED BLOOD COUNT 3.77 10^6/uL (4.00-5.40)
[2021-09-12 16:25] LABS: ALBUMIN 2.8 GM/DL (3.2-5.2); ALT/SGPT 25 U/L (12-78); BILIRUBIN,TOTAL 0.2 MG/DL (0.2-1.0); BLOOD UREA NITROGEN 20 MG/DL (7-18); CALCIUM LEVEL 9.8 MG/DL (8.8-10.2); CARBON DIOXIDE LEVEL 28 MEQ/L (21-32); CHLORIDE LEVEL 100 MEQ/L (98-107); CREATININE FOR GFR 0.84 MG/DL (0.55-1.30); GLOMERULAR FILTRATION RATE > 60.0 (>32); GLUCOSE, FASTING 82 MG/DL (70-100); PHENYTOIN (DILANTIN) 15.1 UG/ML (10.0-20.0); POTASSIUM SERUM 4.3 MEQ/L (3.5-5.1); SODIUM LEVEL 134 MEQ/L (136-145); TOTAL PROTEIN 7.1 GM/DL (6.4-8.2)
== END ==
PROVIDERS: ATTEND Physician Assistant
DX: Z79.899 Other long term (current) drug therapy (principal); G40.909 Epilepsy, unspecified, not intractable, without status epilepticus

== ENCOUNTER → 2021-09-16 | Outpatient (REF) | payer MEDICARE ==
[2021-09-16 12:54] LABS: ALBUMIN 2.5 GM/DL (3.2-5.2); BLOOD UREA NITROGEN 20 MG/DL (7-18); CALCIUM LEVEL 9.3 MG/DL (8.8-10.2); CARBON DIOXIDE LEVEL 29 MEQ/L (21-32); CHLORIDE LEVEL 101 MEQ/L (98-107); CREATININE FOR GFR 0.88 MG/DL (0.55-1.30); GLOMERULAR FILTRATION RATE > 60.0 (>32); GLUCOSE, FASTING 119 MG/DL (70-100); NT-PRO BNP 214 PG/ML (<450); PHENYTOIN (DILANTIN) 12.3 UG/ML (10.0-20.0); PHOSPHORUS LEVEL 4.1 MG/DL (2.5-4.9); POTASSIUM SERUM 4.7 MEQ/L (3.5-5.1); SODIUM LEVEL 135 MEQ/L (136-145)
== END ==
PROVIDERS: ATTEND Nurse Practitioner Family
DX: I50.9 Heart failure, unspecified (principal)

== ENCOUNTER → 2021-10-07 | Outpatient (REF) | payer MEDICARE ==
[2021-10-07 12:06] LABS: PERCENT SATURATION 11.9 % (13.2-45.0)
[2021-10-07 13:08] LABS: TOTAL 25(OH) VITAMIN D 57.5 NG/ML (30.0-100.0)
[2021-10-07 13:09] LABS: PTH INTACT 33.8 PG/ML (18.5-88.0)
[2021-10-07 17:23] LABS: APPEARANCE, URINE MANUAL CLEAR (CLEAR); COLOR, URINE MANUAL LT YELLOW (YELLOW)
[2021-10-07 17:24] LABS: BILIRUBIN, URINE MANUAL NEGATIVE (NEGATIVE); BLOOD URINE MANUAL NEGATIVE (NEGATIVE); GLUCOSE, URINE (UA) MANUAL NEGATIVE (NEGATIVE); KETONE, URINE MANUAL NEGATIVE (NEGATIVE); LEUKOCYTE ESTERASE, URINE MAN NEGATIVE (NEGATIVE); NITRITE, URINE MANUAL NEGATIVE (NEGATIVE); PROTEIN, URINE MANUAL NEGATIVE (NEGATIVE); UROBILINOGEN, URINE MANUAL NORMAL (NORMAL)
== END ==
PROVIDERS: ATTEND Nurse Practitioner Family
DX: N18.30 Chronic kidney disease, stage 3 unspecified (principal); D64.9 Anemia, unspecified; E55.9 Vitamin D deficiency, unspecified; Z79.899 Other long term (current) drug therapy

== ENCOUNTER → 2021-11-20 | Outpatient (REF) | payer MEDICARE ==
[2021-11-20 11:57] LABS: HEMOGLOBIN 10.1 g/dl (12.0-15.5); MEAN CORPUSCULAR HEMOGLOBIN 28.9 pg (27.0-33.0); MEAN CORPUSCULAR HGB CONC 29.7 g/dl (32.0-36.5); MEAN CORPUSCULAR VOLUME 97.1 fl (80.0-96.0); PLATELET COUNT, AUTOMATED 245 10^3/uL (150-450); WHITE BLOOD COUNT 7.3 10^3/uL (4.0-10.0)
[2021-11-20 12:52] LABS: BLOOD UREA NITROGEN 27 MG/DL (7-18); CALCIUM LEVEL 9.3 MG/DL (8.8-10.2); CARBON DIOXIDE LEVEL 23 MEQ/L (21-32); CHLORIDE LEVEL 110 MEQ/L (98-107); CREATININE FOR GFR 0.85 MG/DL (0.55-1.30); GLOMERULAR FILTRATION RATE > 60.0 (>32); GLUCOSE, FASTING 148 MG/DL (70-100); NT-PRO BNP 364 PG/ML (<450); POTASSIUM SERUM 4.3 MEQ/L (3.5-5.1); SODIUM LEVEL 140 MEQ/L (136-145)
== END ==
PROVIDERS: ATTEND Internal Medicine
DX: I50.9 Heart failure, unspecified (principal)

== ENCOUNTER → 2022-01-13 | Outpatient (REF) | payer MEDICARE ==
[~2022-01-13] MED LIST changes: +BUSP15TA48 PO; -BUSP15TA90 PO
[2022-01-13 11:24] LABS: BASO % 0.3 % (0.0-1.0); EOS % 0.2 % (0.0-3.0); HEMATOCRIT 38.8 % (36.0-47.0); HEMOGLOBIN 11.6 g/dl (12.0-15.5); LYMPH # 0.8 10^3/uL (1.5-5.0); LYMPH % 12.7 % (24.0-44.0); MEAN CORPUSCULAR HEMOGLOBIN 29.3 pg (27.0-33.0); MEAN CORPUSCULAR HGB CONC 29.9 g/dl (32.0-36.5); MONO # 0.6 10^3/uL (0.0-0.8); MONO % 8.9 % (2.0-8.0); NEUTROPHILS # 4.9 10^3/uL (1.5-8.5); NEUTROPHILS % 77.4 % (36.0-66.0); PLATELET COUNT, AUTOMATED 262 10^3/uL (150-450); RED BLOOD COUNT 3.96 10^6/uL (4.00-5.40); WHITE BLOOD COUNT 6.3 10^3/uL (4.0-10.0)
[2022-01-13 12:03] LABS: COMPLEMENT C3 173.2 MG/DL (90.0-170.0); COMPLEMENT C4 21.3 MG/DL (12-36)
[2022-01-13 12:04] LABS: ALKALINE PHOSPHATASE 299 U/L (46-116); ALT/SGPT 35 U/L (7.0-40); AST/SGOT 28 U/L (<34); BILIRUBIN,TOTAL 0.2 MG/DL (0.3-1.2); BLOOD UREA NITROGEN 25 MG/DL (9-23); CALCIUM LEVEL 9.1 MG/DL (8.3-10.6); CARBON DIOXIDE LEVEL 26 MMOL/L (20-31); CHLORIDE LEVEL 102 MMOL/L (98-107); CREATININE FOR GFR 0.88 MG/DL (0.55-1.30); GLOMERULAR FILTRATION RATE > 60.0 (>32); GLUCOSE, FASTING 143 MG/DL (74-106); POTASSIUM SERUM 4.3 MMOL/L (3.5-5.1); SODIUM LEVEL 138 MMOL/L (136-145); TOTAL PROTEIN 7.4 G/DL (5.7-8.2)
[2022-01-13 12:22] LABS: CREATININE,RANDOM URINE 34.3 MG/DL
[2022-01-13 12:25] LABS: APPEARANCE, URINE MANUAL HAZY (CLEAR); COLOR, URINE MANUAL LT YELLOW (YELLOW); SPECIFIC GRAVITY,URINE MANUAL 1.015 (1.002-1.035)
[2022-01-13 12:26] LABS: BILIRUBIN, URINE MANUAL NEGATIVE (NEGATIVE); BLOOD URINE MANUAL TRACE (NEGATIVE); GLUCOSE, URINE (UA) MANUAL NEGATIVE (NEGATIVE); KETONE, URINE MANUAL NEGATIVE (NEGATIVE); LEUKOCYTE ESTERASE, URINE MAN POSITIVE (NEGATIVE); NITRITE, URINE MANUAL NEGATIVE (NEGATIVE); PROTEIN, URINE MANUAL NEGATIVE (NEGATIVE); UROBILINOGEN, URINE MANUAL NORMAL (NORMAL)
[2022-01-13 12:49] LABS: WBC, URINE 40-50 /hpf (0-3)
[2022-01-13 12:50] LABS: BACTERIA, URINE LARGE AMOUNT; HYALINE CAST, URINE NONE SEEN /lpf (0-1); SQUAMOUS EPITHELIAL CELL URINE LARGE AMOUNT /hpf (SMALL AMT)
[2022-01-13 12:52] LABS: ERYTHROCYTE SEDIMENTATION RATE 61 mm/hr (0-30)
== END ==
PROVIDERS: ATTEND Nurse Practitioner Family
DX: M32.9 Systemic lupus erythematosus, unspecified (principal); M06.9 Rheumatoid arthritis, unspecified; Z79.899 Other long term (current) drug therapy

== ENCOUNTER → 2022-01-14 | Outpatient (REF) | payer MEDICARE ==
[2022-01-14 19:43] LABS: APPEARANCE, URINE MANUAL HAZY (CLEAR); COLOR, URINE MANUAL YELLOW (YELLOW)
[2022-01-14 19:45] LABS: BILIRUBIN, URINE MANUAL NEGATIVE (NEGATIVE); BLOOD URINE MANUAL POSITIVE (NEGATIVE); GLUCOSE, URINE (UA) MANUAL NEGATIVE (NEGATIVE); KETONE, URINE MANUAL NEGATIVE (NEGATIVE); LEUKOCYTE ESTERASE, URINE MAN POSITIVE (NEGATIVE); NITRITE, URINE MANUAL NEGATIVE (NEGATIVE); PROTEIN, URINE MANUAL NEGATIVE (NEGATIVE); UROBILINOGEN, URINE MANUAL NORMAL (NORMAL)
[2022-01-14 19:50] LABS: BACTERIA, URINE LARGE AMOUNT; HYALINE CAST, URINE NONE SEEN /lpf (0-1); RBC, URINE NONE SEEN /hpf (0-3); SQUAMOUS EPITHELIAL CELL URINE NONE SEEN /hpf (SMALL AMT); WBC, URINE 30-40 /hpf (0-3)
== END ==
PROVIDERS: ATTEND Nurse Practitioner Family
DX: M32.9 Systemic lupus erythematosus, unspecified (principal); Z79.899 Other long term (current) drug therapy

== ENCOUNTER → 2022-01-14 | Outpatient (REF) | payer MEDICARE | LOC: M SFHCDERM 14:12 | PROVIDERS: ATTEND Nurse Practitioner Family | DX: L82.0 Inflamed seborrheic keratosis (principal) ==

== ENCOUNTER → 2022-01-22 | Outpatient (REF) | payer MEDICARE ==
[2022-01-22 10:58] LABS: HEMOGLOBIN A1c 5.2 % (4.0-6.0)
[2022-01-22 11:22] LABS: ALKALINE PHOSPHATASE 292 U/L (46-116); ALT/SGPT 35 U/L (7.0-40); AST/SGOT 29 U/L (<34); BILIRUBIN,DIRECT < 0.1 MG/DL (<0.4); BILIRUBIN,TOTAL 0.2 MG/DL (0.3-1.2); BLOOD UREA NITROGEN 26 MG/DL (9-23); CALCIUM LEVEL 9.5 MG/DL (8.3-10.6); CARBON DIOXIDE LEVEL 26 MMOL/L (20-31); CHLORIDE LEVEL 106 MMOL/L (98-107); CREATININE FOR GFR 0.99 MG/DL (0.55-1.30); GLUCOSE, FASTING 167 MG/DL (74-106); POTASSIUM SERUM 4.4 MMOL/L (3.5-5.1); SODIUM LEVEL 140 MMOL/L (136-145); TOTAL PROTEIN 7.4 G/DL (5.7-8.2)
[2022-01-22 11:23] LABS: VITAMIN B12 LEVEL 1767 PG/ML (211-911)
== END ==
PROVIDERS: ATTEND Physician Assistant
DX: I50.9 Heart failure, unspecified (principal); Z79.899 Other long term (current) drug therapy

== ENCOUNTER → 2022-01-27 | Outpatient (REF) | payer MEDICARE | PROVIDERS: ATTEND Internal Medicine | DX: R05.9 Cough, unspecified (principal) ==

== ENCOUNTER → 2022-02-17 | Outpatient (REF) | payer MEDICARE ==
[2022-02-17 11:40] LABS: HEMATOCRIT 35.1 % (36.0-47.0); HEMOGLOBIN 10.7 g/dl (12.0-15.5); MEAN CORPUSCULAR HEMOGLOBIN 29.6 pg (27.0-33.0); MEAN CORPUSCULAR HGB CONC 30.5 g/dl (32.0-36.5); MEAN CORPUSCULAR VOLUME 97.2 fl (80.0-96.0); PLATELET COUNT, AUTOMATED 261 10^3/uL (150-450); RED BLOOD COUNT 3.61 10^6/uL (4.00-5.40); WHITE BLOOD COUNT 5.8 10^3/uL (4.0-10.0)
[2022-02-17 12:00] LABS: BLOOD UREA NITROGEN 20 MG/DL (9-23); CALCIUM LEVEL 9.3 MG/DL (8.3-10.6); CARBON DIOXIDE LEVEL 25 MMOL/L (20-31); CHLORIDE LEVEL 107 MMOL/L (98-107); CREATININE FOR GFR 0.83 MG/DL (0.55-1.30); GLOMERULAR FILTRATION RATE > 60.0 (>32); GLUCOSE, FASTING 99 MG/DL (74-106); POTASSIUM SERUM 4.5 MMOL/L (3.5-5.1); SODIUM LEVEL 139 MMOL/L (136-145)
[2022-02-17 12:07] LABS: THYROID STIMULATING HORMONE 2.199 uIU/ML (0.55-4.78)
== END ==
PROVIDERS: ATTEND Physician Assistant
DX: I50.9 Heart failure, unspecified (principal); E03.9 Hypothyroidism, unspecified

== ENCOUNTER → 2022-03-18 | Outpatient (REF) | payer MEDICARE | LOC: M SFHCDERM 14:20 | PROVIDERS: ATTEND Nurse Practitioner Family | DX: L57.0 Actinic keratosis (principal) ==

== ENCOUNTER → 2022-04-07 | Outpatient (REF) | payer MEDICARE ==
[2022-04-08 11:05] LABS: APPEARANCE, URINE TURBID (CLEAR); BACTERIA, URINE AUTO 2+ (NEGATIVE); BILIRUBIN, URINE AUTO NEGATIVE (NEGATIVE); BLOOD, URINE BLOOD NEGATIVE (NEGATIVE); COLOR, URINE AMBER (YELLOW); GLUCOSE, URINE (UA) AUTO NEGATIVE (NEGATIVE); KETONE, URINE AUTO NEGATIVE (NEGATIVE); LEUKOCYTE ESTERASE, URINE AUTO 3+ (NEGATIVE); MUCUS, URINE SMALL (NEGATIVE); NITRITE, URINE AUTO NEGATIVE (NEGATIVE); PROTEIN, URINE AUTO 1+ mg/dL (NEGATIVE); RBC, URINE AUTO 79 /HPF (0-3); SPECIFIC GRAVITY URINE AUTO 1.023 (1.002-1.035); SQUAMOUS EPITHELIAL CELL UR AU 1 /HPF (0-6); TRANSITIONAL EPITHELIAL AUTO 1 /HPF; UROBILINOGEN, URINE AUTO 0.2 mg/dL (0.0-2.0); WBC, URINE AUTO TNTC /HPF (0-3)
== END ==
PROVIDERS: ATTEND Nurse Practitioner Family
DX: N39.0 Urinary tract infection, site not specified (principal)

== ENCOUNTER → 2022-04-08 | Outpatient (REF) | payer MEDICARE ==
[2022-04-08 14:10] LABS: BASO % 0.4 % (0.0-1.0); EOS % 0.3 % (0.0-3.0); HEMATOCRIT 34.7 % (36.0-47.0); HEMOGLOBIN 10.9 g/dl (12.0-15.5); LYMPH # 0.8 10^3/uL (1.5-5.0); LYMPH % 11.2 % (24.0-44.0); MEAN CORPUSCULAR HEMOGLOBIN 30.7 pg (27.0-33.0); MEAN CORPUSCULAR HGB CONC 31.4 g/dl (32.0-36.5); MEAN CORPUSCULAR VOLUME 97.7 fl (80.0-96.0); MONO # 0.7 10^3/uL (0.0-0.8); MONO % 9.5 % (2.0-8.0); NEUTROPHILS # 5.4 10^3/uL (1.5-8.5); NEUTROPHILS % 77.9 % (36.0-66.0); PLATELET COUNT, AUTOMATED 242 10^3/uL (150-450); RED BLOOD COUNT 3.55 10^6/uL (4.00-5.40)
[2022-04-08 14:17] LABS: PHENYTOIN (DILANTIN) 9.2 UG/ML (10.0-20.0)
[2022-04-08 14:41] LABS: ALBUMIN 2.7 G/DL (3.2-5.2); BILIRUBIN,TOTAL 0.2 MG/DL (0.3-1.2); CALCIUM LEVEL 9.1 MG/DL (8.3-10.6); GLOMERULAR FILTRATION RATE 56.2 (>32); POTASSIUM SERUM 4.7 MMOL/L (3.5-5.1)
== END ==
PROVIDERS: ATTEND Nurse Practitioner Family
DX: R41.82 Altered mental status, unspecified (principal)

== ENCOUNTER → 2022-04-29 | Outpatient (REF) | payer MEDICARE ==
[2022-04-29 11:32] LABS: APPEARANCE, URINE HAZY (CLEAR); BACTERIA, URINE AUTO 1+ (NEGATIVE); BILIRUBIN, URINE AUTO NEGATIVE (NEGATIVE); BLOOD, URINE BLOOD 1+ (NEGATIVE); COLOR, URINE YELLOW (YELLOW); GLUCOSE, URINE (UA) AUTO NEGATIVE (NEGATIVE); KETONE, URINE AUTO NEGATIVE (NEGATIVE); LEUKOCYTE ESTERASE, URINE AUTO 2+ (NEGATIVE); MUCUS, URINE SMALL (NEGATIVE); NITRITE, URINE AUTO NEGATIVE (NEGATIVE); PROTEIN, URINE AUTO NEGATIVE (NEGATIVE); RBC, URINE AUTO 4 /HPF (0-3); SPECIFIC GRAVITY URINE AUTO 1.009 (1.002-1.035); SQUAMOUS EPITHELIAL CELL UR AU 6 /HPF (0-6); UROBILINOGEN, URINE AUTO 0.2 mg/dL (0.0-2.0); WBC, URINE AUTO 20 /HPF (0-3)
== END ==
PROVIDERS: ATTEND Nurse Practitioner Family
DX: N18.9 Chronic kidney disease, unspecified (principal)

== ENCOUNTER → 2022-05-21 | Outpatient (REF) | payer MEDICARE ==
[2022-05-21 09:37] LABS: HEMATOCRIT 33.4 % (36.0-47.0); HEMOGLOBIN 10.2 g/dl (12.0-15.5); MEAN CORPUSCULAR HEMOGLOBIN 29.8 pg (27.0-33.0); MEAN CORPUSCULAR HGB CONC 30.5 g/dl (32.0-36.5); MEAN CORPUSCULAR VOLUME 97.7 fl (80.0-96.0); PLATELET COUNT, AUTOMATED 194 10^3/uL (150-450); RED BLOOD COUNT 3.42 10^6/uL (4.00-5.40); WHITE BLOOD COUNT 6.1 10^3/uL (4.0-10.0)
[2022-05-21 09:52] LABS: BLOOD UREA NITROGEN 22 MG/DL (9-23); CALCIUM LEVEL 8.4 MG/DL (8.3-10.6); CARBON DIOXIDE LEVEL 24 MMOL/L (20-31); CHLORIDE LEVEL 108 MMOL/L (98-107); CREATININE FOR GFR 0.83 MG/DL (0.55-1.30); GLOMERULAR FILTRATION RATE > 60.0 (>32); GLUCOSE, FASTING 101 MG/DL (74-106); POTASSIUM SERUM 4.4 MMOL/L (3.5-5.1); SODIUM LEVEL 141 MMOL/L (136-145)
== END ==
PROVIDERS: ATTEND Internal Medicine
DX: N18.9 Chronic kidney disease, unspecified (principal); I50.9 Heart failure, unspecified

== ENCOUNTER → 2022-06-10 | Outpatient (REF) | payer MEDICARE ==
[2022-06-10 16:04] LABS: APPEARANCE, URINE CLOUDY (CLEAR); BACTERIA, URINE AUTO 3+ (NEGATIVE); BILIRUBIN, URINE AUTO NEGATIVE (NEGATIVE); BLOOD, URINE BLOOD 1+ (NEGATIVE); COLOR, URINE YELLOW (YELLOW); GLUCOSE, URINE (UA) AUTO NEGATIVE (NEGATIVE); KETONE, URINE AUTO NEGATIVE (NEGATIVE); LEUKOCYTE ESTERASE, URINE AUTO 3+ (NEGATIVE); MUCUS, URINE SMALL (NEGATIVE); NITRITE, URINE AUTO NEGATIVE (NEGATIVE); PROTEIN, URINE AUTO 1+ mg/dL (NEGATIVE); RBC, URINE AUTO 40 /HPF (0-3); SPECIFIC GRAVITY URINE AUTO 1.016 (1.002-1.035); SQUAMOUS EPITHELIAL CELL UR AU 7 /HPF (0-6); UROBILINOGEN, URINE AUTO 0.2 mg/dL (0.0-2.0); WBC, URINE AUTO TNTC /HPF (0-3)
== END ==
PROVIDERS: ATTEND Nurse Practitioner Family
DX: J06.9 Acute upper respiratory infection, unspecified (principal); R63.8 Other symptoms and signs concerning food and fluid intake; Z87.440 Personal history of urinary (tract) infections; Z79.899 Other long term (current) drug therapy

== ENCOUNTER → 2022-06-11 | Outpatient (REF) | payer MEDICARE ==
[2022-06-11 15:56] LABS: APPEARANCE, URINE CLOUDY (CLEAR); BACTERIA, URINE AUTO NEGATIVE (NEGATIVE); BILIRUBIN, URINE AUTO NEGATIVE (NEGATIVE); BLOOD, URINE BLOOD 1+ (NEGATIVE); COLOR, URINE YELLOW (YELLOW); GLUCOSE, URINE (UA) AUTO NEGATIVE (NEGATIVE); KETONE, URINE AUTO NEGATIVE (NEGATIVE); LEUKOCYTE ESTERASE, URINE AUTO 3+ (NEGATIVE); MUCUS, URINE SMALL (NEGATIVE); NITRITE, URINE AUTO NEGATIVE (NEGATIVE); PROTEIN, URINE AUTO NEGATIVE (NEGATIVE); RBC, URINE AUTO 10 /HPF (0-3); SPECIFIC GRAVITY URINE AUTO 1.013 (1.002-1.035); SQUAMOUS EPITHELIAL CELL UR AU 0 /HPF (0-6); UROBILINOGEN, URINE AUTO 0.2 mg/dL (0.0-2.0); WBC, URINE AUTO TNTC /HPF (0-3)
== END ==
PROVIDERS: ATTEND Internal Medicine
DX: R41.0 Disorientation, unspecified (principal)

== ENCOUNTER → 2022-06-11 | Outpatient (REF) | payer MEDICARE ==
[2022-06-11 11:25] LABS: BASO % 0.4 % (0.0-1.0); EOS # 0.1 10^3/uL (0.0-0.5); EOS % 1.1 % (0.0-3.0); HEMATOCRIT 34.2 % (36.0-47.0); HEMOGLOBIN 10.5 g/dl (12.0-15.5); LYMPH # 0.7 10^3/uL (1.5-5.0); LYMPH % 12.9 % (24.0-44.0); MEAN CORPUSCULAR HEMOGLOBIN 29.8 pg (27.0-33.0); MEAN CORPUSCULAR HGB CONC 30.7 g/dl (32.0-36.5); MEAN CORPUSCULAR VOLUME 97.2 fl (80.0-96.0); MONO # 0.5 10^3/uL (0.0-0.8); MONO % 9.4 % (2.0-8.0); NEUTROPHILS # 4.1 10^3/uL (1.5-8.5); NEUTROPHILS % 75.5 % (36.0-66.0); PLATELET COUNT, AUTOMATED 199 10^3/uL (150-450); RED BLOOD COUNT 3.52 10^6/uL (4.00-5.40); WHITE BLOOD COUNT 5.4 10^3/uL (4.0-10.0)
[2022-06-11 12:04] LABS: BLOOD UREA NITROGEN 23 MG/DL (9-23); CALCIUM LEVEL 8.5 MG/DL (8.3-10.6); CARBON DIOXIDE LEVEL 26 MMOL/L (20-31); CHLORIDE LEVEL 105 MMOL/L (98-107); CREATININE FOR GFR 0.84 MG/DL (0.55-1.30); GLOMERULAR FILTRATION RATE > 60.0 (>32); GLUCOSE, FASTING 135 MG/DL (74-106); POTASSIUM SERUM 4.5 MMOL/L (3.5-5.1); SODIUM LEVEL 138 MMOL/L (136-145)
== END ==
PROVIDERS: ATTEND Nurse Practitioner Family
DX: J06.9 Acute upper respiratory infection, unspecified (principal)

== ENCOUNTER → 2022-07-16 | Outpatient (REF) | payer MEDICARE ==
[2022-07-16 11:29] LABS: HEMOGLOBIN A1c 5.3 % (4.0-6.0)
[2022-07-16 11:46] LABS: ALBUMIN 2.8 G/DL (3.2-5.2); ALKALINE PHOSPHATASE 320 U/L (46-116); ALT/SGPT 58 U/L (7.0-40); AST/SGOT 50 U/L (<34); BILIRUBIN,DIRECT 0.1 MG/DL (<0.4); BILIRUBIN,TOTAL 0.2 MG/DL (0.3-1.2); BLOOD UREA NITROGEN 22 MG/DL (9-23); CALCIUM LEVEL 8.9 MG/DL (8.3-10.6); CARBON DIOXIDE LEVEL 26 MMOL/L (20-31); CHLORIDE LEVEL 104 MMOL/L (98-107); CREATININE FOR GFR 0.93 MG/DL (0.55-1.30); GLOMERULAR FILTRATION RATE > 60.0 (>32); GLUCOSE, FASTING 119 MG/DL (74-106); POTASSIUM SERUM 4.2 MMOL/L (3.5-5.1); SODIUM LEVEL 139 MMOL/L (136-145)
[2022-07-16 11:49] LABS: TOTAL 25(OH) VITAMIN D 40.6 NG/ML (20.0-100.0)
[2022-07-16 11:53] LABS: VITAMIN B12 LEVEL 1367 PG/ML (211-911)
== END ==
PROVIDERS: ATTEND Internal Medicine
DX: N18.9 Chronic kidney disease, unspecified (principal); Z79.899 Other long term (current) drug therapy

== ENCOUNTER → 2022-08-25 | Outpatient (REF) | payer MEDICARE ==
[~2022-08-25] MED LIST changes: -HYDR200T3 PO; +HYDR200T46 PO
[2022-08-25 09:26] LABS: HEMATOCRIT 33.7 % (36.0-47.0); HEMOGLOBIN 10.3 g/dl (12.0-15.5); MEAN CORPUSCULAR HEMOGLOBIN 29.9 pg (27.0-33.0); MEAN CORPUSCULAR HGB CONC 30.6 g/dl (32.0-36.5); PLATELET COUNT, AUTOMATED 187 10^3/uL (150-450); RED BLOOD COUNT 3.44 10^6/uL (4.00-5.40); WHITE BLOOD COUNT 6.9 10^3/uL (4.0-10.0)
[2022-08-25 09:51] LABS: BLOOD UREA NITROGEN 25 MG/DL (9-23); CALCIUM LEVEL 9.1 MG/DL (8.3-10.6); CARBON DIOXIDE LEVEL 20 MMOL/L (20-31); CHLORIDE LEVEL 112 MMOL/L (98-107); CREATININE FOR GFR 0.75 MG/DL (0.55-1.30); GLOMERULAR FILTRATION RATE > 60.0 (>32); GLUCOSE, FASTING 76 MG/DL (74-106); POTASSIUM SERUM 4.1 MMOL/L (3.5-5.1); SODIUM LEVEL 141 MMOL/L (136-145)
[2022-08-25 09:53] LABS: THYROID STIMULATING HORMONE 3.916 uIU/ML (0.55-4.78)
== END ==
PROVIDERS: ATTEND Internal Medicine
DX: I50.9 Heart failure, unspecified (principal)

== ENCOUNTER → 2022-10-08 | Outpatient (REF) | payer MEDICARE ==
[2022-10-08 09:21] LABS: BASO % 0.5 % (0.0-1.0); EOS # 0.1 10^3/uL (0.0-0.5); EOS % 0.8 % (0.0-3.0); HEMATOCRIT 30.8 % (36.0-47.0); HEMOGLOBIN 9.5 g/dl (12.0-15.5); LYMPH # 1.1 10^3/uL (1.5-5.0); LYMPH % 17.9 % (24.0-44.0); MEAN CORPUSCULAR HEMOGLOBIN 30.2 pg (27.0-33.0); MEAN CORPUSCULAR HGB CONC 30.8 g/dl (32.0-36.5); MEAN CORPUSCULAR VOLUME 97.8 fl (80.0-96.0); MONO # 0.8 10^3/uL (0.0-0.8); MONO % 13.2 % (2.0-8.0); NEUTROPHILS # 4.1 10^3/uL (1.5-8.5); NEUTROPHILS % 67.1 % (36.0-66.0); PLATELET COUNT, AUTOMATED 163 10^3/uL (150-450); RED BLOOD COUNT 3.15 10^6/uL (4.00-5.40); WHITE BLOOD COUNT 6.1 10^3/uL (4.0-10.0)
[2022-10-08 09:42] LABS: ALBUMIN 2.4 G/DL (3.2-5.2); BLOOD UREA NITROGEN 25 MG/DL (9-23); CALCIUM LEVEL 8.1 MG/DL (8.3-10.6); CARBON DIOXIDE LEVEL 24 MMOL/L (20-31); CHLORIDE LEVEL 111 MMOL/L (98-107); CREATININE FOR GFR 0.86 MG/DL (0.55-1.30); GLOMERULAR FILTRATION RATE > 60.0 (>32); GLUCOSE, FASTING 74 MG/DL (74-106); PHOSPHORUS LEVEL 3.5 MG/DL (2.4-5.1); POTASSIUM SERUM 4.2 MMOL/L (3.5-5.1); SODIUM LEVEL 143 MMOL/L (136-145); TOTAL 25(OH) VITAMIN D 26.4 NG/ML (20.0-100.0)
[2022-10-08 11:05] LABS: APPEARANCE, URINE HAZY (CLEAR); BACTERIA, URINE AUTO 3+ (NEGATIVE); BILIRUBIN, URINE AUTO NEGATIVE (NEGATIVE); BLOOD, URINE BLOOD 1+ (NEGATIVE); COLOR, URINE YELLOW (YELLOW); GLUCOSE, URINE (UA) AUTO NEGATIVE (NEGATIVE); KETONE, URINE AUTO NEGATIVE (NEGATIVE); LEUKOCYTE ESTERASE, URINE AUTO TRACE (NEGATIVE); MUCUS, URINE SMALL (NEGATIVE); NITRITE, URINE AUTO NEGATIVE (NEGATIVE); PROTEIN, URINE AUTO NEGATIVE (NEGATIVE); RBC, URINE AUTO 2 /HPF (0-3); SPECIFIC GRAVITY URINE AUTO 1.014 (1.002-1.035); SQUAMOUS EPITHELIAL CELL UR AU 0 /HPF (0-6); UROBILINOGEN, URINE AUTO 0.2 mg/dL (0.0-2.0); WBC, URINE AUTO 15 /HPF (0-3)
[2022-10-08 11:20] LABS: PTH INTACT 38.9 PG/ML (18.5-88.0)
== END ==
PROVIDERS: ATTEND Nurse Practitioner Family
DX: N18.30 Chronic kidney disease, stage 3 unspecified (principal); Z79.899 Other long term (current) drug therapy

== ENCOUNTER → 2022-11-19 | Outpatient (REF) | payer MEDICARE ==
[~2022-11-19] MED LIST changes: -OXYB5TAB10; -OXYB5TAB10 PO; +OXYB5TAB11; +OXYB5TAB11 PO
[2022-11-19 11:29] LABS: BASO % 0.5 % (0.0-1.0); EOS # 0.1 10^3/uL (0.0-0.5); EOS % 2.4 % (0.0-3.0); HEMATOCRIT 35.6 % (36.0-47.0); LYMPH # 1.4 10^3/uL (1.5-5.0); LYMPH % 22.8 % (24.0-44.0); MEAN CORPUSCULAR HEMOGLOBIN 30.3 pg (27.0-33.0); MEAN CORPUSCULAR HGB CONC 30.9 g/dl (32.0-36.5); MEAN CORPUSCULAR VOLUME 98.1 fl (80.0-96.0); MONO # 0.6 10^3/uL (0.0-0.8); MONO % 10.3 % (2.0-8.0); NEUTROPHILS # 3.8 10^3/uL (1.5-8.5); NEUTROPHILS % 63.5 % (36.0-66.0); PLATELET COUNT, AUTOMATED 220 10^3/uL (150-450); RED BLOOD COUNT 3.63 10^6/uL (4.00-5.40); WHITE BLOOD COUNT 5.9 10^3/uL (4.0-10.0)
[2022-11-19 11:38] LABS: ERYTHROCYTE SEDIMENTATION RATE 73 mm/hr (0-30)
[2022-11-19 12:03] LABS: COMPLEMENT C3 136.9 MG/DL (90.0-170.0)
[2022-11-19 12:04] LABS: ALBUMIN 2.8 G/DL (3.2-5.2); ALKALINE PHOSPHATASE 286 U/L (46-116); ALT/SGPT 39 U/L (7.0-40); AST/SGOT 33 U/L (<34); BILIRUBIN,TOTAL 0.2 MG/DL (0.3-1.2); BLOOD UREA NITROGEN 25 MG/DL (9-23); CALCIUM LEVEL 8.4 MG/DL (8.3-10.6); CARBON DIOXIDE LEVEL 22 MMOL/L (20-31); CHLORIDE LEVEL 110 MMOL/L (98-107); COMPLEMENT C4 15.6 MG/DL (12-36); CREATININE FOR GFR 0.85 MG/DL (0.55-1.30); GLOMERULAR FILTRATION RATE > 60.0 (>32); GLUCOSE, FASTING 115 MG/DL (74-106); POTASSIUM SERUM 4.6 MMOL/L (3.5-5.1); SODIUM LEVEL 141 MMOL/L (136-145); TOTAL PROTEIN 6.7 G/DL (5.7-8.2)
[2022-11-19 16:17] LABS: APPEARANCE, URINE HAZY (CLEAR); BACTERIA, URINE AUTO 2+ (NEGATIVE); BILIRUBIN, URINE AUTO NEGATIVE (NEGATIVE); BLOOD, URINE BLOOD NEGATIVE (NEGATIVE); COLOR, URINE YELLOW (YELLOW); GLUCOSE, URINE (UA) AUTO NEGATIVE (NEGATIVE); KETONE, URINE AUTO NEGATIVE (NEGATIVE); LEUKOCYTE ESTERASE, URINE AUTO 3+ (NEGATIVE); MUCUS, URINE SMALL (NEGATIVE); NITRITE, URINE AUTO POSITIVE (NEGATIVE); PROTEIN, URINE AUTO NEGATIVE (NEGATIVE); RBC, URINE AUTO 5 /HPF (0-3); SPECIFIC GRAVITY URINE AUTO 1.014 (1.002-1.035); SQUAMOUS EPITHELIAL CELL UR AU 0 /HPF (0-6); UROBILINOGEN, URINE AUTO 0.2 mg/dL (0.0-2.0); WBC, URINE AUTO 96 /HPF (0-3)
[2022-11-21 15:07] LABS: ANTI DS-DNA AB Positive (Negative); COMPLEMENT TOTAL (CH50) > 60 U/mL (>41)
== END ==
PROVIDERS: ATTEND Nurse Practitioner Family
DX: M32.9 Systemic lupus erythematosus, unspecified (principal); M06.9 Rheumatoid arthritis, unspecified; I50.9 Heart failure, unspecified

== ENCOUNTER → 2022-11-20 | Outpatient (REF) | payer MEDICARE | PROVIDERS: ATTEND Nurse Practitioner Family | DX: N39.0 Urinary tract infection, site not specified (principal) ==

== ENCOUNTER → 2023-01-15 | Outpatient (REF) | payer MEDICARE | PROVIDERS: ATTEND Nurse Practitioner Family | DX: R19.7 Diarrhea, unspecified (principal) ==

== ENCOUNTER → 2023-01-16 | Outpatient (REF) | payer MEDICARE ==
[2023-01-16 10:03] LABS: BASO % 0.3 % (0.0-1.0); EOS # 0.1 10^3/uL (0.0-0.5); EOS % 1.5 % (0.0-3.0); HEMATOCRIT 32.5 % (36.0-47.0); HEMOGLOBIN 10.3 g/dl (12.0-15.5); LYMPH # 0.9 10^3/uL (1.5-5.0); LYMPH % 13.9 % (24.0-44.0); MEAN CORPUSCULAR HEMOGLOBIN 30.6 pg (27.0-33.0); MEAN CORPUSCULAR HGB CONC 31.7 g/dl (32.0-36.5); MEAN CORPUSCULAR VOLUME 96.4 fl (80.0-96.0); MONO # 0.7 10^3/uL (0.0-0.8); MONO % 10.3 % (2.0-8.0); NEUTROPHILS # 4.9 10^3/uL (1.5-8.5); NEUTROPHILS % 73.3 % (36.0-66.0); PLATELET COUNT, AUTOMATED 198 10^3/uL (150-450); RED BLOOD COUNT 3.37 10^6/uL (4.00-5.40); WHITE BLOOD COUNT 6.7 10^3/uL (4.0-10.0)
[2023-01-16 10:31] LABS: BLOOD UREA NITROGEN 20 MG/DL (9-23); CALCIUM LEVEL 8.2 MG/DL (8.3-10.6); CARBON DIOXIDE LEVEL 25 MMOL/L (20-31); CHLORIDE LEVEL 106 MMOL/L (98-107); CREATININE FOR GFR 0.78 MG/DL (0.55-1.30); GLOMERULAR FILTRATION RATE > 60.0 (>32); GLUCOSE, FASTING 119 MG/DL (74-106); POTASSIUM SERUM 4.6 MMOL/L (3.5-5.1); SODIUM LEVEL 138 MMOL/L (136-145)
== END ==
PROVIDERS: ATTEND Nurse Practitioner Family
DX: R19.7 Diarrhea, unspecified (principal)

== ENCOUNTER → 2023-01-21 | Outpatient (REF) | payer MEDICARE ==
[2023-01-21 12:24] LABS: ALBUMIN 2.8 G/DL (3.2-5.2); ALKALINE PHOSPHATASE 263 U/L (46-116); ALT/SGPT 33 U/L (7.0-40); AST/SGOT 33 U/L (<34); BILIRUBIN,DIRECT < 0.1 MG/DL (<0.4); BILIRUBIN,TOTAL 0.2 MG/DL (0.3-1.2); BLOOD UREA NITROGEN 20 MG/DL (9-23); CALCIUM LEVEL 8.7 MG/DL (8.3-10.6); CARBON DIOXIDE LEVEL 22 MMOL/L (20-31); CHLORIDE LEVEL 106 MMOL/L (98-107); CREATININE FOR GFR 0.85 MG/DL (0.55-1.30); GLOMERULAR FILTRATION RATE > 60.0 (>32); GLUCOSE, FASTING 108 MG/DL (74-106); SODIUM LEVEL 138 MMOL/L (136-145); TOTAL PROTEIN 6.9 G/DL (5.7-8.2)
[2023-01-21 12:25] LABS: TOTAL 25(OH) VITAMIN D 26.2 NG/ML (20.0-100.0); VITAMIN B12 LEVEL 1600 PG/ML (211-911)
== END ==
PROVIDERS: ATTEND Internal Medicine
DX: N18.9 Chronic kidney disease, unspecified (principal); Z79.899 Other long term (current) drug therapy

== ENCOUNTER → 2023-02-27 | Outpatient (REF) | payer MEDICARE ==
[2023-02-27 11:32] LABS: HEMATOCRIT 32.5 % (36.0-47.0); HEMOGLOBIN 10.1 g/dl (12.0-15.5); MEAN CORPUSCULAR HEMOGLOBIN 29.9 pg (27.0-33.0); MEAN CORPUSCULAR HGB CONC 31.1 g/dl (32.0-36.5); MEAN CORPUSCULAR VOLUME 96.2 fl (80.0-96.0); PLATELET COUNT, AUTOMATED 230 10^3/uL (150-450); RED BLOOD COUNT 3.38 10^6/uL (4.00-5.40); WHITE BLOOD COUNT 6.3 10^3/uL (4.0-10.0)
[2023-02-27 12:01] LABS: BLOOD UREA NITROGEN 21 MG/DL (9-23); CALCIUM LEVEL 8.4 MG/DL (8.3-10.6); CARBON DIOXIDE LEVEL 22 MMOL/L (20-31); CHLORIDE LEVEL 109 MMOL/L (98-107); CREATININE FOR GFR 0.72 MG/DL (0.55-1.30); GLOMERULAR FILTRATION RATE > 60.0 (>32); GLUCOSE, FASTING 106 MG/DL (74-106); POTASSIUM SERUM 4.6 MMOL/L (3.5-5.1); SODIUM LEVEL 138 MMOL/L (136-145)
[2023-02-27 12:03] LABS: THYROID STIMULATING HORMONE 4.312 uIU/ML (0.55-4.78)
== END ==
PROVIDERS: ATTEND Internal Medicine
DX: I50.9 Heart failure, unspecified (principal)

== ENCOUNTER → 2023-04-08 | Outpatient (REF) | payer MEDICARE ==
[~2023-04-08] MED LIST changes: -MIRA1POW3 PO; +MIRA33506 PO; -OXYB5TAB11; -OXYB5TAB11 PO; +OXYB5TAB14; +OXYB5TAB14 PO
[2023-04-08 10:10] LABS: HEMATOCRIT 32.3 % (36.0-47.0); HEMOGLOBIN 10.3 g/dl (12.0-15.5); MEAN CORPUSCULAR HEMOGLOBIN 30.4 pg (27.0-33.0); MEAN CORPUSCULAR HGB CONC 31.9 g/dl (32.0-36.5); MEAN CORPUSCULAR VOLUME 95.3 fl (80.0-96.0); PLATELET COUNT, AUTOMATED 189 10^3/uL (150-450); RED BLOOD COUNT 3.39 10^6/uL (4.00-5.40); WHITE BLOOD COUNT 7.1 10^3/uL (4.0-10.0)
[2023-04-08 10:30] LABS: ALBUMIN 2.3 G/DL (3.2-5.2); BLOOD UREA NITROGEN 20 MG/DL (9-23); CALCIUM LEVEL 8.3 MG/DL (8.3-10.6); CARBON DIOXIDE LEVEL 24 MMOL/L (20-31); CHLORIDE LEVEL 111 MMOL/L (98-107); GLOMERULAR FILTRATION RATE > 60.0 (>32); GLUCOSE, FASTING 100 MG/DL (74-106); PHOSPHORUS LEVEL 3.8 MG/DL (2.4-5.1); POTASSIUM SERUM 4.2 MMOL/L (3.5-5.1); SODIUM LEVEL 142 MMOL/L (136-145)
[2023-04-08 10:57] LABS: PTH INTACT 44.2 PG/ML (18.5-88.0)
== END ==
PROVIDERS: ATTEND Internal Medicine
DX: N18.9 Chronic kidney disease, unspecified (principal); Z79.899 Other long term (current) drug therapy

== ENCOUNTER → 2023-05-04 | Outpatient (REF) | payer MEDICARE ==
[2023-05-04 10:58] LABS: APPEARANCE, URINE CLOUDY (CLEAR); BACTERIA, URINE AUTO 2+ (NEGATIVE); BILIRUBIN, URINE AUTO NEGATIVE (NEGATIVE); BLOOD, URINE BLOOD NEGATIVE (NEGATIVE); COLOR, URINE YELLOW (YELLOW); GLUCOSE, URINE (UA) AUTO NEGATIVE (NEGATIVE); KETONE, URINE AUTO NEGATIVE (NEGATIVE); LEUKOCYTE ESTERASE, URINE AUTO 3+ (NEGATIVE); MUCUS, URINE SMALL (NEGATIVE); NITRITE, URINE AUTO POSITIVE (NEGATIVE); PROTEIN, URINE AUTO 2+ mg/dL (NEGATIVE); RBC, URINE AUTO 3 /HPF (0-3); SPECIFIC GRAVITY URINE AUTO 1.015 (1.002-1.035); SQUAMOUS EPITHELIAL CELL UR AU 13 /HPF (0-6); UROBILINOGEN, URINE AUTO 0.2 mg/dL (0.0-2.0); WBC, URINE AUTO 57 /HPF (0-3)
[2023-05-04 11:00] LABS: BASO % 0.4 % (0.0-1.0); EOS # 0.1 10^3/uL (0.0-0.5); EOS % 1.6 % (0.0-3.0); HEMATOCRIT 30.9 % (36.0-47.0); HEMOGLOBIN 9.6 g/dl (12.0-15.5); LYMPH # 0.7 10^3/uL (1.5-5.0); LYMPH % 13.6 % (24.0-44.0); MEAN CORPUSCULAR HEMOGLOBIN 30.3 pg (27.0-33.0); MEAN CORPUSCULAR HGB CONC 31.1 g/dl (32.0-36.5); MEAN CORPUSCULAR VOLUME 97.5 fl (80.0-96.0); MONO # 0.5 10^3/uL (0.0-0.8); MONO % 8.9 % (2.0-8.0); NEUTROPHILS # 3.9 10^3/uL (1.5-8.5); NEUTROPHILS % 75.1 % (36.0-66.0); PLATELET COUNT, AUTOMATED 177 10^3/uL (150-450); RED BLOOD COUNT 3.17 10^6/uL (4.00-5.40); WHITE BLOOD COUNT 5.2 10^3/uL (4.0-10.0)
[2023-05-04 11:05] LABS: ERYTHROCYTE SEDIMENTATION RATE 79 mm/hr (0-30)
[2023-05-04 11:27] LABS: CREATININE,RANDOM URINE 56.1 MG/DL
[2023-05-04 11:30] LABS: ALBUMIN 2.1 G/DL (3.2-5.2); ALKALINE PHOSPHATASE 255 U/L (46-116); ALT/SGPT 39 U/L (7.0-40); AST/SGOT 47 U/L (<34); BILIRUBIN,TOTAL 0.2 MG/DL (0.3-1.2); BLOOD UREA NITROGEN 22 MG/DL (9-23); CALCIUM LEVEL 7.9 MG/DL (8.3-10.6); CARBON DIOXIDE LEVEL 24 MMOL/L (20-31); CHLORIDE LEVEL 113 MMOL/L (98-107); COMPLEMENT C3 139.6 MG/DL (90.0-170.0); COMPLEMENT C4 13.3 MG/DL (12-36); CREATININE FOR GFR 0.69 MG/DL (0.55-1.30); GLOMERULAR FILTRATION RATE > 60.0 (>32); GLUCOSE, FASTING 110 MG/DL (74-106); POTASSIUM SERUM 4.3 MMOL/L (3.5-5.1); RHEUMATOID FACTOR QUANT 10.5 IU/ML (<14); SODIUM LEVEL 142 MMOL/L (136-145); TOTAL PROTEIN 5.7 G/DL (5.7-8.2)
[2023-05-04 12:02] LABS: HEPATITIS B CORE ANTIBODY IGM NEGATIVE (NEGATIVE); HEPATITIS C VIRUS ABY INDEX < 0.02 INDEX (<0.8)
[2023-05-07 08:12] LABS: ANTI DS-DNA AB Positive (Negative)
[2023-05-07 17:07] LABS: SELENIUM LEVEL BLOOD 151 ug/L (100-340)
== END ==
PROVIDERS: ATTEND Internal Medicine
DX: Z01.89 Encounter for other specified special examinations (principal); M32.9 Systemic lupus erythematosus, unspecified; M06.9 Rheumatoid arthritis, unspecified; K75.4 Autoimmune hepatitis; Z79.899 Other long term (current) drug therapy

== ENCOUNTER → 2023-05-18 | Outpatient (REF) | payer MEDICARE ==
[2023-05-18 09:15] LABS: HEMATOCRIT 31.3 % (36.0-47.0); HEMOGLOBIN 9.8 g/dl (12.0-15.5); MEAN CORPUSCULAR HEMOGLOBIN 30.1 pg (27.0-33.0); MEAN CORPUSCULAR HGB CONC 31.3 g/dl (32.0-36.5); PLATELET COUNT, AUTOMATED 172 10^3/uL (150-450); RED BLOOD COUNT 3.26 10^6/uL (4.00-5.40); WHITE BLOOD COUNT 4.8 10^3/uL (4.0-10.0)
[2023-05-18 09:39] LABS: BLOOD UREA NITROGEN 25 MG/DL (9-23); CALCIUM LEVEL 8.3 MG/DL (8.3-10.6); CARBON DIOXIDE LEVEL 23 MMOL/L (20-31); CHLORIDE LEVEL 111 MMOL/L (98-107); CREATININE FOR GFR 0.73 MG/DL (0.55-1.30); GLOMERULAR FILTRATION RATE > 60.0 (>32); GLUCOSE, FASTING 122 MG/DL (74-106); POTASSIUM SERUM 4.1 MMOL/L (3.5-5.1); SODIUM LEVEL 141 MMOL/L (136-145)
== END ==
PROVIDERS: ATTEND Internal Medicine
DX: N18.9 Chronic kidney disease, unspecified (principal); I50.9 Heart failure, unspecified

== ENCOUNTER → 2023-06-09 | Outpatient (REF) | payer MEDICARE ==
[2023-06-09 13:23] LABS: HEMATOCRIT 35.8 % (36.0-47.0); HEMOGLOBIN 11.3 g/dl (12.0-15.5); MEAN CORPUSCULAR HEMOGLOBIN 29.8 pg (27.0-33.0); MEAN CORPUSCULAR HGB CONC 31.6 g/dl (32.0-36.5); MEAN CORPUSCULAR VOLUME 94.5 fl (80.0-96.0); PLATELET COUNT, AUTOMATED 248 10^3/uL (150-450); RED BLOOD COUNT 3.79 10^6/uL (4.00-5.40); WHITE BLOOD COUNT 6.3 10^3/uL (4.0-10.0)
[2023-06-09 13:48] LABS: BLOOD UREA NITROGEN 27 MG/DL (9-23); CALCIUM LEVEL 8.6 MG/DL (8.3-10.6); CARBON DIOXIDE LEVEL 20 MMOL/L (20-31); CHLORIDE LEVEL 110 MMOL/L (98-107); CREATININE FOR GFR 0.76 MG/DL (0.55-1.30); GLOMERULAR FILTRATION RATE > 60.0 (>32); GLUCOSE, FASTING 104 MG/DL (74-106); POTASSIUM SERUM 5.1 MMOL/L (3.5-5.1); SODIUM LEVEL 140 MMOL/L (136-145)
== END ==
PROVIDERS: ATTEND Nurse Practitioner Adult Health
DX: R53.83 Other fatigue (principal); R41.82 Altered mental status, unspecified

== ENCOUNTER → 2023-07-20 | Outpatient (REF) | payer MEDICARE ==
[2023-07-20 13:00] LABS: HEMOGLOBIN A1c 5.1 % (4.0-6.0); TOTAL 25(OH) VITAMIN D 23.8 NG/ML (20.0-100.0); VITAMIN B12 LEVEL 1741 PG/ML (211-911)
[2023-07-20 13:01] LABS: ALBUMIN 2.1 G/DL (3.2-5.2); ALKALINE PHOSPHATASE 272 U/L (46-116); ALT/SGPT 35 U/L (7.0-40); AST/SGOT 42 U/L (<34); BILIRUBIN,DIRECT < 0.1 MG/DL (<0.4); BILIRUBIN,TOTAL 0.2 MG/DL (0.3-1.2); BLOOD UREA NITROGEN 28 MG/DL (9-23); CALCIUM LEVEL 8.1 MG/DL (8.3-10.6); CARBON DIOXIDE LEVEL 23 MMOL/L (20-31); CHLORIDE LEVEL 112 MMOL/L (98-107); CREATININE FOR GFR 0.83 MG/DL (0.55-1.30); GLOMERULAR FILTRATION RATE > 60.0 (>32); GLUCOSE, FASTING 104 MG/DL (74-106); SODIUM LEVEL 142 MMOL/L (136-145); TOTAL PROTEIN 5.9 G/DL (5.7-8.2)
== END ==
PROVIDERS: ATTEND Nurse Practitioner Adult Health
DX: M32.9 Systemic lupus erythematosus, unspecified (principal); I50.9 Heart failure, unspecified; Z79.899 Other long term (current) drug therapy

== ENCOUNTER → 2023-08-19 | Outpatient (REF) | payer MEDICARE | PROVIDERS: ATTEND Internal Medicine | DX: N18.9 Chronic kidney disease, unspecified (principal); Z79.899 Other long term (current) drug therapy ==

== ENCOUNTER → 2023-09-07 | Outpatient (REF) | payer MEDICARE ==
[2023-09-07 12:19] LABS: HEMATOCRIT 34.7 % (36.0-47.0); MEAN CORPUSCULAR HEMOGLOBIN 30.9 pg (27.0-33.0); MEAN CORPUSCULAR HGB CONC 31.7 g/dl (32.0-36.5); MEAN CORPUSCULAR VOLUME 97.5 fl (80.0-96.0); PLATELET COUNT, AUTOMATED 253 10^3/uL (150-450); RED BLOOD COUNT 3.56 10^6/uL (4.00-5.40); WHITE BLOOD COUNT 6.9 10^3/uL (4.0-10.0)
[2023-09-07 12:42] LABS: BLOOD UREA NITROGEN 25 MG/DL (9-23); CALCIUM LEVEL 8.4 MG/DL (8.3-10.6); CARBON DIOXIDE LEVEL 21 MMOL/L (20-31); CHLORIDE LEVEL 112 MMOL/L (98-107); CREATININE FOR GFR 0.82 MG/DL (0.55-1.30); GLOMERULAR FILTRATION RATE > 60.0 (>32); GLUCOSE, FASTING 90 MG/DL (74-106); POTASSIUM SERUM 4.7 MMOL/L (3.5-5.1); SODIUM LEVEL 141 MMOL/L (136-145)
== END ==
PROVIDERS: ATTEND Nurse Practitioner Adult Health
DX: R82.998 Other abnormal findings in urine (principal); Z79.899 Other long term (current) drug therapy

== ENCOUNTER → 2023-09-21 | Outpatient (REF) | payer MEDICARE ==
[2023-09-21 11:32] LABS: HEMATOCRIT 33.1 % (36.0-47.0); HEMOGLOBIN 10.6 g/dl (12.0-15.5); MEAN CORPUSCULAR HEMOGLOBIN 31.1 pg (27.0-33.0); MEAN CORPUSCULAR VOLUME 97.1 fl (80.0-96.0); PLATELET COUNT, AUTOMATED 241 10^3/uL (150-450); RED BLOOD COUNT 3.41 10^6/uL (4.00-5.40); WHITE BLOOD COUNT 7.2 10^3/uL (4.0-10.0)
[2023-09-21 12:04] LABS: BLOOD UREA NITROGEN 23 MG/DL (9-23); CALCIUM LEVEL 8.5 MG/DL (8.3-10.6); CARBON DIOXIDE LEVEL 21 MMOL/L (20-31); CHLORIDE LEVEL 114 MMOL/L (98-107); CREATININE FOR GFR 0.81 MG/DL (0.55-1.30); GLOMERULAR FILTRATION RATE > 60.0 (>32); GLUCOSE, FASTING 100 MG/DL (74-106); POTASSIUM SERUM 4.3 MMOL/L (3.5-5.1); SODIUM LEVEL 139 MMOL/L (136-145)
== END ==
PROVIDERS: ATTEND Internal Medicine
DX: I50.9 Heart failure, unspecified (principal)

== ENCOUNTER → 2023-10-16 | Outpatient (REF) | payer MEDICARE ==
[2023-10-16 15:42] LABS: HEMATOCRIT 32.6 % (36.0-47.0); HEMOGLOBIN 10.3 g/dl (12.0-15.5); MEAN CORPUSCULAR HEMOGLOBIN 31.1 pg (27.0-33.0); MEAN CORPUSCULAR HGB CONC 31.6 g/dl (32.0-36.5); MEAN CORPUSCULAR VOLUME 98.5 fl (80.0-96.0); PLATELET COUNT, AUTOMATED 223 10^3/uL (150-450); RED BLOOD COUNT 3.31 10^6/uL (4.00-5.40); WHITE BLOOD COUNT 5.8 10^3/uL (4.0-10.0)
[2023-10-16 16:14] LABS: BLOOD UREA NITROGEN 30 MG/DL (9-23); CALCIUM LEVEL 8.2 MG/DL (8.3-10.6); CARBON DIOXIDE LEVEL 19 MMOL/L (20-31); CHLORIDE LEVEL 114 MMOL/L (98-107); CREATININE FOR GFR 0.86 MG/DL (0.55-1.30); GLOMERULAR FILTRATION RATE > 60.0 (>32); GLUCOSE, FASTING 160 MG/DL (74-106); POTASSIUM SERUM 4.4 MMOL/L (3.5-5.1); SODIUM LEVEL 141 MMOL/L (136-145)
== END ==
PROVIDERS: ATTEND Nurse Practitioner Adult Health
DX: L03.90 Cellulitis, unspecified (principal)

== ENCOUNTER → 2023-10-21 | Outpatient (REF) | payer MEDICARE ==
[2023-10-21 10:19] LABS: CALCIUM LEVEL 8.3 MG/DL (8.3-10.6); CREATININE FOR GFR 0.97 MG/DL (0.55-1.30); GLOMERULAR FILTRATION RATE 58.1 (>32); POTASSIUM SERUM 4.3 MMOL/L (3.5-5.1)
== END ==
PROVIDERS: ATTEND Nurse Practitioner Adult Health
DX: L03.90 Cellulitis, unspecified (principal)

== ENCOUNTER → 2023-11-02 | Outpatient (REF) | payer MEDICARE ==
[2023-11-02 10:35] LABS: APPEARANCE, URINE HAZY (CLEAR); BACTERIA, URINE AUTO NEGATIVE (NEGATIVE); BILIRUBIN, URINE AUTO NEGATIVE (NEGATIVE); BLOOD, URINE BLOOD 1+ (NEGATIVE); COLOR, URINE YELLOW (YELLOW); GLUCOSE, URINE (UA) AUTO NEGATIVE (NEGATIVE); KETONE, URINE AUTO NEGATIVE (NEGATIVE); LEUKOCYTE ESTERASE, URINE AUTO 2+ (NEGATIVE); NITRITE, URINE AUTO NEGATIVE (NEGATIVE); PROTEIN, URINE AUTO 3+ mg/dL (NEGATIVE); RBC, URINE AUTO 22 /HPF (0-3); SPECIFIC GRAVITY URINE AUTO 1.023 (1.002-1.035); SQUAMOUS EPITHELIAL CELL UR AU 8 /HPF (0-6); UROBILINOGEN, URINE AUTO 0.2 mg/dL (0.0-2.0); WBC, URINE AUTO 9 /HPF (0-3)
[2023-11-02 10:57] LABS: CREATININE,RANDOM URINE 92.7 MG/DL
[2023-11-02 11:00] LABS: TOTAL PROTEIN,RANDOM URINE 457.1 MG/DL (0.0-14.0)
[2023-11-02 12:51] LABS: BASO % 0.3 % (0.0-1.0); EOS # 0.1 10^3/uL (0.0-0.5); EOS % 0.8 % (0.0-3.0); HEMATOCRIT 32.9 % (36.0-47.0); HEMOGLOBIN 10.4 g/dl (12.0-15.5); LYMPH # 0.7 10^3/uL (1.5-5.0); LYMPH % 11.6 % (24.0-44.0); MEAN CORPUSCULAR HEMOGLOBIN 31.2 pg (27.0-33.0); MEAN CORPUSCULAR HGB CONC 31.6 g/dl (32.0-36.5); MEAN CORPUSCULAR VOLUME 98.8 fl (80.0-96.0); MONO # 0.5 10^3/uL (0.0-0.8); MONO % 8.2 % (2.0-8.0); NEUTROPHILS # 4.8 10^3/uL (1.5-8.5); NEUTROPHILS % 78.8 % (36.0-66.0); PLATELET COUNT, AUTOMATED 248 10^3/uL (150-450); RED BLOOD COUNT 3.33 10^6/uL (4.00-5.40); WHITE BLOOD COUNT 6.1 10^3/uL (4.0-10.0)
[2023-11-02 13:15] LABS: ERYTHROCYTE SEDIMENTATION RATE 75 mm/hr (0-30)
[2023-11-02 13:19] LABS: ALBUMIN 2.3 G/DL (3.2-5.2); ALKALINE PHOSPHATASE 300 U/L (46-116); ALT/SGPT 39 U/L (7.0-40); AST/SGOT 42 U/L (<34); BILIRUBIN,TOTAL 0.2 MG/DL (0.3-1.2); BLOOD UREA NITROGEN 27 MG/DL (9-23); CARBON DIOXIDE LEVEL 21 MMOL/L (20-31); CHLORIDE LEVEL 113 MMOL/L (98-107); COMPLEMENT C3 133.8 MG/DL (90.0-170.0); COMPLEMENT C4 17.8 MG/DL (12-36); CREATININE FOR GFR 0.85 MG/DL (0.55-1.30); GLOMERULAR FILTRATION RATE > 60.0 (>32); GLUCOSE, FASTING 93 MG/DL (74-106); POTASSIUM SERUM 4.7 MMOL/L (3.5-5.1); SODIUM LEVEL 141 MMOL/L (136-145); TOTAL 25(OH) VITAMIN D 19.1 NG/ML (20.0-100.0); TOTAL PROTEIN 6.6 G/DL (5.7-8.2)
== END ==
PROVIDERS: ATTEND Nurse Practitioner Adult Health
DX: M32.9 Systemic lupus erythematosus, unspecified (principal); Z79.899 Other long term (current) drug therapy

== ENCOUNTER → 2023-11-25 | Outpatient (REF) | payer MEDICARE | PROVIDERS: ATTEND Nurse Practitioner Adult Health | DX: N18.9 Chronic kidney disease, unspecified (principal) ==

== ENCOUNTER → 2023-12-06 | Outpatient (REF) | payer MEDICARE ==
[2023-12-06 13:04] LABS: BLOOD UREA NITROGEN 27 MG/DL (9-23); CALCIUM LEVEL 8.5 MG/DL (8.3-10.6); CARBON DIOXIDE LEVEL 22 MMOL/L (20-31); CHLORIDE LEVEL 113 MMOL/L (98-107); CREATININE FOR GFR 0.92 MG/DL (0.55-1.30); GLOMERULAR FILTRATION RATE > 60.0 (>32); GLUCOSE, FASTING 105 MG/DL (74-106); POTASSIUM SERUM 4.6 MMOL/L (3.5-5.1); SODIUM LEVEL 142 MMOL/L (136-145)
[2023-12-06 13:09] LABS: HEMATOCRIT 30.1 % (36.0-47.0); HEMOGLOBIN 9.6 g/dl (12.0-15.5); MEAN CORPUSCULAR HEMOGLOBIN 31.4 pg (27.0-33.0); MEAN CORPUSCULAR HGB CONC 31.9 g/dl (32.0-36.5); MEAN CORPUSCULAR VOLUME 98.4 fl (80.0-96.0); PLATELET COUNT, AUTOMATED 215 10^3/uL (150-450); RED BLOOD COUNT 3.06 10^6/uL (4.00-5.40); WHITE BLOOD COUNT 5.5 10^3/uL (4.0-10.0)
== END ==
PROVIDERS: ATTEND Nurse Practitioner Family
DX: R60.9 Edema, unspecified (principal)

== ENCOUNTER → 2023-12-07 | Outpatient (REF) | payer MEDICARE ==
[2023-12-07 17:49] LABS: APPEARANCE, URINE CLOUDY (CLEAR); BACTERIA, URINE AUTO 3+ (NEGATIVE); BILIRUBIN, URINE AUTO NEGATIVE (NEGATIVE); BLOOD, URINE BLOOD 2+ (NEGATIVE); COLOR, URINE YELLOW (YELLOW); GLUCOSE, URINE (UA) AUTO NEGATIVE (NEGATIVE); KETONE, URINE AUTO NEGATIVE (NEGATIVE); LEUKOCYTE ESTERASE, URINE AUTO 3+ (NEGATIVE); NITRITE, URINE AUTO NEGATIVE (NEGATIVE); PROTEIN, URINE AUTO 2+ mg/dL (NEGATIVE); RBC, URINE AUTO 35 /HPF (0-3); SPECIFIC GRAVITY URINE AUTO 1.014 (1.002-1.035); SQUAMOUS EPITHELIAL CELL UR AU 4 /HPF (0-6); UROBILINOGEN, URINE AUTO 0.2 mg/dL (0.0-2.0); WBC, URINE AUTO 46 /HPF (0-3)
== END ==
PROVIDERS: ATTEND Nurse Practitioner Adult Health
DX: R41.0 Disorientation, unspecified (principal)

== ENCOUNTER → 2023-12-15 | Outpatient (REF) | payer MEDICARE ==
[2023-12-15 11:05] LABS: APPEARANCE, URINE HAZY (CLEAR); BACTERIA, URINE AUTO 2+ (NEGATIVE); BILIRUBIN, URINE AUTO NEGATIVE (NEGATIVE); BLOOD, URINE BLOOD NEGATIVE (NEGATIVE); COLOR, URINE YELLOW (YELLOW); GLUCOSE, URINE (UA) AUTO NEGATIVE (NEGATIVE); KETONE, URINE AUTO NEGATIVE (NEGATIVE); LEUKOCYTE ESTERASE, URINE AUTO 2+ (NEGATIVE); MUCUS, URINE SMALL (NEGATIVE); NITRITE, URINE AUTO NEGATIVE (NEGATIVE); PROTEIN, URINE AUTO 3+ mg/dL (NEGATIVE); RBC, URINE AUTO 12 /HPF (0-3); SPECIFIC GRAVITY URINE AUTO 1.022 (1.002-1.035); SQUAMOUS EPITHELIAL CELL UR AU 0 /HPF (0-6); UROBILINOGEN, URINE AUTO 0.2 mg/dL (0.0-2.0); WBC, URINE AUTO 77 /HPF (0-3)
== END ==
PROVIDERS: ATTEND Nurse Practitioner Adult Health
DX: N39.0 Urinary tract infection, site not specified (principal)

== ENCOUNTER → 2024-01-20 | Outpatient (REF) | payer MEDICARE ==
[2024-01-20 13:21] LABS: HEMATOCRIT 31.8 % (36.0-47.0); HEMOGLOBIN 10.1 g/dl (12.0-15.5); MEAN CORPUSCULAR HEMOGLOBIN 31.3 pg (27.0-33.0); MEAN CORPUSCULAR HGB CONC 31.8 g/dl (32.0-36.5); MEAN CORPUSCULAR VOLUME 98.5 fl (80.0-96.0); PLATELET COUNT, AUTOMATED 279 10^3/uL (150-450); RED BLOOD COUNT 3.23 10^6/uL (4.00-5.40); WHITE BLOOD COUNT 8.6 10^3/uL (4.0-10.0)
[2024-01-20 13:56] LABS: ALKALINE PHOSPHATASE 298 U/L (35-104); ALT/SGPT 45 U/L (7.0-40); AST/SGOT 49 U/L (<34); BILIRUBIN,DIRECT < 0.1 MG/DL (<0.4); BILIRUBIN,TOTAL < 0.2 MG/DL (0.3-1.2); BLOOD UREA NITROGEN 32 MG/DL (9-23); CALCIUM LEVEL 8.7 MG/DL (8.3-10.6); CARBON DIOXIDE LEVEL 16 MMOL/L (20-31); CHLORIDE LEVEL 113 MMOL/L (98-107); CREATININE FOR GFR 0.99 MG/DL (0.55-1.30); GLOMERULAR FILTRATION RATE 56.8 (>32); GLUCOSE, FASTING 90 MG/DL (74-106); POTASSIUM SERUM 5.1 MMOL/L (3.5-5.1); SODIUM LEVEL 142 MMOL/L (136-145); TOTAL 25(OH) VITAMIN D 16.6 NG/ML (20.0-100.0); TOTAL PROTEIN 6.4 G/DL (5.7-8.2)
[2024-01-20 13:57] LABS: VITAMIN B12 LEVEL 1812 PG/ML (211-911)
== END ==
PROVIDERS: ATTEND Nurse Practitioner Adult Health
DX: I50.9 Heart failure, unspecified (principal); N18.9 Chronic kidney disease, unspecified; Z79.899 Other long term (current) drug therapy

== ENCOUNTER → 2024-01-21 | Outpatient (REF) | payer MEDICARE ==
[2024-01-21 14:30] LABS: CALCIUM LEVEL 8.7 MG/DL (8.3-10.6); CREATININE FOR GFR 1.01 MG/DL (0.55-1.30); GLOMERULAR FILTRATION RATE 55.5 (>32); POTASSIUM SERUM 5.1 MMOL/L (3.5-5.1)
== END ==
PROVIDERS: ATTEND Internal Medicine
DX: I50.9 Heart failure, unspecified (principal)

== ENCOUNTER → 2024-02-24 | Outpatient (REF) | payer MEDICARE | PROVIDERS: ATTEND Internal Medicine | DX: E03.9 Hypothyroidism, unspecified (principal) ==

== ENCOUNTER → 2024-03-07 | Outpatient (REF) | payer MEDICARE ==
[~2024-03-07] MED LIST changes: +ATEN25TA PO; +BISA10SU27 PR; +BUSP10TA79 PO; +CALC500C16 PO; +DICL20GE TOP; +FLEEENE12 PR; +MACR100C43 PO; +MILKSUS3 PO; +SERT-141 PO; +SIME125T PO; +SODI15SS PO
[2024-03-07 10:48] LABS: BASO % 0.3 % (0.0-1.0); EOS % 0.1 % (0.0-3.0); HEMATOCRIT 32.3 % (36.0-47.0); HEMOGLOBIN 9.9 g/dl (12.0-15.5); LYMPH # 1.1 10^3/uL (1.5-5.0); LYMPH % 11.2 % (24.0-44.0); MEAN CORPUSCULAR HEMOGLOBIN 31.4 pg (27.0-33.0); MEAN CORPUSCULAR HGB CONC 30.7 g/dl (32.0-36.5); MEAN CORPUSCULAR VOLUME 102.5 fl (80.0-96.0); MONO # 0.7 10^3/uL (0.0-0.8); MONO % 6.9 % (2.0-8.0); NEUTROPHILS # 8.3 10^3/uL (1.5-8.5); NEUTROPHILS % 80.9 % (36.0-66.0); PLATELET COUNT, AUTOMATED 248 10^3/uL (150-450); RED BLOOD COUNT 3.15 10^6/uL (4.00-5.40); WHITE BLOOD COUNT 10.2 10^3/uL (4.0-10.0)
[2024-03-07 10:55] LABS: ERYTHROCYTE SEDIMENTATION RATE 77 mm/hr (0-30)
[2024-03-07 11:24] LABS: C REACTIVE PROTEIN QUANTITATIV 7.62 MG/DL (<1.0); COMPLEMENT C3 149.1 MG/DL (90.0-170.0); COMPLEMENT C4 24.3 MG/DL (12-36)
[2024-03-07 11:46] LABS: ALBUMIN 2.2 G/DL (3.2-5.2); ALKALINE PHOSPHATASE 286 U/L (35-104); ALT/SGPT 48 U/L (7.0-40); AST/SGOT 36 U/L (<34); BILIRUBIN,TOTAL < 0.2 MG/DL (0.3-1.2); BLOOD UREA NITROGEN 102 MG/DL (9-23); CALCIUM LEVEL 8.3 MG/DL (8.3-10.6); CARBON DIOXIDE LEVEL < 10.0 MMOL/L (20-31); CHLORIDE LEVEL 118 MMOL/L (98-107); CREATININE FOR GFR 2.45 MG/DL (0.55-1.30); GLOMERULAR FILTRATION RATE 19.9 (>32); GLUCOSE, FASTING 81 MG/DL (74-106); POTASSIUM SERUM 6.9 MMOL/L (3.5-5.1); SODIUM LEVEL 143 MMOL/L (136-145); TOTAL PROTEIN 6.7 G/DL (5.7-8.2)
[2024-03-07 18:05] LABS: APPEARANCE, URINE TURBID (CLEAR); BACTERIA, URINE AUTO 3+ (NEGATIVE); BILIRUBIN, URINE AUTO NEGATIVE (NEGATIVE); BLOOD, URINE BLOOD 1+ (NEGATIVE); COLOR, URINE YELLOW (YELLOW); GLUCOSE, URINE (UA) AUTO NEGATIVE (NEGATIVE); KETONE, URINE AUTO NEGATIVE (NEGATIVE); LEUKOCYTE ESTERASE, URINE AUTO 2+ (NEGATIVE); NITRITE, URINE AUTO NEGATIVE (NEGATIVE); PROTEIN, URINE AUTO 3+ mg/dL (NEGATIVE); RBC, URINE AUTO 48 /HPF (0-3); SPECIFIC GRAVITY URINE AUTO 1.015 (1.002-1.035); SQUAMOUS EPITHELIAL CELL UR AU 6 /HPF (0-6); UROBILINOGEN, URINE AUTO 0.2 mg/dL (0.0-2.0); WBC, URINE AUTO TNTC /HPF (0-3)
[2024-03-07 18:21] LABS: CREATININE,RANDOM URINE 62.8 MG/DL
[2024-03-07 18:23] LABS: TOTAL PROTEIN,RANDOM URINE 523.9 MG/DL (0.0-14.0)
[2024-03-10 16:32] LABS: COMPLEMENT TOTAL (CH50) > 60 U/mL (31-60)
== END ==
PROVIDERS: ATTEND Nurse Practitioner Family
DX: M32.9 Systemic lupus erythematosus, unspecified (principal); M06.9 Rheumatoid arthritis, unspecified; Z79.899 Other long term (current) drug therapy

== ENCOUNTER → 2024-03-08 | Outpatient (REF) | payer MEDICARE ==
[2024-03-08 12:57] LABS: BASO % 0.1 % (0.0-1.0); EOS % 0.3 % (0.0-3.0); HEMATOCRIT 26.9 % (36.0-47.0); HEMOGLOBIN 8.4 g/dl (12.0-15.5); LYMPH # 0.8 10^3/uL (1.5-5.0); LYMPH % 6.3 % (24.0-44.0); MEAN CORPUSCULAR HEMOGLOBIN 31.7 pg (27.0-33.0); MEAN CORPUSCULAR HGB CONC 31.2 g/dl (32.0-36.5); MEAN CORPUSCULAR VOLUME 101.5 fl (80.0-96.0); MONO # 1.1 10^3/uL (0.0-0.8); MONO % 8.3 % (2.0-8.0); NEUTROPHILS # 11.2 10^3/uL (1.5-8.5); NEUTROPHILS % 84.4 % (36.0-66.0); PLATELET COUNT, AUTOMATED 196 10^3/uL (150-450); RED BLOOD COUNT 2.65 10^6/uL (4.00-5.40); WHITE BLOOD COUNT 13.2 10^3/uL (4.0-10.0)
[2024-03-08 13:50] LABS: BLOOD UREA NITROGEN 101 MG/DL (9-23); CALCIUM LEVEL 6.8 MG/DL (8.3-10.6); CARBON DIOXIDE LEVEL < 10.0 MMOL/L (20-31); CHLORIDE LEVEL 120 MMOL/L (98-107); CREATININE FOR GFR 2.33 MG/DL (0.55-1.30); GLOMERULAR FILTRATION RATE 21.1 (>32); GLUCOSE, FASTING 146 MG/DL (74-106); POTASSIUM SERUM 4.9 MMOL/L (3.5-5.1); SODIUM LEVEL 145 MMOL/L (136-145)
== END ==
PROVIDERS: ATTEND Nurse Practitioner Family
DX: N17.9 Acute kidney failure, unspecified (principal); E86.0 Dehydration; R33.9 Retention of urine, unspecified; E87.5 Hyperkalemia

== ENCOUNTER 2024-03-09 11:04 | Inpatient (IN) | payer MEDICARE ==
[~2024-03-09] VITALS: Ht 157.5 cm; Wt 46.0 kg
[~2024-03-09 11:04] MED LIST changes: -ATEN25TA PO; -BISA10SU27 PR; -BUSP10TA79 PO; -CALC500C16 PO; -DICL20GE TOP; -FLEEENE12 PR; -MACR100C43 PO; -MILKSUS3 PO; -SERT-141 PO; -SIME125T PO; -SODI15SS PO
[2024-03-09 11:57] LABS: VENOUS BASE EXCESS -20.1 (-2.0-2.0); VENOUS HCO3 8.2 MMOL/L (23.0-27.0); VENOUS O2 SATURATION 98.7 % (60.0-80.0); VENOUS PARTIAL PRESSURE CO2 27.7 mmHg (38.0-50.0); VENOUS PH 7.089 UNITS (7.330-7.430); VENOUS STANDARD HCO3 9.3 MMOL/L
[2024-03-09] MEDS ORDERED: MAALOX 30 ML SUSP *UDC PO PRN (12:15)
[2024-03-09] MEDS ORDERED: MOM 30ML SUSPENSION UDC PO PRN (12:15)
[2024-03-09 13:06] LABS: IONIZED CALCIUM 4.5 MG/DL (4.5-5.3)
[2024-03-09] MEDS ORDERED: BISA10SU27 PR (13:55)
[2024-03-09] MEDS ORDERED: DICL20GE TOP (13:55)
[2024-03-09] MEDS ORDERED: SERT-141 PO (13:55)
[2024-03-09] MEDS ORDERED: CALC500C16 PO (13:55)
[2024-03-09] MEDS ORDERED: FLEEENE12 PR (13:55)
[2024-03-09] MEDS ORDERED: SODI15SS PO (13:55)
[2024-03-09] MEDS ORDERED: SIME125T PO (13:55)
[2024-03-09] MEDS ORDERED: MACR100C43 PO (13:55)
[2024-03-09] MEDS ORDERED: BUSP10TA79 PO (13:55)
[2024-03-09] MEDS ORDERED: MILKSUS3 PO (13:55)
[2024-03-09] MEDS ORDERED: HOME MED LIST COMPLETE! XX SCH ×2 (14:00→14:40)
[2024-03-09] MEDS ORDERED: SODIUM BICARBONATE 75 MEQ in NS 0.45% 1,000 ML IV SCH (14:00)
[2024-03-09 14:20] LABS: MAGNESIUM LEVEL 1.7 MG/DL (1.8-2.4); URIC ACID 5.8 MG/DL (3.1-7.8)
[2024-03-09] MEDS ORDERED: ATEN25TA PO (14:38)
[2024-03-09 15:43] LABS: IRON (FE) 43 UG/DL (50-170); PERCENT SATURATION 24.4 % (13.2-45.0); TOTAL IRON BINDING CAPACITY 176 UG/DL (250-425)
[2024-03-09 15:45] LABS: FOLATE 8.85 NG/ML (>5.4)
[2024-03-09 15:48] LABS: BLOOD UREA NITROGEN 88 MG/DL (9-23); CALCIUM LEVEL 6.9 MG/DL (8.3-10.6); CARBON DIOXIDE LEVEL < 10.0 MMOL/L (20-31); CHLORIDE LEVEL 119 MMOL/L (98-107); CREATININE FOR GFR 2.27 MG/DL (0.55-1.30); GLOMERULAR FILTRATION RATE 21.7 (>32); GLUCOSE, FASTING 117 MG/DL (74-106); POTASSIUM SERUM 4.4 MMOL/L (3.5-5.1); SODIUM LEVEL 149 MMOL/L (136-145); VITAMIN B12 LEVEL > 2000 PG/ML (211-911)
[2024-03-09 16:15] VITALS: BP 138/62; TEMP 98.2; O2SAT 98
[2024-03-09] MEDS: SODIUM BICARBONATE 100 MEQ in D5W 1,000 ML IV SCH (16:45)
[2024-03-09] MEDS: LevoFLOXacin 750 MG TABLET PO ONE (16:48)
[2024-03-09] MEDS ORDERED: BISACODYL 10MG SUPP PR PRN (17:55)
[2024-03-09] MEDS: PERCOCET 5MG/325MG TAB PO PRN (18:21)
[2024-03-09 19:40] LABS: CREATININE,RANDOM URINE 49.4 MG/DL; TOTAL PROTEIN,RANDOM URINE 254.3 MG/DL (0.0-14.0)
[2024-03-09 20:00] VITALS: BP 130/60; TEMP 97.7; O2SAT 93
[2024-03-09] MEDS: busPIRone 10 MG TAB PO SCH (22:08)
[2024-03-09] MEDS: RAMELTEON 8 MG TAB (ROZEREM) PO PRN (22:08)
[2024-03-09] MEDS: CALCIUM CARBONATE 500 MG CHEW U/D PO SCH (22:08)
[2024-03-09] MEDS: PHENYTOIN ER 100 MG CAP PO SCH (22:09)
[2024-03-09] MEDS: atenoloL 25 MG TAB PO SCH (22:10)
[2024-03-09] MEDS: SERTRALINE HCL 50 MG TAB PO SCH (22:10)
[2024-03-09] MEDS: LIDOCAINE 5% (LIDODERM) PATCH TD PRN (22:11)
[2024-03-09] MEDS: HEPARIN SOD (PORCINE) 5000UNITS/ML 1ML VIAL/SYRINGE SC SCH (22:11)
[2024-03-09] MEDS: SENOKOT S TAB PO SCH (22:11)
[2024-03-09 23:31] VITALS: BP 135/68; TEMP 97.9; O2SAT 99
[2024-03-10] VITALS (10 sets, daily range): BP systolic 102–123; BP diastolic 53–67; TEMP 97.2–98.1; O2SAT 95–97
[2024-03-10 06:57] LABS: BASO % 0.1 % (0.0-1.0); EOS # 0.1 10^3/uL (0.0-0.5); EOS % 0.5 % (0.0-3.0); LYMPH # 0.8 10^3/uL (1.5-5.0); LYMPH % 8.2 % (24.0-44.0); MEAN CORPUSCULAR HEMOGLOBIN 31.8 pg (27.0-33.0); MEAN CORPUSCULAR HGB CONC 32.9 g/dl (32.0-36.5); MEAN CORPUSCULAR VOLUME 96.8 fl (80.0-96.0); MONO # 0.9 10^3/uL (0.0-0.8); MONO % 9.3 % (2.0-8.0); NEUTROPHILS # 7.4 10^3/uL (1.5-8.5); NEUTROPHILS % 81.2 % (36.0-66.0); PLATELET COUNT, AUTOMATED 150 10^3/uL (150-450); RED BLOOD COUNT 2.17 10^6/uL (4.00-5.40); WHITE BLOOD COUNT 9.2 10^3/uL (4.0-10.0)
[2024-03-10 07:06] LABS: HEMOGLOBIN 6.9 g/dl (12.0-15.5)
[2024-03-10] MEDS: MAG SULF 1GM/100ML (MAG RUN) 1 GM in IV 1 EA IV SCH (08:12)
[2024-03-10] MEDS: HYDROXYCHLOROQUINE 200 MG TAB PO SCH (08:13)
[2024-03-10] MEDS: predniSONE 10MG TAB PO SCH (08:13)
[2024-03-10 08:20] LABS: ALBUMIN 1.5 G/DL (3.2-5.2); ALKALINE PHOSPHATASE 196 U/L (35-104); ALT/SGPT 22 U/L (7.0-40); AST/SGOT 22 U/L (<34); BILIRUBIN,TOTAL < 0.2 MG/DL (0.3-1.2); BLOOD UREA NITROGEN 87 MG/DL (9-23); CALCIUM LEVEL 6.6 MG/DL (8.3-10.6); CARBON DIOXIDE LEVEL 12 MMOL/L (20-31); CHLORIDE LEVEL 119 MMOL/L (98-107); CREATININE FOR GFR 2.21 MG/DL (0.55-1.30); GLOMERULAR FILTRATION RATE 22.4 (>32); GLUCOSE, FASTING 111 MG/DL (74-106); POTASSIUM SERUM 3.7 MMOL/L (3.5-5.1); SODIUM LEVEL 146 MMOL/L (136-145)
[2024-03-10] MEDS: LIDOCAINE 5% (LIDODERM) PATCH TD SCH (11:10)
[2024-03-10] MEDS: ACETAMINOPHEN 325 MG TAB PO PRN (13:12)
[2024-03-10] MEDS: LEVOTHYROXINE 50MCG TABLET (0.05MG) PO SCH (13:12)
[2024-03-10 16:16] LABS: BASO % 0.1 % (0.0-1.0); EOS % 0.1 % (0.0-3.0); HEMATOCRIT 26.1 % (36.0-47.0); HEMOGLOBIN 8.7 g/dl (12.0-15.5); LYMPH # 0.4 10^3/uL (1.5-5.0); LYMPH % 4.7 % (24.0-44.0); MEAN CORPUSCULAR HGB CONC 33.3 g/dl (32.0-36.5); MONO # 0.4 10^3/uL (0.0-0.8); MONO % 4.2 % (2.0-8.0); NEUTROPHILS # 8.4 10^3/uL (1.5-8.5); NEUTROPHILS % 90.5 % (36.0-66.0); PLATELET COUNT, AUTOMATED 132 10^3/uL (150-450); RED BLOOD COUNT 2.72 10^6/uL (4.00-5.40); WHITE BLOOD COUNT 9.3 10^3/uL (4.0-10.0)
[2024-03-10] MEDS: MAGNESIUM OXIDE 400MG TAB (MAG-OX) PO SCH (17:27)
[2024-03-11] VITALS (9 sets, daily range): BP systolic 105–143; BP diastolic 52–78; TEMP 97.3–97.9; O2SAT 94–96
[2024-03-11 06:38] LABS: CALCIUM LEVEL 6.1 MG/DL (8.3-10.6); CREATININE FOR GFR 2.03 MG/DL (0.55-1.30); GLOMERULAR FILTRATION RATE 24.7 (>32); MAGNESIUM LEVEL 2.2 MG/DL (1.8-2.4)
[2024-03-11 08:14] LABS: BASO % 0.1 % (0.0-1.0); EOS # 0.1 10^3/uL (0.0-0.5); EOS % 0.7 % (0.0-3.0); HEMATOCRIT 23.1 % (36.0-47.0); HEMOGLOBIN 7.8 g/dl (12.0-15.5); LYMPH # 0.6 10^3/uL (1.5-5.0); LYMPH % 8.2 % (24.0-44.0); MEAN CORPUSCULAR HEMOGLOBIN 31.5 pg (27.0-33.0); MEAN CORPUSCULAR HGB CONC 33.8 g/dl (32.0-36.5); MEAN CORPUSCULAR VOLUME 93.1 fl (80.0-96.0); MONO # 0.6 10^3/uL (0.0-0.8); MONO % 7.5 % (2.0-8.0); NEUTROPHILS % 82.8 % (36.0-66.0); PLATELET COUNT, AUTOMATED 129 10^3/uL (150-450); RED BLOOD COUNT 2.48 10^6/uL (4.00-5.40); WHITE BLOOD COUNT 7.3 10^3/uL (4.0-10.0)
[2024-03-11] MEDS: LevoFLOXacin 500 MG TABLET PO SCH (08:31)
[2024-03-11] MEDS: CALCIUM CHLORIDE 10% 1 GM in D5W 100 ML IV ONE (10:28)
[2024-03-11] MEDS: PANTOPRAZOLE 40MG TAB (PROTONIX) PO SCH (10:42)
[2024-03-11] MEDS: KCL 10MEQ/100ML SWI (KRUN) 10 MEQ in IV 1 EA IV ONE (10:43)
[2024-03-11] MEDS: SPIRONOLACTONE 25 MG TAB PO ONE (12:33)
[2024-03-11] MEDS: SUCRALFATE 1 GM TAB PO SCH (12:36)
[2024-03-11] MEDS: KCL 10MEQ/100ML SWI (KRUN) 10 MEQ in IV 1 EA IV SCH (12:44)
[2024-03-11 18:51] LABS: BASO % 0.1 % (0.0-1.0); EOS % 0.2 % (0.0-3.0); HEMATOCRIT 27.3 % (36.0-47.0); HEMOGLOBIN 9.4 g/dl (12.0-15.5); LYMPH # 0.6 10^3/uL (1.5-5.0); LYMPH % 7.1 % (24.0-44.0); MEAN CORPUSCULAR HEMOGLOBIN 30.7 pg (27.0-33.0); MEAN CORPUSCULAR HGB CONC 34.4 g/dl (32.0-36.5); MEAN CORPUSCULAR VOLUME 89.2 fl (80.0-96.0); MONO # 0.6 10^3/uL (0.0-0.8); MONO % 6.8 % (2.0-8.0); NEUTROPHILS # 6.9 10^3/uL (1.5-8.5); NEUTROPHILS % 85.4 % (36.0-66.0); PLATELET COUNT, AUTOMATED 130 10^3/uL (150-450); RED BLOOD COUNT 3.06 10^6/uL (4.00-5.40); WHITE BLOOD COUNT 8.1 10^3/uL (4.0-10.0)
[2024-03-12 01:14] LABS: VENOUS BASE EXCESS -6.4 (-2.0-2.0); VENOUS O2 SATURATION 98.4 % (60.0-80.0); VENOUS PARTIAL PRESSURE O2 136.2 mmHg (30.0-50.0); VENOUS PH 7.369 UNITS (7.330-7.430); VENOUS STANDARD HCO3 19.2 MMOL/L
[2024-03-12] MEDS: methocarbamoL 500 MG TAB PO PRN (01:19)
[2024-03-12 01:23] LABS: HEMATOCRIT 26.3 % (36.0-47.0); HEMOGLOBIN 9.3 g/dl (12.0-15.5); MEAN CORPUSCULAR HEMOGLOBIN 31.3 pg (27.0-33.0); MEAN CORPUSCULAR HGB CONC 35.4 g/dl (32.0-36.5); MEAN CORPUSCULAR VOLUME 88.6 fl (80.0-96.0); PLATELET COUNT, AUTOMATED 128 10^3/uL (150-450); RED BLOOD COUNT 2.97 10^6/uL (4.00-5.40); WHITE BLOOD COUNT 7.3 10^3/uL (4.0-10.0)
[2024-03-12 01:51] LABS: CALCIUM LEVEL 6.5 MG/DL (8.3-10.6); CREATININE FOR GFR 1.81 MG/DL (0.55-1.30); GLOMERULAR FILTRATION RATE 28.2 (>32)
[2024-03-12 03:30] VITALS: BP 136/72; TEMP 97.9; O2SAT 94
[2024-03-12 07:05] LABS: CALCIUM LEVEL 6.6 MG/DL (8.3-10.6); CREATININE FOR GFR 1.78 MG/DL (0.55-1.30); GLOMERULAR FILTRATION RATE 28.8 (>32); POTASSIUM SERUM 2.9 MMOL/L (3.5-5.1)
[2024-03-12 08:00] VITALS: BP 131/69; TEMP 97.7; O2SAT 96
[2024-03-12] MEDS: POTASSIUM CHLORIDE 10MEQ SR TABLET PO SCH (08:45)
[2024-03-12] MEDS: KCL 10MEQ/100ML SWI (KRUN) 10 MEQ in IV 1 EA IV SCH (08:47)
[2024-03-12] MEDS ORDERED: ATROPINE SULFATE 1% OPHTH SOLN 2ML BTL SL PRN (11:00)
[2024-03-12] MEDS ORDERED: ONDANSETRON 4MG 2ML VIAL IV PRN (11:00)
[2024-03-12] MEDS ORDERED: FLEET ENEMA PR PRN (11:00)
[2024-03-12] MEDS ORDERED: SCOPOLAMINE 1MG TRANSDERMAL PATCH TOP PRN (11:00)
[2024-03-12] MEDS ORDERED: LORazepam 2 MG/ML 1ML VIAL IV PRN (11:00)
[2024-03-12 17:56] VITALS: BP 136/72
[2024-03-12] MEDS: MORPHINE 10MG/0.5ML ORAL CONCENTRATE SOLUTION U/D SL PRN (19:51)
[2024-03-13] MEDS: LORazepam 1 MG TAB PO PRN (00:16)
[2024-03-13] MEDS: ACETAMINOPHEN 650MG SUPP PR PRN (22:18)
[2024-03-14] MEDS: LIDOCAINE 5% (LIDODERM) PATCH TD STA (08:22)
[2024-03-14] MEDS ORDERED: ATRO2DRO4 SL (10:41)
[2024-03-14] MEDS ORDERED: LIDO5TD TD (10:41)
[2024-03-14] MEDS ORDERED: ACET65SU PR (10:41)
[2024-03-14] MEDS ORDERED: ATIV1TAB7 PO (10:41)
[2024-03-14] MEDS ORDERED: MORP1SOL5 PO (10:43)
[2024-03-14] MEDS ORDERED: ONDA-282 PO (11:04)
[2024-03-14] MEDS: LORazepam 1 MG TAB PO PRN (11:47)
[2024-03-14] MEDS: ACETAMINOPHEN 325 MG TAB PO STA (11:47)
[2024-03-15] MEDS ORDERED: LIDOCAINE 5% (LIDODERM) PATCH TD SCH (09:00)
== END 2024-03-14 11:56 | DRG 699 ==
LOC: M ED 11:04 → EDBD 11:04 → M ED INP 12:32 → M MSPAV 16:09
PROVIDERS: ADMIT Student in an Organized Health Care Education/Training Program; ATTEND Student in an Organized Health Care Education/Training Program
PROC: 30233N1 Transfusion of Nonautologous Red Blood Cells into Peripheral Vein, Percutaneous Approach (ICD-10-PCS; principal; 2024-03-10)
PROC: B246ZZZ Ultrasonography of Right and Left Heart (ICD-10-PCS; 2024-03-11)
DX: T83.511A Infection and inflammatory reaction due to indwelling urethral catheter, initial encounter (principal); N17.9 Acute kidney failure, unspecified; E87.0 Hyperosmolality and hypernatremia; E87.20 Acidosis, unspecified; I13.0 Hypertensive heart and chronic kidney disease with heart failure and stage 1 through stage 4 chronic kidney disease, or unspecified chronic kidney disease; I50.32 Chronic diastolic (congestive) heart failure; E86.0 Dehydration; E87.5 Hyperkalemia; Z66 Do not resuscitate; E83.42 Hypomagnesemia; F03.90 Unspecified dementia, unspecified severity, without behavioral disturbance, psychotic disturbance, mood disturbance, and anxiety; I27.20 Pulmonary hypertension, unspecified; N18.9 Chronic kidney disease, unspecified; G40.909 Epilepsy, unspecified, not intractable, without status epilepticus; E83.51 Hypocalcemia; E87.6 Hypokalemia; K21.9 Gastro-esophageal reflux disease without esophagitis; N31.9 Neuromuscular dysfunction of bladder, unspecified; M06.9 Rheumatoid arthritis, unspecified; E03.9 Hypothyroidism, unspecified; F41.9 Anxiety disorder, unspecified; N39.0 Urinary tract infection, site not specified; D64.9 Anemia, unspecified; Z79.899 Other long term (current) drug therapy; Z98.41 Cataract extraction status, right eye; Z98.42 Cataract extraction status, left eye; Z79.890 Hormone replacement therapy; Z79.52 Long term (current) use of systemic steroids; Z88.2 Allergy status to sulfonamides

== ENCOUNTER → 2024-03-09 | Outpatient (REF) | payer MEDICARE ==
[2024-03-09 09:17] LABS: BLOOD UREA NITROGEN 89 MG/DL (9-23); CALCIUM LEVEL 6.5 MG/DL (8.3-10.6); CARBON DIOXIDE LEVEL < 10.0 MMOL/L (20-31); CHLORIDE LEVEL 120 MMOL/L (98-107); CREATININE FOR GFR 2.26 MG/DL (0.55-1.30); GLOMERULAR FILTRATION RATE 21.8 (>32); GLUCOSE, FASTING 93 MG/DL (74-106); POTASSIUM SERUM 4.2 MMOL/L (3.5-5.1); SODIUM LEVEL 149 MMOL/L (136-145)
[2024-03-09 09:25] LABS: HEMATOCRIT 25.4 % (36.0-47.0); MEAN CORPUSCULAR HEMOGLOBIN 31.5 pg (27.0-33.0); MEAN CORPUSCULAR HGB CONC 31.5 g/dl (32.0-36.5); PLATELET COUNT, AUTOMATED 184 10^3/uL (150-450); RED BLOOD COUNT 2.54 10^6/uL (4.00-5.40); WHITE BLOOD COUNT 10.9 10^3/uL (4.0-10.0)
== END ==
PROVIDERS: ATTEND Nurse Practitioner Family
DX: N17.9 Acute kidney failure, unspecified (principal); D72.829 Elevated white blood cell count, unspecified; E87.5 Hyperkalemia; E86.0 Dehydration; R33.9 Retention of urine, unspecified

== ENCOUNTER → 2024-03-15 | Outpatient (REF) | payer MEDICARE ==
[~2024-03-15] MED LIST changes: +ACET65SU PR; +ATEN25TA PO; +ATIV1TAB7 PO; +ATRO2DRO4 SL; +BISA10SU27 PR; +BUSP10TA79 PO; +CALC500C16 PO; +DICL20GE TOP; +FLEEENE12 PR; +LIDO5TD TD; +MACR100C43 PO; +MILKSUS3 PO; +MORP1SOL5 PO; +ONDA-282 PO; +SERT-141 PO; +SIME125T PO; +SODI15SS PO
== END ==
PROVIDERS: ATTEND Internal Medicine
DX: N18.9 Chronic kidney disease, unspecified (principal); Z53.9 Procedure and treatment not carried out, unspecified reason